=== PATIENT | female | born 1940 | race Caucasian/White ===

== ENCOUNTER 2016-11-02 21:14 | Inpatient (IN) | payer MEDICARE ==
--- NOTE | 2016-11-02 21:27 | Emergency Department Report ---
HPI - General Time Seen by Provider: 11/02/16 21:20 - HPI HPI: Room 23 Patient is a 76-year-old female presenting with chief complaint of altered mental status. The patient's last known well time was at approximately 16:00 where she was walking and talking like her normal self. The daughter states at approximately 16:00 the patient was found to be altered. The patient would not speak or follow commands. The daughter states when the patient attempted to walk she appeared to be dragging her right side. The patient does not respond to questions when spoken in [place]. Location: Mental status Duration: [see above] Quality: Altered Severity: Moderate Modifying factors: [see above] Context: [see above] Mode of transportation: EMS ED Past Medical Hx - Past Medical History Hx Hypertension: Yes Additional medical history: Thyroid, Osteoporosis - Surgical History Hx Cholecystectomy: Yes - Family History Family history: no significant - Social History Smoking Status: Unknown if ever smoked - Medications Home Medications: Home Medications Medication Instructions Recorded Confirmed Last Taken Type Alendronate Sodium [Fosamax] 70 mg PO QWEEK 01/16/16 01/16/16 Unknown History Aspirin EC [Aspirin Enteric Coated 81 mg PO QDAY 01/16/16 01/16/16 Unknown History TAB] Ferrous Gluconate [Fergon 325 MG 325 mg PO QDAY 01/16/16 01/16/16 Unknown History tab] Levothyroxine [Synthroid] 25 mcg PO QAM 01/16/16 01/16/16 Unknown History Meloxicam [Mobic] 7.5 mg PO QDAY 01/16/16 01/16/16 Unknown History Oxybutynin Chloride [Ditropan Xl] 10 mg PO QDAY 01/16/16 01/16/16 Unknown History Simvastatin [Zocor TAB] 10 mg PO QHS 01/16/16 01/16/16 Unknown History Famotidine [Pepcid] 20 mg PO BID #60 tablet 01/19/16 Unknown Rx ED Review of Systems ROS: Stated complaint: POSS STROKE Other details as noted in HPI Comment: Unobtainable due to pts medical conditions Physical Exam - Physical Exam Physical Exam: GENERAL: The patient is well-developed well-nourished elderly female lying on stretcher nonverbal and occasionally making eye contact and exhibits lipsmacking at times. [] HEENT: Normocephalic. Atraumatic. has moist mucous membranes. NECK: Supple. Trachea midline CHEST/LUNGS: Clear to auscultation. There is no respiratory distress noted. HEART/CARDIOVASCULAR: Regular. There is no tachycardia. There is no gallop rub or murmur. ABDOMEN: Abdomen is soft, nontender. Patient has normal bowel sounds. There is no abdominal distention. SKIN: There is no rash. There is no edema. There is no diaphoresis. NEURO: The patient is awake with eyes open but is nonverbal. The patient is only intermittently cooperative with commands (the patient does attempt to move her feet when commanded). Minimal movement seen at the right foot when prompted to move it. The patient is nonverbal MUSCULOSKELETAL: There is no evidence of acute injury. ED Course - Consultations Consultation #1: 11/02/16 21:[address] Butler- chuck discussed and he recommends consulting the on-call interventionalist Dr. Mittal Consultation #2: 11/02/16 22:[address] Mittal- chuck discussed and he recommends repeating EKG 11/02/16 22:17 Repeat EKG sent to Dr. Mittal and discussed. Does not believe it represents a STEMI. Recommends canceling the STEMI. Will follow-up with troponin results 11/02/16 22:[address] Mittal-recommends administering aspirin, heparin and atorvastatin 40 mg. Having patient admitted by the hospitalist ED Medical Decision Making - Lab Data Result diagrams: 11/02/16 21:20 11/02/16 21:20 Laboratory Tests 11/02/16 11/02/16 11/02/16 21:20 21:20 21:20 WBC 27.3 H RBC 3.87 Hgb 11.9 Hct 34.8 MCV 90 MCH 31 MCHC 34 RDW 13.3 Plt Count 539 H Add Manual Diff Complete Total Counted 100 Seg Neutrophils % Flat Lock Machine Operator Seg Neuts % (Manual) 89.0 H Band Neutrophils % 0 Lymphocytes % (Manual) 7.0 L Reactive Lymphs % (Man) 0 Monocytes % (Manual) 4.0 Eosinophils % (Manual) 0 Basophils % (Manual) 0 Metamyelocytes % 0 Myelocytes % 0 Promyelocytes % 0 Blast Cells % 0 Nucleated RBC % Not Reportable Seg Neutrophils # Man 24.3 H Band Neutrophils # 0.0 Lymphocytes # (Manual) 1.9 Abs React Lymphs (Man) 0.0 Monocytes # (Manual) 1.1 H Eosinophils # (Manual) 0.0 Basophils # (Manual) 0.0 Metamyelocytes # 0.0 Myelocytes # 0.0 Promyelocytes # 0.0 Blast Cells # 0.0 WBC Morphology Not Reportable Hypersegmented Neuts Not Reportable Hyposegmented Neuts Not Reportable Hypogranular Neuts Not Reportable Smudge Cells Not Reportable Toxic Granulation Not Reportable Toxic Vacuolation Not Reportable Dohle Bodies Not Reportable Pelger-Huet Anomaly Not Reportable Shweta Rods Not Reportable Platelet Estimate Appears increased Clumped Platelets Not Reportable Plt Clumps, EDTA Not Reportable Large Platelets Not Reportable Giant Platelets Not Reportable Platelet Satelliting Not Reportable Plt Morphology Comment Not Reportable RBC Morphology Not Reportable Dimorphic RBCs Not Reportable Polychromasia Not Reportable Hypochromasia Not Reportable Poikilocytosis 1+ Anisocytosis 1+ Microcytosis Not Reportable Macrocytosis Not Reportable Spherocytes Not Reportable Pappenheimer Bodies Not Reportable Sickle Cells Not Reportable Target Cells Not Reportable Tear Drop Cells Not Reportable Ovalocytes Not Reportable Helmet Cells Not Reportable [place] Bodies Not Reportable [place] Rings Not Reportable [place] Cells Not Reportable Bite Cells Not Reportable Crenated Cell Not Reportable Elliptocytes Not Reportable Acanthocytes (Spur) Not Reportable Rouleaux Not Reportable Hemoglobin C Crystals Not Reportable Schistocytes Not Reportable Malaria parasites Not Reportable Renny Bodies Not Reportable Hem Pathologist Commnt No PT 13.5 INR 1.04 APTT 25.3 Thrombin Time 15.3 Sodium 115 L* Potassium 4.8 Chloride 78.0 L Carbon Dioxide 21 L Anion Gap 22 BUN 8 Creatinine 0.6 L Estimated GFR > 60 BUN/Creatinine Ratio 13.33 Glucose 217 H Calcium 8.9 Total Creatine Kinase 234 H CK-MB (CK-2) 17.8 H CK-MB (CK-2) Rel Index 7.6 H Troponin T 0.385 H* TSH Free T4 11/02/16 21:20 WBC RBC Hgb Hct MCV MCH MCHC RDW Plt Count Add Manual Diff Total Counted Seg Neutrophils % Seg Neuts % (Manual) Band Neutrophils % Lymphocytes % (Manual) Reactive Lymphs % (Man) Monocytes % (Manual) Eosinophils % (Manual) Basophils % (Manual) Metamyelocytes % Myelocytes % Promyelocytes % Blast Cells % Nucleated RBC % Seg Neutrophils # Man Band Neutrophils # Lymphocytes # (Manual) Abs React Lymphs (Man) Monocytes # (Manual) Eosinophils # (Manual) Basophils # (Manual) Metamyelocytes # Myelocytes # Promyelocytes # Blast Cells # WBC Morphology Hypersegmented Neuts Hyposegmented Neuts Hypogranular Neuts Smudge Cells Toxic Granulation Toxic Vacuolation Dohle Bodies Pelger-Huet Anomaly Shweta Rods Platelet Estimate Clumped Platelets Plt Clumps, EDTA Large Platelets Giant Platelets Platelet Satelliting Plt Morphology Comment RBC Morphology Dimorphic RBCs Polychromasia Hypochromasia Poikilocytosis Anisocytosis Microcytosis Macrocytosis Spherocytes Pappenheimer Bodies Sickle Cells Target Cells Tear Drop Cells Ovalocytes Helmet Cells [place] Bodies [place] Rings Chhaya Cells Bite Cells Crenated Cell Elliptocytes Acanthocytes (Spur) Rouleaux Hemoglobin C Crystals Schistocytes Malaria parasites Renny Bodies Hem Pathologist Commnt PT INR APTT Thrombin Time Sodium Potassium Chloride Carbon Dioxide Anion Gap BUN Creatinine Estimated GFR BUN/Creatinine Ratio Glucose Calcium Total Creatine Kinase CK-MB (CK-2) CK-MB (CK-2) Rel Index Troponin T TSH 0.397 Free T4 2.02 H - EKG Data -: EKG Interpreted by Me EKG shows normal: sinus rhythm Rate: normal - EKG Data When compared to previous EKG there are: changes noted Interpretation: nonspecific ST-T wave [place] (ST elevation in leads V1, V2), other (EKG #[address] elevation V1, V2 without reciprocal changes) - Radiology Data Radiology results: report reviewed, image reviewed (CT head) - Differential Diagnosis altered mental status, CVA, hypothyroidism, ICH Critical care attestation.: If time is entered above; I have spent that time in minutes in the direct care of this critically ill patient, excluding procedure time. ED Disposition Clinical Impression: Altered mental status, Hyponatremia, Fever, Leukocytosis Disposition: OP ADMITTED IP TO THIS HOSP Is pt being admited?: Yes Does the pt Need Aspirin: Yes Condition: Serious Referrals: PRIMARY CARE, [Primary Care Provider] - 3-5 Days Time of Disposition: 22:46 (hospitalist notified)
[2016-11-02 21:32] LABS: Hematocrit 34.8 % (30.3-42.9); Hemoglobin 11.9 gm/dl (10.1-14.3); Mean Corpuscular HGB Conc 34 % (30-34); Mean Corpuscular Hemoglobin 31 pg (28-32); Mean Corpuscular Volume 90 fl (79-97); Platelet Count 539 K/mm3 (140-440); Red Blood Count 3.87 M/mm3 (3.65-5.03); Red Cell Distribution Width 13.3 % (13.2-15.2)
[2016-11-02 21:33] LABS: White Blood Count 27.3 K/mm3 (4.5-11.0)
--- NOTE | 2016-11-02 21:40 | Cat Scan Report ---
FINAL REPORT EXAM: CT HEAD/BRAIN WO CON HISTORY: altered mental status, right-sided weakness TECHNIQUE: CT imaging is acquired through the brain without contrast. Transaxial reformations are provided. PRIORS: None. FINDINGS: Ventricles and CSF spaces are proportionately enlarged, consistent with parenchymal atrophy. Scattered deep and subcortical white matter hypodense foci are confluent in some areas and are compatible with microvascular angiopathy. Basal ganglia mineralization. No acute intracranial hemorrhage or mass effect. Calvarium and superficial scalp are intact. Partially visualized paranasal sinuses are clear. Mastoids are clear. IMPRESSION: No acute intracranial abnormality. Consider MRI follow-up. 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 Dr. Centeno notified of findings at 2036 CLAIMS AUDITOR following the examination.
[2016-11-02 22:00] LABS: Creatine Kinase MB 17.8 ng/mL (0.0-4.0)
[2016-11-02] MEDS ORDERED: HEPARIN ONE (22:00)
[2016-11-02] MEDS ORDERED: NACL 0.9% 1000 ML 0 ML ONE (22:00)
[2016-11-02 22:01] LABS: Anion Gap 22 mmol/L; BUN/Creatinine Ratio 13.33; Blood Urea Nitrogen 8 mg/dL (7-17); Calcium 8.9 mg/dL (8.4-10.2); Carbon Dioxide 21 mmol/L (22-30); Creatine Kinase 234 units/L (30-135); Glucose 217 mg/dL (65-100); INR 1.04 (0.87-1.13); Potassium 4.8 mmol/L (3.6-5.0)
[2016-11-02] MEDS ORDERED: ASPIRIN ONE (22:01)
[2016-11-02 22:02] LABS: Partial Thromboplastin Time 25.3 Sec. (24.2-36.6)
[2016-11-02 22:26] LABS: Basophils % (Manual) 0 % (0.0-1.8); Blastocytes % (Manual) 0 %; Eosinophils % (Manual) 0 % (0.0-4.3)
[2016-11-02] MEDS ORDERED: HEPARIN 10,000 UNITS/10 ML IV ONE (22:26)
[2016-11-02 22:27] LABS: Anisocytosis 1+; Diff Status Complete; Platelet Estimate Appears Increased; Poikilocytosis 1+
[2016-11-02] MEDS ORDERED: ASPIRIN PR ONE (22:27)
[2016-11-02] MEDS ORDERED: NACL 0.9% 1000 ML 1,000 ML ONE (22:29)
[2016-11-02 22:30] LABS: Sodium 115 mmol/L (137-145)
[2016-11-02] MEDS ORDERED: NACL 0.9% 1000 ML 1,000 ML IV ONE (22:33)
[2016-11-02 22:45] LABS: Cholesterol 142 mg/dL (50-199); HDL Cholesterol 52 mg/dL (40-59); LDL Cholesterol,Direct 67 mg/dL (50-130); Triglycerides 115 mg/dL (2-149)
[2016-11-02 22:51] LABS: Urine Drugs of Abuse Note Disclamer
[2016-11-02] MEDS ORDERED: ZOSYN/NS 4.5GM/100ML 4.5 GM/100 ML VIAL IV ONE (22:51)
[2016-11-02] MEDS ORDERED: HEPARIN/ 0.45% NACL-25,000 UNIT/500 ML 25,000 UNIT/500 ML BAG IV SCH (23:00)
[2016-11-02 23:37] LABS: Bilirubin,Urine NEG (Negative); Blood,Urine SM (Negative); Ketones,Urine NEG (Negative); Leukocyte Esterase,Urine NEG (Negative); Nitrite,Urine NEG (Negative); Urobilinogen,Urine < 2.0 mg/dL (<2.0); WBC,Urine < 1.0 /HPF (0.0-6.0)
--- NOTE | 2016-11-02 23:56 | History and Physical Report ---
History of Present Illness Date of examination: 11/02/16 Date of admission: 11/02/2016 Chief complaint: Altered altered sensorium since 4 PM. History of present illness: Altered sensorium since 4 PM. 76-year-old female presents to the ER with absent mental status. Patient's last well-known time was 1600 hrs. where she was walking and talking like her normal self. Around 4 PM patient was noted to have altered mental status. Patient is confused and smacking her lips. Also not using her right side well. Not walking. No nausea no vomiting. No chest pain. No diaphoresis no palpitations. Past medical history significant for hypertension hypothyroidism and osteoporosis and urinary incontinence. No fever no chills. Past History Past Medical History: anemia, arthritis, hypertension, hypothyroidism, other ( osteoporosis urinary incontinence) Past Surgical History: cholecystectomy Social history: denies: smoking, alcohol abuse Family history: hypertension Medications and Allergies Allergies Allergy/AdvReac Type Severity Reaction Status Date / Time No Known Allergies Allergy Verified 01/16/16 22:10 Home Medications Medication Instructions Recorded Confirmed Last Taken Type Alendronate Sodium [Fosamax] 70 mg PO QWEEK 01/16/16 01/16/16 Unknown History Aspirin EC [Aspirin Enteric Coated 81 mg PO QDAY 01/16/16 01/16/16 Unknown History TAB] Ferrous Gluconate [Fergon 325 MG 325 mg PO QDAY 01/16/16 01/16/16 Unknown History tab] Levothyroxine [Synthroid] 25 mcg PO QAM 01/16/16 01/16/16 Unknown History Meloxicam [Mobic] 7.5 mg PO QDAY 01/16/16 01/16/16 Unknown History Oxybutynin Chloride [Ditropan Xl] 10 mg PO QDAY 01/16/16 01/16/16 Unknown History Simvastatin [Zocor TAB] 10 mg PO QHS 01/16/16 01/16/16 Unknown History Famotidine [Pepcid] 20 mg PO BID #60 tablet 01/19/16 Unknown Rx Active Meds: Active Medications Atorvastatin Calcium (Lipitor) 40 mg PO QHS THAO Heparin Sodium/Sodium Chloride (Heparin/ 0.45% Nacl-25,000 Unit/500 Ml) 25,000 unit in 500 mls @ 12 mls/hr IV TITRATE THAO; 600 UNITS/HR PRN Reason: Protocol Last Admin: 11/02/16 22:45 Dose: 600 units/hr, 12 mls/hr Review of Systems All systems: negative Constitutional: no weight loss, no weight gain Ears, nose, mouth and throat: no nasal congestion, no nasal discharge, no hoarseness, no sore throat Breasts: deferred Cardiovascular: no chest pain, no orthopnea, no palpitations, no rapid/ irregular heart beat, no edema, no syncope Respiratory: no cough, no cough with sputum, no excessive sputum, no hemoptysis , no shortness of breath, no dyspnea on exertion Gastrointestinal: no nausea, no vomiting, no diarrhea, no constipation, no change in bowel habits Genitourinary Female: no dysuria, no urinary frequency, no urgency, no stress incontinence, no post void dribbling, no incomplete emptying, no urge incontinence Menstruation: ammenorrhea Rectal: no incontinence, no bleeding Musculoskeletal: no neck stiffness, no neck pain Integumentary: no rash, no pruritis, no redness, no sores Neurological: no seizures, no syncope Psychiatric: no anxiety, no depression Endocrine: no cold intolerance, no heat intolerance, no polyphagia, no excessive thirst Hematologic/Lymphatic: no easy bruising, no easy bleeding Allergic/Immunologic: no urticaria, no allergic rhinitis, no wheezing Exam - Physical Exam Narrative exam: Well-developed well-nourished female lying in bed confused - Constitutional Vitals: Temp Pulse Resp BP Pulse Ox 100.6 F H 112 H 16 133/85 100 11/02/16 21:51 11/02/16 23:00 11/02/16 23:00 11/02/16 23:00 11/02/16 23:00 General appearance: Present: no acute distress, well-nourished - EENT Eyes: Present: PERRL ENT: hearing intact, clear oral mucosa - Neck Neck: Present: supple, normal ROM - Respiratory Respiratory effort: normal Respiratory: bilateral: CTA - Cardiovascular Rhythm: regular Heart Sounds: Present: S1 & S2. Absent: rub, click - Extremities Extremities: pulses symmetrical, No edema Peripheral Pulses: within normal limits - Abdominal General gastrointestinal: Present: soft, non-tender, non-distended, normal bowel sounds Female genitourinary: Present: normal - Rectal Rectal Exam: deferred - Integumentary Integumentary: Present: clear, warm, dry - Musculoskeletal Musculoskeletal: gait normal, strength equal bilaterally - Psychiatric Psychiatric: other (confused and depressed. Altered SENSORIUM.) - Neurologic Neurologic: CNII-XII intact, moves all extremities - Allied Health Allied health notes reviewed: nursing, case management Results - Labs CBC & Chem 7: 11/02/16 21:20 11/02/16 21:20 Labs: Laboratory Last Values WBC 27.3 K/mm3 (4.5-11.0) H 11/02/16 21:20 RBC 3.87 M/mm3 (3.65-5.03) 11/02/16 21:20 Hgb 11.9 gm/dl (10.1-14.3) 11/02/16 21:20 Hct 34.8 % (30.3-42.9) 11/02/16 21:20 MCV 90 fl (79-97) 11/02/16 21:20 MCH 31 pg (28-32) 11/02/16 21:20 MCHC 34 % (30-34) 11/02/16 21:20 RDW 13.3 % (13.2-15.2) 11/02/16 21:20 Plt Count 539 K/mm3 (140-440) H 11/02/16 21:20 Add Manual Diff Complete 11/02/16 21:20 Total Counted 100 11/02/16 21:20 Seg Neutrophils % Mannequin Wig Maker 11/02/16 21:20 Seg Neuts % (Manual) 89.0 % (40.0-70.0) H 11/02/16 21:20 Band Neutrophils % 0 % 11/02/16 21:20 Lymphocytes % (Manual) 7.0 % (13.4-35.0) L 11/02/16 21:20 Reactive Lymphs % (Man) 0 % 11/02/16 21:20 Monocytes % (Manual) 4.0 % (0.0-7.3) 11/02/16 21:20 Eosinophils % (Manual) 0 % (0.0-4.3) 11/02/16 21:20 Basophils % (Manual) 0 % (0.0-1.8) 11/02/16 21:20 Metamyelocytes % 0 % 11/02/16 21:20 Myelocytes % 0 % 11/02/16 21:20 Promyelocytes % 0 % 11/02/16 21:20 Blast Cells % 0 % 11/02/16 21:20 Nucleated RBC % Not Reportable 11/02/16 21:20 Seg Neutrophils # Man 24.3 K/mm3 (1.8-7.7) H 11/02/16 21:20 Band Neutrophils # 0.0 K/mm3 11/02/16 21:20 Lymphocytes # (Manual) 1.9 K/mm3 (1.2-5.4) 11/02/16 21:20 Abs React Lymphs (Man) 0.0 K/mm3 11/02/16 21:20 Monocytes # (Manual) 1.1 K/mm3 (0.0-0.8) H 11/02/16 21:20 Eosinophils # (Manual) 0.0 K/mm3 (0.0-0.4) 11/02/16 21:20 Basophils # (Manual) 0.0 K/mm3 (0.0-0.1) 11/02/16 21:20 Metamyelocytes # 0.0 K/mm3 11/02/16 21:20 Myelocytes # 0.0 K/mm3 11/02/16 21:20 Promyelocytes # 0.0 K/mm3 11/02/16 21:20 Blast Cells # 0.0 K/mm3 11/02/16 21:20 WBC Morphology Not Reportable 11/02/16 21:20 Hypersegmented Neuts Not Reportable 11/02/16 21:20 Hyposegmented Neuts Not Reportable 11/02/16 21:20 Hypogranular Neuts Not Reportable 11/02/16 21:20 Smudge Cells Not Reportable 11/02/16 21:20 Toxic Granulation Not Reportable 11/02/16 21:20 Toxic Vacuolation Not Reportable 11/02/16 21:20 Dohle Bodies Not Reportable 11/02/16 21:20 Pelger-Huet Anomaly Not Reportable 11/02/16 21:20 Shweta Rods Not Reportable 11/02/16 21:20 Platelet Estimate Appears increased 11/02/16 21:20 Clumped Platelets Not Reportable 11/02/16 21:20 Plt Clumps, EDTA Not Reportable 11/02/16 21:20 Large Platelets Not Reportable 11/02/16 21:20 Giant Platelets Not Reportable 11/02/16 21:20 Platelet Satelliting Not Reportable 11/02/16 21:20 Plt Morphology Comment Not Reportable 11/02/16 21:20 RBC Morphology Not Reportable 11/02/16 21:20 Dimorphic RBCs Not Reportable 11/02/16 21:20 Polychromasia Not Reportable 11/02/16 21:20 Hypochromasia Not Reportable 11/02/16 21:20 Poikilocytosis 1+ 11/02/16 21:20 Anisocytosis 1+ 11/02/16 21:20 Microcytosis Not Reportable 11/02/16 21:20 Macrocytosis Not Reportable 11/02/16 21:20 Spherocytes Not Reportable 11/02/16 21:20 Pappenheimer Bodies Not Reportable 11/02/16 21:20 Sickle Cells Not Reportable 11/02/16 21:20 Target Cells Not Reportable 11/02/16 21:20 Tear Drop Cells Not Reportable 11/02/16 21:20 Ovalocytes Not Reportable 11/02/16 21:20 Helmet Cells Not Reportable 11/02/16 21:20 [place] Bodies Not Reportable 11/02/16 21:20 [place] Rings Not Reportable 11/02/16 21:20 Chhaya Cells Not Reportable 11/02/16 21:20 Bite Cells Not Reportable 11/02/16 21:20 Crenated Cell Not Reportable 11/02/16 21:20 Elliptocytes Not Reportable 11/02/16 21:20 Acanthocytes (Spur) Not Reportable 11/02/16 21:20 Rouleaux Not Reportable 11/02/16 21:20 Hemoglobin C Crystals Not Reportable 11/02/16 21:20 Schistocytes Not Reportable 11/02/16 21:20 Malaria parasites Not Reportable 11/02/16 21:20 Renny Bodies Not Reportable 11/02/16 21:20 Hem Pathologist Commnt No 11/02/16 21:20 PT 13.5 Sec. (12.2-14.9) 11/02/16 21:20 INR 1.04 (0.87-1.13) 11/02/16 21:20 APTT 25.3 Sec. (24.2-36.6) 11/02/16 21:20 Thrombin Time 15.3 Sec. (15.1-19.6) 11/02/16 21:20 Sodium 115 mmol/L (137-145) L* 11/02/16 21:20 Potassium 4.8 mmol/L (3.6-5.0) 11/02/16 21:20 Chloride 78.0 mmol/L (98-107) L 11/02/16 21:20 Carbon Dioxide 21 mmol/L (22-30) L 11/02/16 21:20 Anion Gap 22 mmol/L 11/02/16 21:20 BUN 8 mg/dL (7-17) 11/02/16 21:20 Creatinine 0.6 mg/dL (0.7-1.2) L 11/02/16 21:20 Estimated GFR > 60 ml/min 11/02/16 21:20 BUN/Creatinine Ratio 13.33 % 11/02/16 21:20 Glucose 217 mg/dL (65-100) H 11/02/16 21:20 Calcium 8.9 mg/dL (8.4-10.2) 11/02/16 21:20 Total Creatine Kinase 234 units/L (30-135) H 11/02/16 21:20 CK-MB (CK-2) 17.8 ng/mL (0.0-4.0) H 11/02/16 21:20 CK-MB (CK-2) Rel Index 7.6 (0-4) H 11/02/16 21:20 Troponin T 0.385 ng/mL (0.00-0.029) H* 11/02/16 21:20 Triglycerides 115 mg/dL (2-149) 11/02/16 21:20 Cholesterol 142 mg/dL (50-199) 11/02/16 21:20 LDL Cholesterol Direct 67 mg/dL (50-130) 11/02/16 21:20 HDL Cholesterol 52 mg/dL (40-59) 11/02/16 21:20 Cholesterol/HDL Ratio 2.73 % 11/02/16 21:20 TSH 0.397 mlU/mL (0.270-4.200) 11/02/16 21:20 Free T4 2.02 ng/dL (0.76-1.46) H 11/02/16 21:20 Urine Color Yellow (Yellow) 11/02/16 22:00 Urine Turbidity Clear (Clear) 11/02/16 22:00 Urine pH 8.0 (5.0-7.0) H 11/02/16 22:00 Ur Specific [place] 1.008 (1.003-1.030) 11/02/16 22:00 Urine Protein 30 mg/dl mg/dL (Negative) 11/02/16 22:00 Urine Glucose (UA) >=500 mg/dL (Negative) 11/02/16 22:00 Urine Ketones Neg mg/dL (Negative) 11/02/16 22:00 Urine Blood Sm (Negative) 11/02/16 22:00 Urine Nitrite Neg (Negative) 11/02/16 22:00 Urine Bilirubin Neg (Negative) 11/02/16 22:00 Urine Urobilinogen < 2.0 mg/dL (<2.0) 11/02/16 22:00 Ur Leukocyte Esterase Neg (Negative) 11/02/16 22:00 Urine WBC (Auto) < 1.0 /HPF (0.0-6.0) 11/02/16 22:00 Urine RBC (Auto) 2.0 /HPF (0.0-6.0) 11/02/16 22:00 Urine Opiates Screen Presumptive negative 11/02/16 22:00 Urine Methadone Screen Presumptive negative 11/02/16 22:00 Ur Barbiturates Screen Presumptive negative 11/02/16 22:00 Ur Phencyclidine Scrn Presumptive negative 11/02/16 22:00 Ur Amphetamines Screen Presumptive negative 11/02/16 22:00 U Benzodiazepines Scrn Presumptive negative 11/02/16 22:00 Urine Cocaine Screen Presumptive negative 11/02/16 22:00 U Marijuana (THC) Screen Presumptive negative 11/02/16 22:00 Drugs of Abuse Note Disclamer 11/02/16 22:00 Short CBC 11/02/16 Range/Units 21:20 WBC 27.3 H (4.5-11.0) K/mm3 Hgb 11.9 (10.1-14.3) gm/dl Hct 34.8 (30.3-42.9) % Plt Count 539 H (140-440) K/mm3 BMP 11/02/16 21:20 Sodium 115 L* Potassium 4.8 Chloride 78.0 L Carbon Dioxide 21 L BUN 8 Creatinine 0.6 L Glucose 217 H Calcium 8.9 Cardiac Enzymes 11/02/16 Range/Units 21:20 Total Creatine Kinase 234 H (30-135) units/L CK-MB (CK-2) 17.8 H (0.0-4.0) ng/mL Troponin T 0.385 H* (0.00-0.029) ng/mL Urine 11/02/16 Range/Units 22:00 Urine Color Yellow (Yellow) Urine pH 8.0 H (5.0-7.0) Ur Specific [place] 1.008 (1.003-1.030) Urine Protein 30 mg/dl (Negative) mg/dL Urine Glucose (UA) >=500 (Negative) mg/dL - Imaging and Cardiology EKG: report reviewed (EKG shows sinus tachycardia nonspecific ST-T wave abnormalities no significant change from 03/07/2012.) Assessment and Plan Advance Directives: Yes (full code) VTE prophylaxis?: Chemical (Lovenox 40 mg subcutaneous daily.) - Patient Problems (1) Sepsis Current Visit: Yes Status: Acute Qualifiers: Sepsis type: S Plan to address problem: Sepsis workup. Broad spectrum antibiotics in the form of Zosyn. Source of infection unclear. Patient moving all 4 extremities. Stroke very unlikely. We will repeat the lactate within 3 hours. We'll admit to the floor. Medical (2) Hyponatremia Current Visit: Yes Status: Acute Plan to address problem: etiology of hyponatremia unclear. Patient not on any diuretics. We will get urine lites. Infuse 3% normal saline at 40 mL per hour. (3) Altered mental status Current Visit: Yes Status: Acute Qualifiers: Altered mental status type: disorientation Coma depth: C Coma timing: C Qualified Code(s): R41.0 - Disorientation, unspecified Plan to address problem: Altered mental status secondary to sepsis and hyponatremia. 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 We will get urine lytes. (4) Osteoporosis Current Visit: Yes Status: Chronic Plan to address problem: Will hold her alendronate for the time being. (5) Hypothyroidism Current Visit: Yes Status: Chronic Qualifiers: Hypothyroidism type: acquired Qualified Code(s): E03.9 - Hypothyroidism, unspecified Plan to address problem: Continue Synthroid 25 g by mouth daily. (6) Urinary incontinence Current Visit: Yes Status: Chronic Qualifiers: Urinary Incontinence type: mixed stress and urge incontinence Qualified Code(s): N39.46 - Mixed incontinence Plan to address problem: Continue oxybutynin 10 mg once a day. (7) Osteoarthritis Current Visit: Yes Status: Chronic Qualifiers: Osteoarthritis location: hip Osteoarthritis type: O Spinal region: S Spinal osteoarthritis complication: S Laterality: L Plan to address problem: Continue meloxicam 7.5 once a day. (8) DVT prophylaxis Current Visit: Yes Status: Acute Plan to address problem: Lovenox 40 mg subcutaneous daily.
--- NOTE | 2016-11-03 01:46 | Admit Criteria Form ---
Admission Criteria Documentation: HYPONATREMIA; HYPERNATREMIA; HYPOKALEMIA; HYPERKALEMIA; HYPOCALCEMIA; HYPERCALCEMIA Clinical Indications for Inpatient Care (Place 'X' for any and all applicable criteria): Ongoing inpatient care may be indicated for ANY ONE of the following [G](1)(2)(3 )(5): [ X]I. Hyponatremia with ANY ONE of the following: [ X]a) Sodium less than 130 mEq/L (mmol/L) (new) (6)(22) [ ]b) Sodium less than 135 mEq/L (mmol/L) with ANY ONE of the following: [ ]i) Severe medical etiology requiring inpatient management (eg, heart failure, hypovolemia) [ ]ii) Altered mental status [ ]iii) Seizures [ ]II. Hypernatremia with ANY ONE of the following: [ ]a) Sodium greater than 155 mEq/L (mmol/L) [ ]b) Sodium greater than 150 mEq/L (mmol/L) with ANY ONE of the following: [ ] i) Altered mental status [ ]ii) Seizures [ ]iii) Severe medical etiology (eg, hypovolemia, diabetes insipidus) [ ]iv) Severe weakness [ ]v) Severe medical etiology (eg, hemolysis, infection, drug overdose) [ ]III. Hypokalemia with ANY ONE of the following: [ ]a) Potassium less than 2.5 mEq/L (mmol/L) despite outpatient and emergency treatment [ ]b) Potassium less than 3.0 mEq/L (mmol/L) with ANY ONE of the following: [ ]i) Weakness [ ]ii) Cardiac abnormality (eg, arrhythmia, conduction disturbance) [ ]iii) Cardiac ischemia [ ]iv) Ileus [ ]v) Ongoing medical cause requiring inpatient management. ( e.g., acute renal wasting, SIADH) [ ]vi) Other severe symptoms [ ] IV. Hyperkalemia with ANY ONE of the following: [ ]a) Potassium greater than 6.5 mEq/L (mmol/L) [ ]b) Potassium greater than 5 mEq/L (mmol/L) with ANY ONE of the following: [ ]i) Severe ECG findings [H] [ ]ii) Acute worsening of renal failure (creatinine greater than 2.5 mg/dL (221 micromoles/L) or significant elevation for age and size) [ ] V. Hypocalcemia with ANY ONE of the following: [ ]a) Calcium less than 7 mg/dL (1.75 mmol/L) despite outpatient and emergency treatment(19) [ ]b) Calcium less than 8 mg/dL (2 mmol/L) with significant symptoms or findings; examples include: [ ]i) Cardiac abnormality (eg, arrhythmia or conduction disturbance) [ ]ii) Altered mental status [ ]iii) Seizures [ ]iv) Breathing difficulty [ ]v) Muscle spasms [ ]. Hypercalcemia with ANY ONE of the following: [ ]a) Calcium greater than 14 mg/dL (3.5 mmol/L) [ ]b) Calcium greater than 12 mg/dL (3 mmol/L) with ANY ONE of the following: [ ]i) Significant dehydration or hypovolemia as indicated by ANY ONE of the following(2): [ ]1. Clinically significant dehydration as indicated by ANY ONE of the following: [ ]A. Acute loss of weight from baseline (5% of body weight in adults, 9% in pediatric patients) [ ]B. Hemodynamic instability [ ]C. Acute renal failure [ ]D. Serum sodium greater than 150 mEq/L (mmol/L) [ ]2) Dehydration that is persistent indicated by ALL of the following: [ ]A. Oral rehydration therapy not tolerated or insufficient to adequately correct dehydration [ ]B. Appropriate intravenous treatment (eg, fluids ) does not readily correct dehydration ie, after 12 to 24 hours of treatment) [ ]ii) Significant symptoms or findings; examples include: [ ]1) Altered mental status [ ]2) Cardiac abnormality (eg, arrhythmia, conduction disturbance) [ ]3) Cardiac abnormality (eg, arrhythmia, conduction disturbance) The original [email or web address] [email or web address] content created by [employer] has been revised. The portions of the content which have been revised are identified through the use of italic text or in bold, and [facility] has neither reviewed nor approved the modified material. All other unmodified content is copyright [facility] [employer] Please see references footnoted in the original [facility] [employer] edition 2016 Admission Criteria Met: Yes
[2016-11-03] MEDS ORDERED: MILK OF MAGNESIA PO PRN (03:28)
[2016-11-03] MEDS ORDERED: ZOFRAN IV PRN (03:28)
[2016-11-03] MEDS ORDERED: DULCOLAX PR PRN (03:28)
[2016-11-03] MEDS ORDERED: NACL 3% 500 ML IV ONE (03:36)
[2016-11-03] MEDS ORDERED: D5NS 1,000 ML IV SCH (04:00)
[2016-11-03] MEDS ORDERED: SYNTHROID PO SCH (06:00)
[2016-11-03 06:30] LABS: Anion Gap 22 mmol/L; Blood Urea Nitrogen 12 mg/dL (7-17); Calcium 8.5 mg/dL (8.4-10.2); Carbon Dioxide 22 mmol/L (22-30); Chloride 85.4 mmol/L (98-107); Glucose 185 mg/dL (65-100); Potassium 4.2 mmol/L (3.6-5.0); Sodium 125 mmol/L (137-145)
[2016-11-03] MEDS: ZOSYN/NS 4.5GM/100ML 4.5 GM/100 ML VIAL IV SCH ×3 (06:57→22:02)
--- NOTE | 2016-11-03 07:11 | Consultation ---
History of Present Illness - Reason for Consult Consult date: 11/03/16 hyponatremia - History of Present Illness Patient is a 76-year-old female with pmh significant for Hypothyroid, GERD , Hypothyroid, Urinary incontinence and previuos h/o Hyponatremia was brought into the ER by her daughter for evaluation of altered mental status. Unable to obtain any history from patient and family members speak very little Scottish. Around 4 PM on the day of presentation patient was noted to have altered mental status. Patient was confused, smacking her lips and not using her right side well. There was no h/o nausea, vomiting, diarrhea, fever, chills, chest pain, seizure or syncope. Her Sodium level was 115 on presentation has improved to 125 with 3% saline. Renal function is normal. Past History Past Medical History: anemia, arthritis, hypertension, hypothyroidism, other ( osteoporosis urinary incontinence) Past Surgical History: cholecystectomy Social history: denies: smoking, alcohol abuse Family history: hypertension Medications and Allergies Allergies Allergy/AdvReac Type Severity Reaction Status Date / Time No Known Allergies Allergy Verified 01/16/16 22:10 Home Medications Medication Instructions Recorded Confirmed Last Taken Type Alendronate Sodium [Fosamax] 70 mg PO QWEEK 01/16/16 01/16/16 Unknown History Aspirin EC [Aspirin Enteric Coated 81 mg PO QDAY 01/16/16 01/16/16 Unknown History TAB] Ferrous Gluconate [Fergon 325 MG 325 mg PO QDAY 01/16/16 01/16/16 Unknown History tab] Levothyroxine [Synthroid] 25 mcg PO QAM 01/16/16 01/16/16 Unknown History Meloxicam [Mobic] 7.5 mg PO QDAY 01/16/16 01/16/16 Unknown History Oxybutynin Chloride [Ditropan Xl] 10 mg PO QDAY 01/16/16 01/16/16 Unknown History Simvastatin [Zocor TAB] 10 mg PO QHS 01/16/16 01/16/16 Unknown History Famotidine [Pepcid] 20 mg PO BID #60 tablet 01/19/16 Unknown Rx Active Meds: Active Medications Acetaminophen (Tylenol) 650 mg PO Q4H PRN PRN Reason: Pain MILD(1-3)/Fever >100.5/LEE Atorvastatin Calcium (Lipitor) 40 mg PO QHS [facility] Bisacodyl (Dulcolax) 10 mg [place] QDAY PRN PRN Reason: Constipation unrelieved by MOM Enoxaparin Sodium (Lovenox) 40 mg SUB-Q QDAY [facility] Hydromorphone HCl (Dilaudid) 0.5 mg IV Q3H PRN PRN Reason: Pain , Severe (7-10) Heparin Sodium/Sodium Chloride (Heparin/ 0.45% Nacl-25,000 Unit/500 Ml) 25,000 unit in 500 mls @ 12 mls/hr IV TITRATE THAO; 600 UNITS/HR PRN Reason: Protocol Last Titration: 11/03/16 06:01 Dose: 600 units/hr, 12 mls/hr Dextrose/Sodium Chloride (D5ns) 1,000 mls @ 100 mls/hr IV DIRECT [facility]AO Piperacillin Sod/Tazobactam Sod (Zosyn/Ns 4.5gm/100ml) 4.5 gm in 100 mls @ 200 mls/hr IV Q8HR THAO PRN Reason: Protocol Last Admin: 11/03/16 06:57 Dose: 200 mls/hr Sodium Chloride (Nacl 3%) 500 mls @ 40 mls/hr IV ONCE.ED ONE Stop: 11/03/16 16:05 Last Admin: 11/03/16 05:21 Dose: 40 mls/hr Influenza Virus Vaccine Quadrival (Fluarix Quad [id number](36 Mos+)) 60 mcg IM .ONCE ONE Stop: 11/03/16 12:01 Levothyroxine Sodium (Synthroid) 25 mcg PO QAM@0600 [facility] Last Admin: 11/03/16 06:00 Dose: Not Given Magnesium Hydroxide (Milk Of Magnesia) 30 ml PO Q4H PRN PRN Reason: Constipation Ondansetron HCl (Zofran) 4 mg IV Q8H PRN PRN Reason: N/V unrelieved by Reglan Oxybutynin Chloride (Ditropan Xl) 10 mg PO QDAY [facility] Pneumococcal Polyvalent Vaccine (Pneumovax 23) 0.5 ml IM .ONCE ONE Stop: 11/03/16 12:01 Review of Systems ROS unobtainable: due to mental status Exam - Vital Signs Vital signs: Vital Signs Temp Pulse Resp BP Pulse Ox 100.6 F H 112 H 20 129/73 99 11/02/16 21:51 11/02/16 21:51 11/02/16 21:51 11/02/16 21:51 11/02/16 21:51 - General Appearance General appearance: well-developed, appears stated age, frail, other (no distress, exam is limited as she is not following any command or answering any questions even with her relatives talking to her) EENT: PERRL, mucous membranes moist Neck: Present: neck supple, trachea midline Respiratory: Clear to Ascultation Heart: regular, S1S2, no murmurs Gastrointestinal: Present: normoactive bowel sounds Integumentary: no rash Neurologic: other (able to move all 4 extremities) Musculoskeletal: Present: other (no edema) Results - Lab Results 11/02/16 21:20 11/04/16 06:06 Most recent lab results Calcium 8.5 mg/dL (8.4-10.2) 11/03/16 05:38 Assessment and Plan - Patient Problems (1) Hyponatremia Current Visit: Yes Status: Acute Plan to address problem: 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 Unknown precipitating factor. Will stop 3% saline and start on normal saline. Monitor Sodium level. Prognosis guarded. (2) Hypotension Current Visit: Yes Status: Acute Qualifiers: Hypotension type: H Trimester: T Plan to address problem: Sepsis. Started on normal saline. (3) Sepsis Current Visit: Yes Status: Acute Qualifiers: Sepsis type: S (4) Elevated troponin Current Visit: Yes Status: Acute (5) Encephalopathy acute Current Visit: Yes Status: Acute
[2016-11-03] MEDS ORDERED: NACL 0.9% 1000 ML 1,000 ML IV SCH (08:00)
--- NOTE | 2016-11-03 09:46 | XRay Report ---
Single view chest: Compared to 01/16/16. History: Fever, altered mental status. Findings: Normal cardiomediastinal silhouette. Trachea is midline. No consolidation, pneumothorax or pleural effusion. Impression: No acute cardiopulmonary findings.
[2016-11-03] MEDS: LOVENOX SUB-Q SCH ×2 (09:52→11:38)
[2016-11-03] MEDS: DITROPAN XL PO SCH (09:52)
[2016-11-03] MEDS ORDERED: NON-FORMULARY (Oxybutynin Chloride [Ditropan Xl] 10 MG) PO SCH (10:00)
--- NOTE | 2016-11-03 11:03 | Consultation ---
History of Present Illness Consult date: 11/03/16 Consult reason: abnormal cardiac enzymes History of present illness: Impression 1) Elevated troponin in setting of lactic acidosis 2) Suspect sepsis, she has h/o urinary incontinence, no acute cardiac disease 3) Altered MS related to hyponatremia, sepsis 4) HTN 5) Anemia Plan Conservative management, cont IV heparin x 48hrs for now Cycle troponin to evaluate trend. Supportive care for metabolic derangement. Past History Past Medical History: anemia, arthritis, hypertension, hypothyroidism, other ( osteoporosis urinary incontinence) Past Surgical History: cholecystectomy Social history: denies: smoking, alcohol abuse Family history: hypertension Medications and Allergies Allergies Allergy/AdvReac Type Severity Reaction Status Date / Time No Known Allergies Allergy Verified 01/16/16 22:10 Home Medications Medication Instructions Recorded Confirmed Last Taken Type Alendronate Sodium [Fosamax] 70 mg PO QWEEK 01/16/16 01/16/16 Unknown History Aspirin EC [Aspirin Enteric Coated 81 mg PO QDAY 01/16/16 01/16/16 Unknown History TAB] Ferrous Gluconate [Fergon 325 MG 325 mg PO QDAY 01/16/16 01/16/16 Unknown History tab] Levothyroxine [Synthroid] 25 mcg PO QAM 01/16/16 01/16/16 Unknown History Meloxicam [Mobic] 7.5 mg PO QDAY 01/16/16 01/16/16 Unknown History Oxybutynin Chloride [Ditropan Xl] 10 mg PO QDAY 01/16/16 01/16/16 Unknown History Simvastatin [Zocor TAB] 10 mg PO QHS 01/16/16 01/16/16 Unknown History Famotidine [Pepcid] 20 mg PO BID #60 tablet 01/19/16 Unknown Rx Active Meds: Active Medications Acetaminophen (Tylenol) 650 mg PO Q4H PRN PRN Reason: Pain MILD(1-3)/Fever >100.5/LEE Atorvastatin Calcium (Lipitor) 40 mg PO QHS [facility] Bisacodyl (Dulcolax) 10 mg [place] QDAY PRN PRN Reason: Constipation unrelieved by MOM Enoxaparin Sodium (Lovenox) 40 mg SUB-Q QDAY [facility] Last Admin: 11/03/16 09:52 Dose: 40 mg Hydromorphone HCl (Dilaudid) 0.5 mg IV Q3H PRN PRN Reason: Pain , Severe (7-10) Heparin Sodium/Sodium Chloride (Heparin/ 0.45% Nacl-25,000 Unit/500 Ml) 25,000 unit in 500 mls @ 12 mls/hr IV TITRATE THAO; 600 UNITS/HR PRN Reason: Protocol Last Titration: 11/03/16 06:01 Dose: 600 units/hr, 12 mls/hr Piperacillin Sod/Tazobactam Sod (Zosyn/Ns 4.5gm/100ml) 4.5 gm in 100 mls @ 200 mls/hr IV Q8HR THAO PRN Reason: Protocol Last Admin: 11/03/16 06:57 Dose: 200 mls/hr Sodium Chloride (Nacl 0.9% 1000 Ml) 1,000 mls @ 75 mls/hr IV DIRECT [facility] Influenza Virus Vaccine Quadrival (Fluarix Quad [id number](36 Mos+)) 60 mcg IM .ONCE ONE Stop: 11/03/16 12:01 Levothyroxine Sodium (Synthroid) 25 mcg PO QAM@0600 [facility] Last Admin: 11/03/16 06:00 Dose: Not Given Magnesium Hydroxide (Milk Of Magnesia) 30 ml PO Q4H PRN PRN Reason: Constipation Ondansetron HCl (Zofran) 4 mg IV Q8H PRN PRN Reason: N/V unrelieved by Reglan Oxybutynin Chloride (Ditropan Xl) 10 mg PO QDAY [facility] Last Admin: 11/03/16 09:52 Dose: 10 mg Pneumococcal Polyvalent Vaccine (Pneumovax 23) 0.5 ml IM .ONCE ONE Stop: 11/03/16 12:01 Review of Systems ROS unobtainable: due to mental status (language barrier, poor historian.) Physical Examination Vital Signs Temp Pulse Resp BP Pulse Ox 100.6 F H 112 H 20 129/73 99 11/02/16 21:51 11/02/16 21:51 11/02/16 21:51 11/02/16 21:51 11/02/16 21:51 Results 11/02/16 21:20 11/03/16 05:38 Comprehensive Metabolic Panel 11/03/16 Range/Units 05:38 Sodium 125 L D (137-145) mmol/L Potassium 4.2 (3.6-5.0) mmol/L Chloride 85.4 L (98-107) mmol/L Carbon Dioxide 22 (22-30) mmol/L BUN 12 (7-17) mg/dL Creatinine 0.5 L (0.7-1.2) mg/dL Glucose 185 H (65-100) mg/dL Calcium 8.5 (8.4-10.2) mg/dL
[2016-11-03] MEDS ORDERED: FLUARIX QUAD 2016-2017(36 MOS+) IM ONE (12:00)
[2016-11-03] MEDS ORDERED: PNEUMOVAX 23 IM ONE (12:00)
[2016-11-03 12:26] LABS: Bilirubin,Urine NEG (Negative); Blood,Urine LG (Negative); Ketones,Urine NEG (Negative); Leukocyte Esterase,Urine SM (Negative); Nitrite,Urine NEG (Negative); Urobilinogen,Urine < 2.0 mg/dL (<2.0)
[2016-11-03 12:27] LABS: RBC,Urine > 182.0 /HPF (0.0-6.0); WBC,Urine > 182.0 /HPF (0.0-6.0)
[2016-11-03] MEDS ORDERED: VANCOMYCIN/NS 1 GM/250 ML 1 GM/250 ML BAG IV ONE (13:00)
[2016-11-03] MEDS ORDERED: VANCOMYCIN PHARMACY TO DOSE IV SCH (13:00)
[2016-11-03] MEDS ORDERED: NACL 0.9% 500 ML 500 ML ONE (17:50)
[2016-11-03] MEDS ORDERED: NACL 0.9% 500 ML 500 ML IV ONE (18:04)
--- NOTE | 2016-11-03 21:34 | Progress Note ---
Assessment and Plan Assessment and plan: 1. Sepsis Tachycardic with significantly elevated WBC, and UA suggestive of UTI Blood and urine cultures obtained Check lactic acid Continue IV broad-spectrum antibiotics and IV fluids 2. Acute encephalopathy Secondary to sepsis/hypernatremia Treating underlying conditions 3. Severe Hyponatremia Na+ 115 on admission, today 131 Continue to closely monitor Nephrology following also 4. NSTEMI On IV heparin Awaiting cards evaluation 5. Hypothyroidism TSH within normal limits, but FT4 elevated, consistent with iatrogenic hyperthyroidism, so will hold levothyroxine 6. Hyperglycemia Stress reaction, hemoglobin A1c<6 7. Malnutrition Consult dietitian for supplementation 8. DVT prophylaxis Currently on heparin drip History Interval history: daughter translating, patient confused, but following commands Hospitalist Physical - Constitutional Vitals: Temp Pulse Resp BP Pulse Ox 98.2 F 98 H 16 83/54 95 11/03/16 12:00 11/03/16 18:52 11/03/16 18:52 11/03/16 18:52 11/03/16 17:39 General appearance: Present: no acute distress, cachectic - EENT Eyes: Present: PERRL, EOM intact. Absent: scleral icterus, conjunctival injection ENT: clear oral mucosa, poor dentition, no oropharyngeal erythema, no thrush - Neck Neck: Present: supple. Absent: enlarged thyroid, masses or JVD - Respiratory Respiratory effort: normal Respiratory: bilateral: CTA, negative: rales, rhonchi, wheezing - Cardiovascular Rhythm: other (tachycardic) Heart Sounds: Present: S1 & S2. Absent: systolic murmur - Extremities Extremities: no ischemia - Abdominal General gastrointestinal: soft, non-tender, non-distended, normal bowel sounds - Psychiatric Psychiatric: other (confused) - Neurologic Neurologic: moves all extremities Results - Labs CBC & Chem 7: 11/02/16 21:20 11/04/16 06:06 Labs: Laboratory Last Values WBC 27.3 K/mm3 (4.5-11.0) H 11/02/16 21:20 RBC 3.87 M/mm3 (3.65-5.03) 11/02/16 21:20 Hgb 11.9 gm/dl (10.1-14.3) 11/02/16 21:20 Hct 34.8 % (30.3-42.9) 11/02/16 21:20 MCV 90 fl (79-97) 11/02/16 21:20 MCH 31 pg (28-32) 11/02/16 21:20 MCHC 34 % (30-34) 11/02/16 21:20 RDW 13.3 % (13.2-15.2) 11/02/16 21:20 Plt Count 539 K/mm3 (140-440) H 11/02/16 21:20 Add Manual Diff Complete 11/02/16 21:20 Total Counted 100 11/02/16 21:20 Seg Neutrophils % Requirements Engineer 11/02/16 21:20 Seg Neuts % (Manual) 89.0 % (40.0-70.0) H 11/02/16 21:20 Band Neutrophils % 0 % 11/02/16 21:20 Lymphocytes % (Manual) 7.0 % (13.4-35.0) L 11/02/16 21:20 Reactive Lymphs % (Man) 0 % 11/02/16 21:20 Monocytes % (Manual) 4.0 % (0.0-7.3) 11/02/16 21:20 Eosinophils % (Manual) 0 % (0.0-4.3) 11/02/16 21:20 Basophils % (Manual) 0 % (0.0-1.8) 11/02/16 21:20 Metamyelocytes % 0 % 11/02/16 21:20 Myelocytes % 0 % 11/02/16 21:20 Promyelocytes % 0 % 11/02/16 21:20 Blast Cells % 0 % 11/02/16 21:20 Nucleated RBC % Not Reportable 11/02/16 21:20 Seg Neutrophils # Man 24.3 K/mm3 (1.8-7.7) H 11/02/16 21:20 Band Neutrophils # 0.0 K/mm3 11/02/16 21:20 Lymphocytes # (Manual) 1.9 K/mm3 (1.2-5.4) 11/02/16 21:20 Abs React Lymphs (Man) 0.0 K/mm3 11/02/16 21:20 Monocytes # (Manual) 1.1 K/mm3 (0.0-0.8) H 11/02/16 21:20 Eosinophils # (Manual) 0.0 K/mm3 (0.0-0.4) 11/02/16 21:20 Basophils # (Manual) 0.0 K/mm3 (0.0-0.1) 11/02/16 21:20 Metamyelocytes # 0.0 K/mm3 11/02/16 21:20 Myelocytes # 0.0 K/mm3 11/02/16 21:20 Promyelocytes # 0.0 K/mm3 11/02/16 21:20 Blast Cells # 0.0 K/mm3 11/02/16 21:20 WBC Morphology Not Reportable 11/02/16 21:20 Hypersegmented Neuts Not Reportable 11/02/16 21:20 Hyposegmented Neuts Not Reportable 11/02/16 21:20 Hypogranular Neuts Not Reportable 11/02/16 21:20 Smudge Cells Not Reportable 11/02/16 21:20 Toxic Granulation Not Reportable 11/02/16 21:20 Toxic Vacuolation Not Reportable 11/02/16 21:20 Dohle Bodies Not Reportable 11/02/16 21:20 Pelger-Huet Anomaly Not Reportable 11/02/16 21:20 Shweta Rods Not Reportable 11/02/16 21:20 Platelet Estimate Appears increased 11/02/16 21:20 Clumped Platelets Not Reportable 11/02/16 21:20 Plt Clumps, EDTA Not Reportable 11/02/16 21:20 Large Platelets Not Reportable 11/02/16 21:20 Giant Platelets Not Reportable 11/02/16 21:20 Platelet Satelliting Not Reportable 11/02/16 21:20 Plt Morphology Comment Not Reportable 11/02/16 21:20 RBC Morphology Not Reportable 11/02/16 21:20 Dimorphic RBCs Not Reportable 11/02/16 21:20 Polychromasia Not Reportable 11/02/16 21:20 Hypochromasia Not Reportable 11/02/16 21:20 Poikilocytosis 1+ 11/02/16 21:20 Anisocytosis 1+ 11/02/16 21:20 Microcytosis Not Reportable 11/02/16 21:20 Macrocytosis Not Reportable 11/02/16 21:20 Spherocytes Not Reportable 11/02/16 21:20 Pappenheimer Bodies Not Reportable 11/02/16 21:20 Sickle Cells Not Reportable 11/02/16 21:20 Target Cells Not Reportable 11/02/16 21:20 Tear Drop Cells Not Reportable 11/02/16 21:20 Ovalocytes Not Reportable 11/02/16 21:20 Helmet Cells Not Reportable 11/02/16 21:20 Cook-Vanderwagen Bodies Not Reportable 11/02/16 21:20 [place] Rings Not Reportable 11/02/16 21:20 [place] Cells Not Reportable 11/02/16 21:20 Bite Cells Not Reportable 11/02/16 21:20 Crenated Cell Not Reportable 11/02/16 21:20 Elliptocytes Not Reportable 11/02/16 21:20 Acanthocytes (Spur) Not Reportable 11/02/16 21:20 Rouleaux Not Reportable 11/02/16 21:20 Hemoglobin C Crystals Not Reportable 11/02/16 21:20 Schistocytes Not Reportable 11/02/16 21:20 Malaria parasites Not Reportable 11/02/16 21:20 Renny Bodies Not Reportable 11/02/16 21:20 Hem Pathologist Commnt No 11/02/16 21:20 PT 13.5 Sec. (12.2-14.9) 11/02/16 21:20 INR 1.04 (0.87-1.13) 11/02/16 21:20 APTT 25.3 Sec. (24.2-36.6) 11/02/16 21:20 Thrombin Time 15.3 Sec. (15.1-19.6) 11/02/16 21:20 Heparin Anti-Xa Level 0.47 U.I./ml (0.3-0.7) 11/03/16 04:40 Sodium 131 mmol/L (137-145) L 11/03/16 11:24 Potassium 4.2 mmol/L (3.6-5.0) 11/03/16 05:38 Chloride 85.4 mmol/L (98-107) L 11/03/16 05:38 Carbon Dioxide 22 mmol/L (22-30) 11/03/16 05:38 Anion Gap 22 mmol/L 11/03/16 05:38 BUN 12 mg/dL (7-17) 11/03/16 05:38 Creatinine 0.5 mg/dL (0.7-1.2) L 11/03/16 05:38 Estimated GFR > 60 ml/min 11/03/16 05:38 BUN/Creatinine Ratio 24.00 % 11/03/16 05:38 Glucose 185 mg/dL (65-100) H 11/03/16 05:38 POC Glucose 177 (70-105) H 11/03/16 17:45 Hemoglobin A1c 5.4 % (4-6) 11/03/16 04:40 Lactic Acid 2.3 mmol/L (0.7-2.0) H* 11/03/16 05:38 Calcium 8.5 mg/dL (8.4-10.2) 11/03/16 05:38 Total Creatine Kinase 234 units/L (30-135) H 11/02/16 21:20 CK-MB (CK-2) 17.8 ng/mL (0.0-4.0) H 11/02/16 21:20 CK-MB (CK-2) Rel Index 7.6 (0-4) H 11/02/16 21:20 Troponin T 0.385 ng/mL (0.00-0.029) H* 11/02/16 21:20 Triglycerides 115 mg/dL (2-149) 11/02/16 21:20 Cholesterol 142 mg/dL (50-199) 11/02/16 21:20 LDL Cholesterol Direct 67 mg/dL (50-130) 11/02/16 21:20 HDL Cholesterol 52 mg/dL (40-59) 11/02/16 21:20 Cholesterol/HDL Ratio 2.73 % 11/02/16 21:20 TSH 0.397 mlU/mL (0.270-4.200) 11/02/16 21:20 Free T4 2.02 ng/dL (0.76-1.46) H 11/02/16 21:20 Urine Color Red (Yellow) 11/03/16 11:45 Urine Turbidity Slightly-cloudy (Clear) 11/03/16 11:45 Urine pH 5.0 (5.0-7.0) 11/03/16 11:45 Ur Specific [place] 1.024 (1.003-1.030) 11/03/16 11:45 Urine Protein 100 mg/dl mg/dL (Negative) 11/03/16 11:45 Urine Glucose (UA) 50 mg/dL (Negative) 11/03/16 11:45 Urine Ketones Neg mg/dL (Negative) 11/03/16 11:45 Urine Blood Lg (Negative) 11/03/16 11:45 Urine Nitrite Neg (Negative) 11/03/16 11:45 Urine Bilirubin Neg (Negative) 11/03/16 11:45 Urine Urobilinogen < 2.0 mg/dL (<2.0) 11/03/16 11:45 Ur Leukocyte Esterase Sm (Negative) 11/03/16 11:45 Urine WBC (Auto) > 182.0 /HPF (0.0-6.0) H 11/03/16 11:45 Urine RBC (Auto) > 182.0 /HPF (0.0-6.0) 11/03/16 11:45 Urine Opiates Screen Presumptive negative 11/02/16 22:00 Urine Methadone Screen Presumptive negative 11/02/16 22:00 Ur Barbiturates Screen Presumptive negative 11/02/16 22:00 Ur Phencyclidine Scrn Presumptive negative 11/02/16 22:00 Ur Amphetamines Screen Presumptive negative 11/02/16 22:00 U Benzodiazepines Scrn Presumptive negative 11/02/16 22:00 Urine Cocaine Screen Presumptive negative 11/02/16 22:00 U Marijuana (THC) Screen Presumptive negative 11/02/16 22:00 Drugs of Abuse Note Disclamer 11/02/16 22:00 Blood Type B POSITIVE 11/02/16 22:05 Antibody Screen Negative 11/02/16 22:05
[2016-11-04] MEDS: NACL 0.45% 1000 ML 1,000 ML IV SCH ×2 (02:47→18:37)
[2016-11-04] MEDS: DILAUDID IV PRN ×2 (02:47→06:15)
[2016-11-04] MEDS: ZOSYN/NS 4.5GM/100ML 4.5 GM/100 ML VIAL IV SCH (06:15)
[2016-11-04 06:49] LABS: Alanine Aminotransferase 19 units/L (7-56); Albumin 2.5 g/dL (3.9-5); Albumin/Globulin Ratio 1.1 %; Alkaline Phosphatase 57 units/L (35-129); Anion Gap 16 mmol/L; BUN/Creatinine Ratio 34.28; Bilirubin,Total 0.4 mg/dL (0.1-1.2); Blood Urea Nitrogen 24 mg/dL (7-17); Carbon Dioxide 18 mmol/L (22-30); Chloride 99.8 mmol/L (98-107); Glucose 139 mg/dL (65-100); Phosphorous 2.4 mg/dL (2.5-4.5); Sodium 131 mmol/L (137-145); Total Protein 4.8 g/dL (6.3-8.2); Uric Acid 2.5 mg/dL (3.5-7.6)
[2016-11-04] MEDS ORDERED: KPHOS 30 MMOL in NACL 0.9% 500 ML 500 ML IV ONE ×2 (07:55→10:00)
[2016-11-04] MEDS ORDERED: K-DUR PO ONE (07:56)
--- NOTE | 2016-11-04 07:57 | Progress Note ---
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 Unknown precipitating factor. Sodium level has improved. (2) Hypokalemia Current Visit: No Status: Acute Plan to address problem: Replete K and Phos. (3) Encephalopathy acute Current Visit: Yes Status: Acute (4) Sepsis Current Visit: Yes Status: Acute Qualifiers: Sepsis type: S (5) Elevated troponin Current Visit: Yes Status: Acute Subjective Date of service: 11/04/16 Interval history: Patient is confused. Objective - Vital Signs Vital signs: Vital Signs - 12hr 11/03/16 11/03/16 11/04/16 20:00 22:00 00:00 Temperature 97.9 F 97.0 F L Pulse Rate [ 98 H 98 H 101 H Right] Respiratory 18 16 22 Rate Blood Pressure 90/54 102/58 [Right Arm] O2 Sat by Pulse 100 96 Oximetry 11/04/16 04:00 Temperature 97.4 F L Pulse Rate [ 96 H Right] Respiratory 22 Rate Blood Pressure 92/52 [Right Arm] O2 Sat by Pulse 97 Oximetry - General Appearance General appearance: well-developed, appears stated age, frail, other (no distress) EENT: PERRL, mucous membranes moist Neck: supple Respiratory: Present: Clear to Ascultation Cardiology: regular, S1S2, no murmurs Gastrointestinal: normoactive bowel sounds, no tenderness, no distended Integumentary: no rash Neurologic: confused, other (able to move all 4 extremities) Musculoskeletal: other (no edema) - Lab 11/05/16 09:00 11/05/16 07:44 Most recent lab results Calcium 7.0 mg/dL (8.4-10.2) L D 11/04/16 06:06 Phosphorus 2.4 mg/dL (2.5-4.5) L 11/04/16 06:06 Magnesium 2.0 mg/dL (1.7-2.3) 11/04/16 06:06
[2016-11-04] MEDS: DITROPAN XL PO SCH (09:10)
[2016-11-04] MEDS ORDERED: HALDOL IM ONE (10:23)
--- NOTE | 2016-11-04 11:29 | Progress Note ---
Subjective Date of service: 11/04/16 Interval history: Impression 1) Elevated troponin in setting of lactic acidosis 2) Suspect sepsis, she has h/o urinary incontinence, no acute cardiac disease 3) Altered MS related to hyponatremia, sepsis 4) HTN 5) Anemia Plan Conservative management Troponin decreasing as acidosis improves, will change to SQ heparin recommend echocardiogram in AM Objective Vital Signs Temp Pulse Resp BP Pulse Ox 11/04/16 08:35 98.2 F 118 H 16 94/52 97 11/04/16 04:00 97.4 F L 96 H 22 92/52 97 11/04/16 00:00 97.0 F L 101 H 22 102/58 96 11/03/16 22:00 98 H 16 11/03/16 20:00 97.9 F 98 H 18 90/54 100 11/03/16 18:52 98 H 16 83/54 11/03/16 17:39 95 11/03/16 17:34 108 H 80/52 11/03/16 12:05 99 11/03/16 12:00 98.2 F 110 H 18 104/82 100 - Physical Examination General: No Apparent Distress Cardiac: Positive: Reg Rate and Rhythm, S1/S2 Lungs: Positive: Normal Exam - Labs and Meds Cardiac Enzymes 11/04/16 Range/Units 06:06 AST 47 H (5-40) units/L Comprehensive Metabolic Panel 11/03/16 11/04/16 Range/Units 11:24 06:06 Sodium 131 L 131 L (137-145) mmol/L Potassium 3.0 L D (3.6-5.0) mmol/L Chloride 99.8 (98-107) mmol/L Carbon Dioxide 18 L (22-30) mmol/L BUN 24 H (7-17) mg/dL Creatinine 0.7 (0.7-1.2) mg/dL Glucose 139 H (65-100) mg/dL Calcium 7.0 L D (8.4-10.2) mg/dL AST 47 H (5-40) units/L ALT 19 (7-56) units/L Alkaline Phosphatase 57 (35-129) units/L Total Protein 4.8 L (6.3-8.2) g/dL Albumin 2.5 L (3.9-5) g/dL - Imaging and Cardiology EKG: report reviewed (EKG shows sinus tachycardia nonspecific ST-T wave abnormalities no significant change from 03/07/2012.)
[2016-11-04] MEDS: ZOSYN/NS 2.25 GM/50ML 2.25 GM/50 ML BAG IV SCH ×2 (14:00→18:37)
--- NOTE | 2016-11-04 19:50 | Progress Note ---
Assessment and Plan Assessment and plan: 1. Sepsis Tachycardic with significantly elevated WBC, and UA suggestive of UTI Blood and urine cultures obtained Continue IV broad-spectrum antibiotics until results available; IV fluids 2. Acute encephalopathy Secondary to sepsis/hyponatremia/delirium Treating underlying conditions Supportive care 3. Severe Hyponatremia Na+ 115 on admission, now in 130s Continue to closely monitor Nephrology following also 4. Hypophosphatemia Replacing and recheck 5. Elevated troponin Not consistent with non-STEMI per cardiology (nonspecific, in the setting of sepsis) IV heparin discontinued 6. Hypothyroidism TSH within normal limits, but FT4 elevated, consistent with iatrogenic hyperthyroidism, so will hold levothyroxine 7. Hyperglycemia Stress reaction, hemoglobin A1c<6 8. Malnutrition Consult dietitian for supplementation 9. DVT prophylaxis Lovenox History Interval history: mental status worsened, very confused, not following commands, restless daughter present, updated Hospitalist Physical - Constitutional Vitals: Temp Pulse Resp BP Pulse Ox 98.2 F 118 H 18 111/66 96 11/04/16 16:28 11/04/16 16:28 11/04/16 16:28 11/04/16 16:28 11/04/16 10:00 General appearance: Present: mild distress, cachectic - EENT Eyes: Present: PERRL, EOM intact. Absent: scleral icterus, conjunctival injection - Neck Neck: Present: supple. Absent: enlarged thyroid, masses or JVD - Respiratory Respiratory effort: normal Respiratory: bilateral: CTA, negative: rales, rhonchi, wheezing - Cardiovascular Rhythm: other (tachycardic) Heart Sounds: Present: S1 & S2. Absent: systolic murmur - Extremities Extremities: no ischemia - Abdominal General gastrointestinal: soft, non-tender, non-distended, normal bowel sounds - Psychiatric Psychiatric: other (confused, agitated) - Neurologic Neurologic: moves all extremities Results - Labs CBC & Chem 7: 11/02/16 21:20 11/04/16 06:06 Labs: Laboratory Last Values WBC 27.3 K/mm3 (4.5-11.0) H 11/02/16 21:20 RBC 3.87 M/mm3 (3.65-5.03) 11/02/16 21:20 Hgb 11.9 gm/dl (10.1-14.3) 11/02/16 21:20 Hct 34.8 % (30.3-42.9) 11/02/16 21:20 MCV 90 fl (79-97) 11/02/16 21:20 MCH 31 pg (28-32) 11/02/16 21:20 MCHC 34 % (30-34) 11/02/16 21:20 RDW 13.3 % (13.2-15.2) 11/02/16 21:20 Plt Count 539 K/mm3 (140-440) H 11/02/16 21:20 Add Manual Diff Complete 11/02/16 21:20 Total Counted 100 11/02/16 21:20 Seg Neutrophils % Slug Press Operator 11/02/16 21:20 Seg Neuts % (Manual) 89.0 % (40.0-70.0) H 11/02/16 21:20 Band Neutrophils % 0 % 11/02/16 21:20 Lymphocytes % (Manual) 7.0 % (13.4-35.0) L 11/02/16 21:20 Reactive Lymphs % (Man) 0 % 11/02/16 21:20 Monocytes % (Manual) 4.0 % (0.0-7.3) 11/02/16 21:20 Eosinophils % (Manual) 0 % (0.0-4.3) 11/02/16 21:20 Basophils % (Manual) 0 % (0.0-1.8) 11/02/16 21:20 Metamyelocytes % 0 % 11/02/16 21:20 Myelocytes % 0 % 11/02/16 21:20 Promyelocytes % 0 % 11/02/16 21:20 Blast Cells % 0 % 11/02/16 21:20 Nucleated RBC % Not Reportable 11/02/16 21:20 Seg Neutrophils # Man 24.3 K/mm3 (1.8-7.7) H 11/02/16 21:20 Band Neutrophils # 0.0 K/mm3 11/02/16 21:20 Lymphocytes # (Manual) 1.9 K/mm3 (1.2-5.4) 11/02/16 21:20 Abs React Lymphs (Man) 0.0 K/mm3 11/02/16 21:20 Monocytes # (Manual) 1.1 K/mm3 (0.0-0.8) H 11/02/16 21:20 Eosinophils # (Manual) 0.0 K/mm3 (0.0-0.4) 11/02/16 21:20 Basophils # (Manual) 0.0 K/mm3 (0.0-0.1) 11/02/16 21:20 Metamyelocytes # 0.0 K/mm3 11/02/16 21:20 Myelocytes # 0.0 K/mm3 11/02/16 21:20 Promyelocytes # 0.0 K/mm3 11/02/16 21:20 Blast Cells # 0.0 K/mm3 11/02/16 21:20 WBC Morphology Not Reportable 11/02/16 21:20 Hypersegmented Neuts Not Reportable 11/02/16 21:20 Hyposegmented Neuts Not Reportable 11/02/16 21:20 Hypogranular Neuts Not Reportable 11/02/16 21:20 Smudge Cells Not Reportable 11/02/16 21:20 Toxic Granulation Not Reportable 11/02/16 21:20 Toxic Vacuolation Not Reportable 11/02/16 21:20 Dohle Bodies Not Reportable 11/02/16 21:20 Pelger-Huet Anomaly Not Reportable 11/02/16 21:20 Shweta Rods Not Reportable 11/02/16 21:20 Platelet Estimate Appears increased 11/02/16 21:20 Clumped Platelets Not Reportable 11/02/16 21:20 Plt Clumps, EDTA Not Reportable 11/02/16 21:20 Large Platelets Not Reportable 11/02/16 21:20 Giant Platelets Not Reportable 11/02/16 21:20 Platelet Satelliting Not Reportable 11/02/16 21:20 Plt Morphology Comment Not Reportable 11/02/16 21:20 RBC Morphology Not Reportable 11/02/16 21:20 Dimorphic RBCs Not Reportable 11/02/16 21:20 Polychromasia Not Reportable 11/02/16 21:20 Hypochromasia Not Reportable 11/02/16 21:20 Poikilocytosis 1+ 11/02/16 21:20 Anisocytosis 1+ 11/02/16 21:20 Microcytosis Not Reportable 11/02/16 21:20 Macrocytosis Not Reportable 11/02/16 21:20 Spherocytes Not Reportable 11/02/16 21:20 Pappenheimer Bodies Not Reportable 11/02/16 21:20 Sickle Cells Not Reportable 11/02/16 21:20 Target Cells Not Reportable 11/02/16 21:20 Tear Drop Cells Not Reportable 11/02/16 21:20 Ovalocytes Not Reportable 11/02/16 21:20 Helmet Cells Not Reportable 11/02/16 21:20 Cook-[place] Bodies Not Reportable 11/02/16 21:20 [place] Rings Not Reportable 11/02/16 21:20 Chhaya Cells Not Reportable 11/02/16 21:20 Bite Cells Not Reportable 11/02/16 21:20 Crenated Cell Not Reportable 11/02/16 21:20 Elliptocytes Not Reportable 11/02/16 21:20 Acanthocytes (Spur) Not Reportable 11/02/16 21:20 Rouleaux Not Reportable 11/02/16 21:20 Hemoglobin C Crystals Not Reportable 11/02/16 21:20 Schistocytes Not Reportable 11/02/16 21:20 Malaria parasites Not Reportable 11/02/16 21:20 Renny Bodies Not Reportable 11/02/16 21:20 Hem Pathologist Commnt No 11/02/16 21:20 PT 13.5 Sec. (12.2-14.9) 11/02/16 21:20 INR 1.04 (0.87-1.13) 11/02/16 21:20 APTT 25.3 Sec. (24.2-36.6) 11/02/16 21:20 Thrombin Time 15.3 Sec. (15.1-19.6) 11/02/16 21:20 Heparin Anti-Xa Level 0.29 U.I./ml (0.3-0.7) L 11/04/16 14:14 Sodium 131 mmol/L (137-145) L 11/04/16 06:06 Potassium 3.0 mmol/L (3.6-5.0) L D 11/04/16 06:06 Chloride 99.8 mmol/L (98-107) 11/04/16 06:06 Carbon Dioxide 18 mmol/L (22-30) L 11/04/16 06:06 Anion Gap 16 mmol/L 11/04/16 06:06 BUN 24 mg/dL (7-17) H 11/04/16 06:06 Creatinine 0.7 mg/dL (0.7-1.2) 11/04/16 06:06 Estimated GFR > 60 ml/min 11/04/16 06:06 BUN/Creatinine Ratio 34.28 % 11/04/16 06:06 Glucose 139 mg/dL (65-100) H 11/04/16 06:06 POC Glucose 169 (70-105) H 11/04/16 17:06 Hemoglobin A1c 5.4 % (4-6) 11/03/16 04:40 Lactic Acid 2.3 mmol/L (0.7-2.0) H* 11/03/16 05:38 Uric Acid 2.5 mg/dL (3.5-7.6) L 11/04/16 06:06 Calcium 7.0 mg/dL (8.4-10.2) L D 11/04/16 06:06 Phosphorus 2.4 mg/dL (2.5-4.5) L 11/04/16 06:06 Magnesium 2.0 mg/dL (1.7-2.3) 11/04/16 06:06 Total Bilirubin 0.4 mg/dL (0.1-1.2) 11/04/16 06:06 AST 47 units/L (5-40) H 11/04/16 06:06 ALT 19 units/L (7-56) 11/04/16 06:06 Alkaline Phosphatase 57 units/L (35-129) 11/04/16 06:06 Total Creatine Kinase 234 units/L (30-135) H 11/02/16 21:20 CK-MB (CK-2) 17.8 ng/mL (0.0-4.0) H 11/02/16 21:20 CK-MB (CK-2) Rel Index 7.6 (0-4) H 11/02/16 21:20 Troponin T 0.252 ng/mL (0.00-0.029) H* D 11/04/16 00:23 Total Protein 4.8 g/dL (6.3-8.2) L 11/04/16 06:06 Albumin 2.5 g/dL (3.9-5) L 11/04/16 06:06 Albumin/Globulin Ratio 1.1 % 11/04/16 06:06 Triglycerides 115 mg/dL (2-149) 11/02/16 21:20 Cholesterol 142 mg/dL (50-199) 11/02/16 21:20 LDL Cholesterol Direct 67 mg/dL (50-130) 11/02/16 21:20 HDL Cholesterol 52 mg/dL (40-59) 11/02/16 21:20 Cholesterol/HDL Ratio 2.73 % 11/02/16 21:20 TSH 0.397 mlU/mL (0.270-4.200) 11/02/16 21:20 Free T4 2.02 ng/dL (0.76-1.46) H 11/02/16 21:20 Urine Color Red (Yellow) 11/03/16 11:45 Urine Turbidity Slightly-cloudy (Clear) 11/03/16 11:45 Urine pH 5.0 (5.0-7.0) 11/03/16 11:45 Ur Specific [place] 1.024 (1.003-1.030) 11/03/16 11:45 Urine Protein 100 mg/dl mg/dL (Negative) 11/03/16 11:45 Urine Glucose (UA) 50 mg/dL (Negative) 11/03/16 11:45 Urine Ketones Neg mg/dL (Negative) 11/03/16 11:45 Urine Blood Lg (Negative) 11/03/16 11:45 Urine Nitrite Neg (Negative) 11/03/16 11:45 Urine Bilirubin Neg (Negative) 11/03/16 11:45 Urine Urobilinogen < 2.0 mg/dL (<2.0) 11/03/16 11:45 Ur Leukocyte Esterase Sm (Negative) 11/03/16 11:45 Urine WBC (Auto) > 182.0 /HPF (0.0-6.0) H 11/03/16 11:45 Urine RBC (Auto) > 182.0 /HPF (0.0-6.0) 11/03/16 11:45 Urine Opiates Screen Presumptive negative 11/02/16 22:00 Urine Methadone Screen Presumptive negative 11/02/16 22:00 Ur Barbiturates Screen Presumptive negative 11/02/16 22:00 Ur Phencyclidine Scrn Presumptive negative 11/02/16 22:00 Ur Amphetamines Screen Presumptive negative 11/02/16 22:00 U Benzodiazepines Scrn Presumptive negative 11/02/16 22:00 Urine Cocaine Screen Presumptive negative 11/02/16 22:00 U Marijuana (THC) Screen Presumptive negative 11/02/16 22:00 Drugs of Abuse Note Disclamer 11/02/16 22:00 Blood Type B POSITIVE 11/02/16 22:05 Antibody Screen Negative 11/02/16 22:05
[2016-11-04] MEDS: LOVENOX SUB-Q SCH (21:50)
[2016-11-04] MEDS ORDERED: LOVENOX SUB-Q SCH (22:00)
[2016-11-05] MEDS: ZOSYN/NS 2.25 GM/50ML 2.25 GM/50 ML BAG IV SCH ×4 (00:30→19:07)
[2016-11-05] MEDS ORDERED: VANCOMYCIN VIAL 750 MG in NACL 0.9% 250ML 250 ML IV SCH (01:00)
[2016-11-05 08:43] LABS: Red Blood Count TNR M/mm3 (3.65-5.03); White Blood Count TNR K/mm3 (4.5-11.0)
[2016-11-05 08:44] LABS: Hematocrit TNR % (30.3-42.9); Hemoglobin TNR gm/dl (10.1-14.3); Mean Corpuscular HGB Conc TNR % (30-34); Mean Corpuscular Hemoglobin TNR pg (28-32); Mean Corpuscular Volume TNR fl (79-97); Mean Platelet Volume TNR fl (6-12); Platelet Count TNR K/mm3 (140-440); Red Cell Distribution Width TNR % (13.2-15.2)
[2016-11-05 08:45] LABS: Basophils % (Auto) TNR % (0.0-1.8); Eosinophils % (Auto) TNR % (0.0-4.3)
[2016-11-05 08:46] LABS: Diff Status TNR
[2016-11-05 08:52] LABS: Anion Gap 14 mmol/L; Blood Urea Nitrogen 7 mg/dL (7-17); Calcium 7.1 mg/dL (8.4-10.2); Carbon Dioxide 22 mmol/L (22-30); Chloride 104.5 mmol/L (98-107); Glucose 80 mg/dL (65-100); Magnesium 2.1 mg/dL (1.7-2.3); Phosphorous 2.3 mg/dL (2.5-4.5); Potassium 3.2 mmol/L (3.6-5.0); Sodium 137 mmol/L (137-145)
--- NOTE | 2016-11-05 08:59 | Progress Note ---
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 Sodium level has improved. Advised not to limit salt in the diet. (2) Hypotension Current Visit: Yes Status: Acute Qualifiers: Hypotension type: H Trimester: T Plan to address problem: Likely secondary to Sepsis and volume depletion. BP is improving with IV fluids. (3) Sepsis Current Visit: Yes Status: Acute Qualifiers: Sepsis type: S (4) Elevated troponin Current Visit: Yes Status: Acute (5) Encephalopathy acute Current Visit: Yes Status: Acute Subjective Date of service: 11/05/16 Interval history: Patient is feeling better. Her daughter is at the bedside. Objective - Vital Signs Vital signs: Vital Signs - 12hr 11/04/16 11/04/16 11/05/16 21:33 22:00 00:00 Temperature 97.3 F L Pulse Rate [ 107 H 108 H Right] Respiratory 18 20 Rate Blood Pressure 139/82 [Right Arm] O2 Sat by Pulse 97 96 Oximetry 11/05/16 08:46 Temperature 98.5 F Pulse Rate [ 100 H Right] Respiratory 18 Rate Blood Pressure 120/56 [Right Arm] O2 Sat by Pulse 97 Oximetry - General Appearance General appearance: well-developed, appears stated age, frail, other (no distress) EENT: ATNC, PERRL, mucous membranes moist, hearing intact Neck: supple Respiratory: Present: Clear to Ascultation Cardiology: regular, S1S2, no murmurs Gastrointestinal: normoactive bowel sounds, no tenderness, no distended Integumentary: no rash Neurologic: no focal deficit, no asterixis, CN 3-12 intact Musculoskeletal: other (no edema) Psychiatric: mood/affect appropriate, cooperative - Lab 11/05/16 09:00 11/05/16 07:44 Most recent lab results Calcium 7.1 mg/dL (8.4-10.2) L 11/05/16 07:44 Phosphorus 2.3 mg/dL (2.5-4.5) L 11/05/16 07:44 Magnesium 2.1 mg/dL (1.7-2.3) 11/05/16 07:44
[2016-11-05 09:18] LABS: Basophils % (Auto) 0.2 % (0.0-1.8); Eosinophils % (Auto) 0.5 % (0.0-4.3); Hemoglobin 8.2 gm/dl (10.1-14.3); Mean Corpuscular HGB Conc 35 % (30-34); Mean Corpuscular Hemoglobin 31 pg (28-32); Mean Corpuscular Volume 91 fl (79-97); Platelet Count 357 K/mm3 (140-440); Red Blood Count 2.61 M/mm3 (3.65-5.03); Red Cell Distribution Width 14.1 % (13.2-15.2); White Blood Count 6.3 K/mm3 (4.5-11.0)
[2016-11-05 09:42] LABS: Hematocrit 23.7 % (30.3-42.9)
[2016-11-05] MEDS: DITROPAN XL PO SCH (10:07)
[2016-11-05] MEDS ORDERED: KPHOS 30 MMOL in NACL 0.9% 500 ML 500 ML IV ONE (11:00)
--- NOTE | 2016-11-05 12:44 | Progress Note ---
Assessment and Plan Assessment and plan: Patient is a 76-year-old Samoan Speaking woman (daughter Jason andujar- declined language line) with a history of hypertension, hypothyroidism arthritis and anemia who presents with altered mental status due to a sodium level 115, WBC was 27.3 -Sepsis, most likely UTI, POA Tachycardic with significantly elevated WBC, and UA suggestive of UTI Blood and urine cultures obtained Continue IV broad-spectrum antibiotics until results available; IV fluids -Acute encephalopathy Secondary to sepsis/hyponatremia/delirium Treating underlying conditions Supportive care -Severe Hyponatremia Na+ 115 on admission, now stable Continue to closely monitor Nephrology following also -Hypophosphatemia monitor - Elevated troponin Not consistent with non-STEMI per cardiology (nonspecific, in the setting of sepsis) IV heparin discontinued - Hypothyroidism TSH within normal limits, but FT4 elevated, consistent with iatrogenic hyperthyroidism, so will hold levothyroxine - Hyperglycemia Stress reaction, hemoglobin A1c<6 - Suspected severe protein calorie malnutrition, POA, Consult dietitian for supplementation - DVT prophylaxis Lovenox Disposition: Echocardiogram today, cultures to be finalized later today possibly discharge tomorrow if both negative, ordered am labs History Interval history: Patient seen and examined. Follow up on altered mental status which still present. Overnight uneventful. No cp, sob, n/v or severe headaches. Imaging, old records, testing, labs, nursing notes reviewed. Plan discussed with patient. Hospitalist Physical - Physical exam Narrative exam: GEN: Cachectic BMI 16.7 NAD, AWAKE, ALERT, ORIENTATED 2 HEENT: NCAT, PERRL, EOMI, OP CLEAR NECK: SUPPLE, NO THYROMEGALY, NO JVD, NO LAD CVS: Regular tachycardia, NORMAL S1S2 LUNGS/CHEST: CTA B, NORMAL CHEST EXPANSION B, GOOD AIR ENTRY B ABD: SOFT NTND, GBS, NO REBOUND OR GUARDING NEURO: CN 2-12 GROSSLY INTACT, NO new FOCAL DEFICITS PSY: CALM - Constitutional Vitals: Temp Pulse Resp BP Pulse Ox 98.5 F 100 H 18 120/56 97 11/05/16 08:46 11/05/16 08:46 11/05/16 08:46 11/05/16 08:46 11/05/16 08:46 General appearance: Present: cachectic Results - Labs CBC & Chem 7: 11/05/16 09:00 11/05/16 07:44 Labs: Laboratory Last Values WBC 6.3 K/mm3 (4.5-11.0) 11/05/16 09:00 RBC 2.61 M/mm3 (3.65-5.03) L 11/05/16 09:00 Hgb 8.2 gm/dl (10.1-14.3) L D 11/05/16 09:00 Hct 23.7 % (30.3-42.9) L D 11/05/16 09:00 MCV 91 fl (79-97) 11/05/16 09:00 MCH 31 pg (28-32) 11/05/16 09:00 MCHC 35 % (30-34) H 11/05/16 09:00 RDW 14.1 % (13.2-15.2) 11/05/16 09:00 Plt Count 357 K/mm3 (140-440) 11/05/16 09:00 Lymph % (Auto) 23.6 % (13.4-35.0) 11/05/16 09:00 [place] % (Auto) 10.5 % (0.0-7.3) H 11/05/16 09:00 Eos % (Auto) 0.5 % (0.0-4.3) 11/05/16 09:00 Baso % (Auto) 0.2 % (0.0-1.8) 11/05/16 09:00 Lymph # 1.5 K/mm3 (1.2-5.4) 11/05/16 09:00 [place] # 0.7 K/mm3 (0.0-0.8) 11/05/16 09:00 Eos # 0.0 K/mm3 (0.0-0.4) 11/05/16 09:00 Baso # 0.0 K/mm3 (0.0-0.1) 11/05/16 09:00 Add Manual Diff TNR 11/05/16 07:44 Total Counted 100 11/02/16 21:20 Seg Neutrophils % 65.2 % (40.0-70.0) 11/05/16 09:00 Seg Neuts % (Manual) 89.0 % (40.0-70.0) H 11/02/16 21:20 Band Neutrophils % 0 % 11/02/16 21:20 Lymphocytes % (Manual) 7.0 % (13.4-35.0) L 11/02/16 21:20 Reactive Lymphs % (Man) 0 % 11/02/16 21:20 Monocytes % (Manual) 4.0 % (0.0-7.3) 11/02/16 21:20 Eosinophils % (Manual) 0 % (0.0-4.3) 11/02/16 21:20 Basophils % (Manual) 0 % (0.0-1.8) 11/02/16 21:20 Metamyelocytes % 0 % 11/02/16 21:20 Myelocytes % 0 % 11/02/16 21:20 Promyelocytes % 0 % 11/02/16 21:20 Blast Cells % 0 % 11/02/16 21:20 Nucleated RBC % Not Reportable 11/02/16 21:20 Seg Neutrophils # 4.1 K/mm3 (1.8-7.7) 11/05/16 09:00 Seg Neutrophils # Man 24.3 K/mm3 (1.8-7.7) H 11/02/16 21:20 Band Neutrophils # 0.0 K/mm3 11/02/16 21:20 Lymphocytes # (Manual) 1.9 K/mm3 (1.2-5.4) 11/02/16 21:20 Abs React Lymphs (Man) 0.0 K/mm3 11/02/16 21:20 Monocytes # (Manual) 1.1 K/mm3 (0.0-0.8) H 11/02/16 21:20 Eosinophils # (Manual) 0.0 K/mm3 (0.0-0.4) 11/02/16 21:20 Basophils # (Manual) 0.0 K/mm3 (0.0-0.1) 11/02/16 21:20 Metamyelocytes # 0.0 K/mm3 11/02/16 21:20 Myelocytes # 0.0 K/mm3 11/02/16 21:20 Promyelocytes # 0.0 K/mm3 11/02/16 21:20 Blast Cells # 0.0 K/mm3 11/02/16 21:20 WBC Morphology Not Reportable 11/02/16 21:20 Hypersegmented Neuts Not Reportable 11/02/16 21:20 Hyposegmented Neuts Not Reportable 11/02/16 21:20 Hypogranular Neuts Not Reportable 11/02/16 21:20 Smudge Cells Not Reportable 11/02/16 21:20 Toxic Granulation Not Reportable 11/02/16 21:20 Toxic Vacuolation Not Reportable 11/02/16 21:20 Dohle Bodies Not Reportable 11/02/16 21:20 Pelger-Huet Anomaly Not Reportable 11/02/16 21:20 Shweta Rods Not Reportable 11/02/16 21:20 Platelet Estimate Appears increased 11/02/16 21:20 Clumped Platelets Not Reportable 11/02/16 21:20 Plt Clumps, EDTA Not Reportable 11/02/16 21:20 Large Platelets Not Reportable 11/02/16 21:20 Giant Platelets Not Reportable 11/02/16 21:20 Platelet Satelliting Not Reportable 11/02/16 21:20 Plt Morphology Comment Not Reportable 11/02/16 21:20 RBC Morphology Not Reportable 11/02/16 21:20 Dimorphic RBCs Not Reportable 11/02/16 21:20 Polychromasia Not Reportable 11/02/16 21:20 Hypochromasia Not Reportable 11/02/16 21:20 Poikilocytosis 1+ 11/02/16 21:20 Anisocytosis 1+ 11/02/16 21:20 Microcytosis Not Reportable 11/02/16 21:20 Macrocytosis Not Reportable 11/02/16 21:20 Spherocytes Not Reportable 11/02/16 21:20 Pappenheimer Bodies Not Reportable 11/02/16 21:20 Sickle Cells Not Reportable 11/02/16 21:20 Target Cells Not Reportable 11/02/16 21:20 Tear Drop Cells Not Reportable 11/02/16 21:20 Ovalocytes Not Reportable 11/02/16 21:20 Helmet Cells Not Reportable 11/02/16 21:20 Cook-[place] Bodies Not Reportable 11/02/16 21:20 [place] Rings Not Reportable 11/02/16 21:20 Chhaya Cells Not Reportable 11/02/16 21:20 Bite Cells Not Reportable 11/02/16 21:20 Crenated Cell Not Reportable 11/02/16 21:20 Elliptocytes Not Reportable 11/02/16 21:20 Acanthocytes (Spur) Not Reportable 11/02/16 21:20 Rouleaux Not Reportable 11/02/16 21:20 Hemoglobin C Crystals Not Reportable 11/02/16 21:20 Schistocytes Not Reportable 11/02/16 21:20 Malaria parasites Not Reportable 11/02/16 21:20 Renny Bodies Not Reportable 11/02/16 21:20 Hem Pathologist Commnt No 11/02/16 21:20 PT 13.5 Sec. (12.2-14.9) 11/02/16 21:20 INR 1.04 (0.87-1.13) 11/02/16 21:20 APTT 25.3 Sec. (24.2-36.6) 11/02/16 21:20 Thrombin Time 15.3 Sec. (15.1-19.6) 11/02/16 21:20 Heparin Anti-Xa Level 0.29 U.I./ml (0.3-0.7) L 11/04/16 14:14 Sodium 137 mmol/L (137-145) 11/05/16 07:44 Potassium 3.2 mmol/L (3.6-5.0) L 11/05/16 07:44 Chloride 104.5 mmol/L (98-107) 11/05/16 07:44 Carbon Dioxide 22 mmol/L (22-30) 11/05/16 07:44 Anion Gap 14 mmol/L 11/05/16 07:44 BUN 7 mg/dL (7-17) 11/05/16 07:44 Creatinine 0.4 mg/dL (0.7-1.2) L 11/05/16 07:44 Estimated GFR > 60 ml/min 11/05/16 07:44 BUN/Creatinine Ratio 17.50 % 11/05/16 07:44 Glucose 80 mg/dL (65-100) 11/05/16 07:44 POC Glucose 116 (70-105) H 11/05/16 11:35 Hemoglobin A1c 5.4 % (4-6) 11/03/16 04:40 Lactic Acid 2.3 mmol/L (0.7-2.0) H* 11/03/16 05:38 Uric Acid 2.5 mg/dL (3.5-7.6) L 11/04/16 06:06 Calcium 7.1 mg/dL (8.4-10.2) L 11/05/16 07:44 Phosphorus 2.3 mg/dL (2.5-4.5) L 11/05/16 07:44 Magnesium 2.1 mg/dL (1.7-2.3) 11/05/16 07:44 Total Bilirubin 0.4 mg/dL (0.1-1.2) 11/04/16 06:06 AST 47 units/L (5-40) H 11/04/16 06:06 ALT 19 units/L (7-56) 11/04/16 06:06 Alkaline Phosphatase 57 units/L (35-129) 11/04/16 06:06 Total Creatine Kinase 234 units/L (30-135) H 11/02/16 21:20 CK-MB (CK-2) 17.8 ng/mL (0.0-4.0) H 11/02/16 21:20 CK-MB (CK-2) Rel Index 7.6 (0-4) H 11/02/16 21:20 Troponin T 0.252 ng/mL (0.00-0.029) H* D 11/04/16 00:23 Total Protein 4.8 g/dL (6.3-8.2) L 11/04/16 06:06 Albumin 2.5 g/dL (3.9-5) L 11/04/16 06:06 Albumin/Globulin Ratio 1.1 % 11/04/16 06:06 Triglycerides 115 mg/dL (2-149) 11/02/16 21:20 Cholesterol 142 mg/dL (50-199) 11/02/16 21:20 LDL Cholesterol Direct 67 mg/dL (50-130) 11/02/16 21:20 HDL Cholesterol 52 mg/dL (40-59) 11/02/16 21:20 Cholesterol/HDL Ratio 2.73 % 11/02/16 21:20 TSH 0.397 mlU/mL (0.270-4.200) 11/02/16 21:20 Free T4 2.02 ng/dL (0.76-1.46) H 11/02/16 21:20 Urine Color Red (Yellow) 11/03/16 11:45 Urine Turbidity Slightly-cloudy (Clear) 11/03/16 11:45 Urine pH 5.0 (5.0-7.0) 11/03/16 11:45 Ur Specific [place] 1.024 (1.003-1.030) 11/03/16 11:45 Urine Protein 100 mg/dl mg/dL (Negative) 11/03/16 11:45 Urine Glucose (UA) 50 mg/dL (Negative) 11/03/16 11:45 Urine Ketones Neg mg/dL (Negative) 11/03/16 11:45 Urine Blood Lg (Negative) 11/03/16 11:45 Urine Nitrite Neg (Negative) 11/03/16 11:45 Urine Bilirubin Neg (Negative) 11/03/16 11:45 Urine Urobilinogen < 2.0 mg/dL (<2.0) 11/03/16 11:45 Ur Leukocyte Esterase Sm (Negative) 11/03/16 11:45 Urine WBC (Auto) > 182.0 /HPF (0.0-6.0) H 11/03/16 11:45 Urine RBC (Auto) > 182.0 /HPF (0.0-6.0) 11/03/16 11:45 Urine Opiates Screen Presumptive negative 11/02/16 22:00 Urine Methadone Screen Presumptive negative 11/02/16 22:00 Ur Barbiturates Screen Presumptive negative 11/02/16 22:00 Ur Phencyclidine Scrn Presumptive negative 11/02/16 22:00 Ur Amphetamines Screen Presumptive negative 11/02/16 22:00 U Benzodiazepines Scrn Presumptive negative 11/02/16 22:00 Urine Cocaine Screen Presumptive negative 11/02/16 22:00 U Marijuana (THC) Screen Presumptive negative 11/02/16 22:00 Drugs of Abuse Note Disclamer 11/02/16 22:00 Blood Type B POSITIVE 11/02/16 22:05 Antibody Screen Negative 11/02/16 22:05
--- NOTE | 2016-11-05 19:59 | Progress Note ---
Assessment and Plan - Patient Problems (1) Cardiac enzymes elevated Current Visit: Yes Status: Acute Plan to address problem: 76-year-old woman who presented with sepsis and severe metabolic abnormalities notably a sodium of 115. In the setting of severe metabolic derangement, cardiac enzymes were also abnormal with nonspecific elevation of the CK-MB and troponin levels. We'll review echocardiogram for left ventricular function assessment. Otherwise , pursue a conservative cardiac approach. Subjective Date of service: 11/05/16 Interval history: 76-year-old woman who presented with sepsis and severe metabolic abnormalities notably a sodium of 115. In the setting of severe metabolic derangement, cardiac enzymes were also abnormal with nonspecific elevation of the CK-MB and troponin levels. Objective Vital Signs Temp Pulse Resp BP Pulse Ox 11/05/16 08:46 98.5 F 100 H 18 120/56 97 11/05/16 00:00 97.3 F L 108 H 20 139/82 96 11/04/16 22:00 107 H 18 11/04/16 21:33 97 - Physical Examination General: No Apparent Distress Neck: Positive: neck supple, trachea midline Cardiac: Positive: Reg Rate and Rhythm Lungs: Positive: Decreased Breath Sounds Neuro: Positive: Weakness Abdomen: Positive: Soft Skin: Positive: Clear Extremities: Absent: edema - Labs and Meds CBC 11/05/16 11/05/16 Range/Units 07:44 09:00 WBC TNR 6.3 RBC TNR 2.61 L Hgb TNR 8.2 L D Hct TNR 23.7 L D Plt Count TNR 357 Lymph # TNR 1.5 [place] # TNR 0.7 Eos # TNR 0.0 Baso # TNR 0.0 Comprehensive Metabolic Panel 11/05/16 Range/Units 07:44 Sodium 137 (137-145) mmol/L Potassium 3.2 L (3.6-5.0) mmol/L Chloride 104.5 (98-107) mmol/L Carbon Dioxide 22 (22-30) mmol/L BUN 7 (7-17) mg/dL Creatinine 0.4 L (0.7-1.2) mg/dL Glucose 80 (65-100) mg/dL Calcium 7.1 L (8.4-10.2) mg/dL - Imaging and Cardiology EKG: report reviewed (EKG shows sinus tachycardia nonspecific ST-T wave abnormalities no significant change from 03/07/2012.)
[2016-11-05] MEDS: LOVENOX SUB-Q SCH (23:07)
[2016-11-06] MEDS: ZOSYN/NS 2.25 GM/50ML 2.25 GM/50 ML BAG IV SCH ×4 (01:25→17:53)
[2016-11-06] MEDS: NACL 0.45% 1000 ML 1,000 ML IV SCH (02:16)
[2016-11-06 07:13] LABS: Hematocrit 21.7 % (30.3-42.9); Hemoglobin 7.4 gm/dl (10.1-14.3); Mean Corpuscular HGB Conc 34 % (30-34); Mean Corpuscular Hemoglobin 32 pg (28-32); Mean Corpuscular Volume 93 fl (79-97); Platelet Count 386 K/mm3 (140-440); Red Blood Count 2.34 M/mm3 (3.65-5.03); Red Cell Distribution Width 14.7 % (13.2-15.2); White Blood Count 4.7 K/mm3 (4.5-11.0)
[2016-11-06 07:34] LABS: Anion Gap 13 mmol/L; Blood Urea Nitrogen 6 mg/dL (7-17); Carbon Dioxide 23 mmol/L (22-30); Chloride 100.4 mmol/L (98-107); Glucose 87 mg/dL (65-100); Phosphorous 2.2 mg/dL (2.5-4.5); Potassium 3.1 mmol/L (3.6-5.0); Sodium 133 mmol/L (137-145)
--- NOTE | 2016-11-06 09:01 | Progress Note ---
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 Sodium level has improved. Advised not to limit salt in the diet. (2) Hypotension Current Visit: Yes Status: Acute Qualifiers: Hypotension type: H Trimester: T Plan to address problem: Likely secondary to Sepsis and volume depletion. BP is better. Will stop IV fluids. (3) Hypokalemia Current Visit: No Status: Acute Plan to address problem: Replete K and Phos. (4) Sepsis Current Visit: Yes Status: Acute Qualifiers: Sepsis type: S (5) Elevated troponin Current Visit: Yes Status: Acute Plan to address problem: Followed by Bowling Floor Manager. (6) Encephalopathy acute Current Visit: Yes Status: Acute Subjective Date of service: 11/06/16 Interval history: Patient is doing ok. Her daughter is at the bedside. Objective - Vital Signs Vital signs: Vital Signs - 12hr 11/05/16 11/06/16 22:00 08:59 Temperature 97.1 F L Respiratory 20 Rate Blood Pressure 123/42 [Right Arm] O2 Sat by Pulse 98 Oximetry - General Appearance General appearance: well-developed, appears stated age, other (no distress) EENT: PERRL, mucous membranes moist, vision intact Neck: supple Respiratory: Present: Clear to Ascultation Cardiology: regular, S1S2, no murmurs Gastrointestinal: normoactive bowel sounds, no tenderness, no distended Integumentary: no rash Neurologic: no focal deficit, no asterixis Musculoskeletal: other (no edema) Psychiatric: cooperative - Lab 11/06/16 05:49 11/06/16 05:49 Most recent lab results Calcium 7.0 mg/dL (8.4-10.2) L 11/06/16 05:49 Phosphorus 2.2 mg/dL (2.5-4.5) L 11/06/16 05:49 Magnesium 2.1 mg/dL (1.7-2.3) 11/05/16 07:44
[2016-11-06] MEDS ORDERED: KPHOS 45 MMOL in NACL 0.9% 500 ML 500 ML IV ONE (10:00)
[2016-11-06] MEDS: DITROPAN XL PO SCH (10:35)
[2016-11-06] MEDS: VANCOMYCIN/NS 500 MG/100 ML 500 MG/100 ML BAG IV SCH (13:08)
[2016-11-06] MEDS: K-PHOS NEUTRAL PO SCH ×2 (14:15→22:18)
--- NOTE | 2016-11-06 16:27 | Progress Note ---
Assessment and Plan Sepsis Altered mental status Hyponatremia Anemia, acute drop in HCT Abnormal cardiac enzymes likely due to severe metabolic abnormalities Echocardiogram done shows a decreased left ventricular function, ejection fraction 25-30%. Subjective Date of service: 11/06/16 Interval history: Patient resting in bed comfortably. No cardiac events reported. Objective Vital Signs Temp Pulse Resp BP Pulse Ox 11/06/16 10:00 98.2 F 104 H 20 123/64 98 11/06/16 08:59 98 11/05/16 22:00 97.1 F L 20 123/42 - Physical Examination General: No Apparent Distress Neck: Positive: neck supple, trachea midline Neuro: Positive: Weakness Abdomen: Positive: Soft Skin: Positive: Clear Extremities: Absent: edema - Labs and Meds CBC 11/06/16 Range/Units 05:49 WBC 4.7 (4.5-11.0) K/mm3 RBC 2.34 L (3.65-5.03) M/mm3 Hgb 7.4 L (10.1-14.3) gm/dl Hct 21.7 L (30.3-42.9) % Plt Count 386 (140-440) K/mm3 Comprehensive Metabolic Panel 11/06/16 Range/Units 05:49 Sodium 133 L (137-145) mmol/L Potassium 3.1 L (3.6-5.0) mmol/L Chloride 100.4 (98-107) mmol/L Carbon Dioxide 23 (22-30) mmol/L BUN 6 L (7-17) mg/dL Creatinine 0.4 L (0.7-1.2) mg/dL Glucose 87 (65-100) mg/dL Calcium 7.0 L (8.4-10.2) mg/dL - Imaging and Cardiology EKG: report reviewed (EKG shows sinus tachycardia nonspecific ST-T wave abnormalities no significant change from 03/07/2012.)
[2016-11-06] MEDS: LOVENOX SUB-Q SCH (22:20)
[2016-11-06] MEDS: TYLENOL PO PRN (22:23)
--- NOTE | 2016-11-06 23:53 | Progress Note ---
Assessment and Plan Patient is a 76-year-old Syriac Speaking woman (daughter Jason andujar- declined language line) with a history of hypertension, hypothyroidism arthritis and anemia who presents with altered mental status due to a sodium level 115, WBC was 27.3 -Sepsis, most likely UTI, POA Tachycardic with significantly elevated WBC, and UA suggestive of UTI Blood and urine cultures obtained Continue IV broad-spectrum antibiotics until results available; IV fluids -Acute encephalopathy Secondary to sepsis/hyponatremia/delirium Treating underlying conditions Supportive care -Severe Hyponatremia Na+ 115 on admission, now stable Continue to closely monitor Nephrology following also -Hypophosphatemia monitor - Elevated troponin Not consistent with non-STEMI per cardiology (nonspecific, in the setting of sepsis) IV heparin discontinued - Hypothyroidism TSH within normal limits, but FT4 elevated, consistent with iatrogenic hyperthyroidism, so will hold levothyroxine - Hyperglycemia Stress reaction, hemoglobin A1c<6 - Suspected severe protein calorie malnutrition, POA, Consult dietitian for supplementation - DVT prophylaxis Lovenox Disposition: Follow-up with Echocardiogram report, cultures to be finalized later today possibly discharge tomorrow if both negative, ordered am labs Subjective Date of service: 11/06/16 Principal diagnosis: sepsis, encephalopathy, Interval history: Laying quietly in bed. Awake. No new complaints Objective - Constitutional Vitals: Vital Signs - 12hr 11/06/16 11/06/16 20:00 22:23 Temperature 98.4 F Pulse Rate [ 73 Right] Respiratory 20 Rate Blood Pressure 105/58 [Right Arm] General appearance: Present: no acute distress, well-nourished - EENT Eyes: PERRL, EOM intact Ears: bilateral: normal - Neck Neck: supple, normal ROM - Respiratory Respiratory effort: normal Respiratory: bilateral: CTA - Breasts Breasts: normal - Cardiovascular Rhythm: regular Heart Sounds: Present: S1 & S2. Absent: gallop, rub Extremities: pulses intact, No edema, normal color, Full ROM - Gastrointestinal General gastrointestinal: Present: soft, non-tender, non-distended, normal bowel sounds - Genitourinary Female genitourinary: normal - Integumentary Integumentary: clear, warm, dry - Musculoskeletal Musculoskeletal: 1, strength equal bilaterally - Neurologic Neurologic: moves all extremities - Psychiatric Psychiatric: memory intact, appropriate mood/affect, intact judgment & insight - Labs CBC & Chem 7: 11/06/16 05:49 11/06/16 05:49 Labs: Abnormal lab results 11/06/16 11/06/16 11/06/16 Range/Units 00:15 05:49 05:49 RBC 2.34 L (3.65-5.03) M/mm3 Hgb 7.4 L (10.1-14.3) gm/dl Hct 21.7 L (30.3-42.9) % Sodium 133 L (137-145) mmol/L Potassium 3.1 L (3.6-5.0) mmol/L BUN 6 L (7-17) mg/dL Creatinine 0.4 L (0.7-1.2) mg/dL POC Glucose 123 H (70-105) Calcium 7.0 L (8.4-10.2) mg/dL Phosphorus 2.2 L (2.5-4.5) mg/dL 11/06/16 11/06/16 11/06/16 Range/Units 11:46 18:12 21:13 RBC (3.65-5.03) M/mm3 Hgb (10.1-14.3) gm/dl Hct (30.3-42.9) % Sodium (137-145) mmol/L Potassium (3.6-5.0) mmol/L BUN (7-17) mg/dL Creatinine (0.7-1.2) mg/dL POC Glucose 124 H 160 H 117 H (70-105) Calcium (8.4-10.2) mg/dL Phosphorus (2.5-4.5) mg/dL
[2016-11-07] MEDS: ZOSYN/NS 2.25 GM/50ML 2.25 GM/50 ML BAG IV SCH ×4 (00:42→17:57)
[2016-11-07 05:25] LABS: Blood Urea Nitrogen 5 mg/dL (7-17); Calcium 7.1 mg/dL (8.4-10.2); Carbon Dioxide 25 mmol/L (22-30); Glucose 97 mg/dL (65-100); Phosphorous 3.3 mg/dL (2.5-4.5)
[2016-11-07 05:26] LABS: Anion Gap 13 mmol/L; Chloride 106.3 mmol/L (98-107); Potassium 3.7 mmol/L (3.6-5.0); Sodium 141 mmol/L (137-145)
--- NOTE | 2016-11-07 07:21 | Progress Note ---
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 Sodium level has improved. Advised not to limit salt in the diet. (2) Hypotension Current Visit: Yes Status: Acute Qualifiers: Hypotension type: H Trimester: T Plan to address problem: Likely secondary to Sepsis and volume depletion. BP is better. Will stop IV fluids. (3) Hypokalemia Current Visit: No Status: Acute Plan to address problem: Replete K and Phos. (4) Sepsis Current Visit: Yes Status: Acute Qualifiers: Sepsis type: S (5) Elevated troponin Current Visit: Yes Status: Acute Plan to address problem: Followed by University Administrator. (6) Encephalopathy acute Current Visit: Yes Status: Acute Plan to address problem: Improved. (7) CHF (congestive heart failure) Current Visit: Yes Status: Chronic Qualifiers: Congestive heart failure type: C Congestive heart failure chronicity: C Subjective Date of service: 11/07/16 Principal diagnosis: sepsis, encephalopathy, Interval history: Patient is doing much better today. Her daughter is at the bedside. Objective - Vital Signs Vital signs: Vital Signs - 12hr 11/06/16 11/06/16 11/07/16 20:00 22:23 01:01 Temperature 98.4 F 99.3 F Pulse Rate [ 73 73 Right] Respiratory 20 Rate Blood Pressure 105/58 108/56 [Right Arm] 11/07/16 04:00 Temperature Pulse Rate [ 80 Right] Respiratory Rate Blood Pressure 112/64 [Right Arm] - General Appearance General appearance: well-developed, appears stated age, frail, other (Sitting in the chair and eating breakfast.) EENT: ATNC, PERRL, mucous membranes moist, hearing intact, vision intact Neck: no carotid bruit, supple Respiratory: Present: Clear to Ascultation Cardiology: regular, S1S2, no murmurs Gastrointestinal: normoactive bowel sounds, no tenderness, no distended Integumentary: no rash, warm and dry Neurologic: no focal deficit Musculoskeletal: other (no edema) Psychiatric: cooperative - Lab 11/06/16 05:49 11/07/16 04:36 Most recent lab results Calcium 7.1 mg/dL (8.4-10.2) L 11/07/16 04:36 Phosphorus 3.3 mg/dL (2.5-4.5) D 11/07/16 04:36 Magnesium 2.1 mg/dL (1.7-2.3) 11/05/16 07:44
[2016-11-07] MEDS: K-PHOS NEUTRAL PO SCH ×2 (07:49→14:15)
[2016-11-07] MEDS: TYLENOL PO PRN (07:54)
[2016-11-07] MEDS: DITROPAN XL PO SCH (09:07)
[2016-11-07 10:06] VITALS: BP 104/59
--- NOTE | 2016-11-07 12:40 | Progress Note ---
Assessment and Plan Sepsis Altered mental status Hyponatremia Anemia, acute drop in HCT Abnormal cardiac enzymes likely due to severe metabolic abnormalities Cardiomyopathy, unknown duration Echocardiogram done shows a decreased left ventricular function, ejection fraction 25-30%. We will recommend medical therapy for her cardiomyopathy to include afterload reduction and beta kerri therapy as her BP allows. Once discharged, follow up with [facility] for outpatient cardiac evaluation. Subjective Date of service: 11/07/16 Principal diagnosis: sepsis, encephalopathy, Interval history: Patient resting in bed comfortably. No distress noted. Objective Vital Signs Temp Pulse Resp Resp BP Pulse Ox 11/07/16 10:00 18 11/07/16 08:00 98.9 F 95 H 18 104/59 96 11/07/16 04:00 80 112/64 11/07/16 01:01 99.3 F 73 108/56 11/06/16 22:23 20 11/06/16 20:00 98.4 F 73 105/58 - Physical Examination General: No Apparent Distress HEENT: Positive: PERRL Neck: Positive: trachea midline Cardiac: Positive: Reg Rate and Rhythm Neuro: Positive: Weakness Abdomen: Positive: Soft Skin: Positive: Clear Extremities: Absent: edema - Labs and Meds Comprehensive Metabolic Panel 11/07/16 Range/Units 04:36 Sodium 141 D (137-145) mmol/L Potassium 3.7 (3.6-5.0) mmol/L Chloride 106.3 (98-107) mmol/L Carbon Dioxide 25 (22-30) mmol/L BUN 5 L (7-17) mg/dL Creatinine 0.5 L (0.7-1.2) mg/dL Glucose 97 (65-100) mg/dL Calcium 7.1 L (8.4-10.2) mg/dL - Imaging and Cardiology EKG: report reviewed (EKG shows sinus tachycardia nonspecific ST-T wave abnormalities no significant change from 03/07/2012.)
--- NOTE | 2016-11-07 12:57 | Discharge Summary ---
Providers - Providers Date of Admission: 11/03/16 03:28 Date of discharge: 11/07/16 Attending physician: ANKIT ODOM 11/03/16 05:11 Consult to Physician [CONS] Routine Consulting Provider: JACQUELINE MURO Reason For Exam: Hyponatremia Place consult to:: DR. MURO Notified:: DR. MURO Time called:: 07:20 11/03/16 05:26 Consult to Physician [CONS] Routine Consulting Provider: GREGORIO HAYES Reason For Exam: NSTEMI Place consult to:: DR. GREGORIO HAYES Notified:: [facility] Phone number called:: [phone] Was contact made?: Yes If yes, spoke with:: EVANGELINA Time called:: 08:14 Comment:: SONU NOTIFIED 11/03/16 08:37 Speech Therapy Evaluation and Treat [CONS] Routine Reason For Exam: evaluate swallowing Primary care physician: SUPPORT MANAGER Hospitalization Condition: Serious Pertinent studies: CT of head showed no acute intracranial abnormality. Chest x-ray showed no acute cardiopulmonary findings. Echo showed left ventricular ejection fraction of 25-30% Procedures: None Disposition: DISCHARGED TO HOME OR SELFCARE Core Measure Documentation - Palliative Care Palliative Care/ Comfort Measures: Not Applicable - Core Measures Any of the following diagnoses?: none Exam - Constitutional Vitals: Temp Pulse Resp BP Pulse Ox 98.9 F 95 H 18 104/59 96 11/07/16 08:00 11/07/16 08:00 11/07/16 10:00 11/07/16 08:00 11/07/16 08:00 General appearance: Present: no acute distress, well-nourished - EENT Eyes: Present: PERRL ENT: hearing intact, clear oral mucosa - Neck Neck: Present: supple, normal ROM - Respiratory Respiratory effort: normal Respiratory: bilateral: CTA - Cardiovascular Heart Sounds: Present: S1 & S2. Absent: rub, click - Extremities Extremities: pulses symmetrical, No edema Peripheral Pulses: within normal limits - Abdominal General gastrointestinal: Present: soft, non-tender, non-distended, normal bowel sounds Female genitourinary: Present: normal - Integumentary Integumentary: Present: clear, warm, dry - Musculoskeletal Musculoskeletal: gait normal, strength equal bilaterally - Psychiatric Psychiatric: appropriate mood/affect, intact judgment & insight - Neurologic Neurologic: CNII-XII intact, moves all extremities Plan Activity: advance as tolerated Diet: low fat, low cholesterol, low salt Follow up with: PRIMARY CARE, [Primary Care Provider] - 3-5 Days Prescriptions: Aspirin EC [Aspirin Enteric Coated TAB] 81 mg PO QDAY #30 tablet AtorvaSTATin [Lipitor] 40 mg PO QHS #30 tablet Levothyroxine [Synthroid] 25 mcg PO QAM #30 tablet
[2016-11-07] MEDS: VANCOMYCIN/NS 500 MG/100 ML 500 MG/100 ML BAG IV SCH (13:01)
== END 2016-11-07 19:32 | disposition home or self-care (01) | DRG 871 ==
LOC: ED 21:14 → 3A 11-03 03:28 → CC2 11-05 15:02
PROVIDERS: ADMIT Internal Medicine; ATTEND Internal Medicine
DX: A41.9 Sepsis, unspecified organism (principal); G93.41 Metabolic encephalopathy; E87.1 Hypo-osmolality and hyponatremia; N39.0 Urinary tract infection, site not specified; E87.2 Acidosis; E46 Unspecified protein-calorie malnutrition; I42.9 Cardiomyopathy, unspecified; M81.0 Age-related osteoporosis without current pathological fracture; I10 Essential (primary) hypertension; E03.9 Hypothyroidism, unspecified; D64.9 Anemia, unspecified; M19.90 Unspecified osteoarthritis, unspecified site; K21.9 Gastro-esophageal reflux disease without esophagitis; R73.9 Hyperglycemia, unspecified; E05.80 Other thyrotoxicosis without thyrotoxic crisis or storm; E83.39 Other disorders of phosphorus metabolism; Z79.899 Other long term (current) drug therapy; Z90.49 Acquired absence of other specified parts of digestive tract; Z82.49 Family history of ischemic heart disease and other diseases of the circulatory system; Z68.25 Body mass index [BMI] 25.0-25.9, adult
CPT/HCPCS: 36415; 70450; 71010; 80048; 80053; 80061; 80307; 81001; 82140; 82550; 82553; 82962; 83036; 83735; 84100; 84295; 84439; 84443; 84484; 84550; 85007; 85025; 85027; 85520; 85610; 85670; 85730; 86850; 86900; 86901; 87040; 87086; 90686; 90732; 93005; 93010; 93306; 94760; 96361; 96365; 96366; 96375; A9270-GY; G8996-GN; G8997-GN; J1170; J1630; J1644; J1650; J2405; J2543; J3370; J7030; J7040; J7042; J7050

== ENCOUNTER 2018-08-01 21:53 | Inpatient (IN) | payer MEDICARE ==
[2018-08-01 23:12] LABS: Hematocrit 39.5 % (30.3-42.9); Hemoglobin 13.6 gm/dl (10.1-14.3); Mean Corpuscular HGB Conc 35 % (30-34); Mean Corpuscular Hemoglobin 31 pg (28-32); Mean Corpuscular Volume 89 fl (79-97); Platelet Count 369 K/mm3 (140-440); Red Blood Count 4.42 M/mm3 (3.65-5.03); Red Cell Distribution Width 12.5 % (13.2-15.2)
[2018-08-01] MEDS ORDERED: NACL 0.9% 500 ML 500 ML IV ONE (23:23)
--- NOTE | 2018-08-01 23:29 | Emergency Department Report ---
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 unspecified UTI (urinary tract infection) Qualifiers: Urinary tract infection type: acute cystitis Hematuria presence: with hematuria Qualified Code(s): N30.01 - Acute cystitis with hematuria Sepsis Qualifiers: Sepsis type: sepsis due to unspecified organism Qualified Code(s): A41.9 - Sepsis, unspecified organism Disposition: 09 OP ADMIT IP TO THIS HOSP Is pt being admited?: Yes Does the pt Need Aspirin: No Condition: Critical Time of Disposition: 02:32
[2018-08-01 23:32] LABS: BUN/Creatinine Ratio 22; Blood Urea Nitrogen 11 mg/dL (7-17); Calcium 9.4 mg/dL (8.4-10.2); Hemolysis Index 2
[2018-08-01] MEDS ORDERED: ATIVAN ONE (23:52)
[2018-08-01] MEDS ORDERED: ATIVAN IV ONE (23:56)
[2018-08-02 00:02] LABS: Albumin 5.2 g/dL (3.9-5); Bilirubin,Direct 0.2 mg/dL (0-0.2)
[2018-08-02] MEDS ORDERED: NACL 0.9% 1000 ML 1,000 ML IV ONE (00:06)
--- NOTE | 2018-08-02 00:49 | Cat Scan Report ---
FINAL REPORT PROCEDURE: CT HEAD/BRAIN WO CON TECHNIQUE: Computerized tomography of the head was performed without contrast material. HISTORY: Altered Mental Status COMPARISON: Prior CT scan of the brain 11/02/2016 FINDINGS: Brain: There is no evidence of intracranial hemorrhage. No parenchymal hemorrhage is seen. No mass lesions or mass effect is identified. No abnormal extra-axial fluid collections or masses are seen. Nonspecific mineralization of the basal ganglia are visualized bilaterally. There is some decreased density seen in the periventricular white matter without mass effect. This i s fairly symmetric and does not exhibit any mass effect consistent with gliosis probably on the basis of microvascular disease or white matter changes of aging. Ventricles: The ventricles, sulcal pattern and fissures are prominent consistent with atrophy. Bones: No evidence of acute fracture. Paranasal sinuses: Visualized portions are clear. Mastoid air cells: clear IMPRESSION: There is evidence of mild atrophy and gliosis. Nonspecific mineralization the basal ganglia and denta te nucleus of the cerebellar hemispheres visualized. These findings are stable. Visualized. No acute intracranial abnormalities are identified
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
[2018-08-02 01:44] LABS: Bilirubin,Urine NEG (Negative); Blood,Urine MOD (Negative); Color,Urine Straw (Yellow); Mucus,Urine FEW /HPF; Urobilinogen,Urine < 2.0 mg/dL (<2.0)
[2018-08-02] MEDS ORDERED: ROCEPHIN/NS 1 GM/50 ML 1 GM/50 ML BAG IV ONE (02:33)
[2018-08-02 03:27] LABS: Anisocytosis Few; Band Neutrophils # (Manual) 0.1 K/mm3; Basophils % (Manual) 0 % (0.0-1.8); Eosinophils % (Manual) 0 % (0.0-4.3); Hypochromasia Few; Total Cells Counted 100
--- NOTE | 2018-08-02 03:37 | XRay Report ---
FINAL REPORT PROCEDURE: XR CHEST 1V AP TECHNIQUE: Chest radiograph anteroposterior view. CPT 13757 HISTORY: ams COMPARISON: No prior studies are available for comparison. FINDINGS: Heart: Normal. Mediastinum/Vessels: Normal. Lungs/Pleural space: Normal. Bony thorax: No acute osseous abnormality. Life support devices: None. IMPRESSION: No acute cardiopulmonary abnormality.
[2018-08-02 04:03] LABS: Creatine Kinase MB 5.9 ng/mL (0.0-4.0)
[2018-08-02 04:37] LABS: BUN/Creatinine Ratio 20; Blood Urea Nitrogen 12 mg/dL (7-17); Calcium 9.6 mg/dL (8.4-10.2); Hemolysis Index 5
[2018-08-02] MEDS ORDERED: NACL 3% 500 ML IV SCH (05:00)
[2018-08-02] MEDS ORDERED: MYLICON PO PRN (05:52)
[2018-08-02] MEDS ORDERED: ZOSYN/NS 3.375GM/50ML 3.375 GM/50 ML BAG IV SCH (06:00)
[2018-08-02] MEDS ORDERED: KCL 10MEQ/100ML 10 MEQ/100 ML BAG IV SCH (06:00)
[2018-08-02] MEDS ORDERED: KCL 10MEQ/100ML 10 MEQ/100 ML BAG IV ONE (06:11)
--- NOTE | 2018-08-02 06:37 | History and Physical Report ---
CHIEF COMPLAINT: Nausea, vomiting and diarrhea. Other complaint include change in mental status. HISTORY OF PRESENT ILLNESS: The patient is a 77-year-old female brought by the family because of nausea, vomiting and diarrhea with loss of appetite. Also, the patient was noted by family to be confused and the patient had a seizure attack while in the Emergency Room. There is no history of fever, no history of chills. No history of chest pain or shortness of breath. The patient was presented for evaluation. PAST MEDICAL HISTORY: Pertinent for hypertension, congestive heart failure with ejection fraction of 25-30%, following cardiomyopathy. The patient has also past medical history of hypertension, arthritis, hyperlipidemia, osteoporosis and thyroid disorder. PAST SURGICAL HISTORY: Pertinent for cholecystectomy. FAMILY HISTORY: Noncontributory. SOCIAL HISTORY: The patient does not smoke, does not drink alcohol and does not use illicit drugs. MEDICATIONS: The patient is on Fosamax 70 mg by mouth every week, ferrous sulfate 325 mg by mouth daily, metoprolol succinate 25 mg by mouth daily, Benadryl 50 mg by mouth daily as needed for allergic reaction. ALLERGIES: There are no known drug allergies. REVIEW OF SYSTEMS: CONSTITUTIONAL: There is no fever, no chills, no diaphoresis. HEENT: There is no headache or sore throat. CARDIOVASCULAR SYSTEM: There is no chest pain or orthopnea. RESPIRATORY SYSTEM: There is no shortness of breath or cough. GASTROINTESTINAL SYSTEM: There is nausea, vomiting, diarrhea, and loss of appetite. There is no history of constipation or abdominal pain. NEUROLOGICAL SYSTEM: Change in mental status noted. MUSCULOSKELETAL SYSTEM: There is no joint pain or swelling. DERMATOLOGICAL SYSTEM: There is no skin rash or itching. GENITOURINARY SYSTEM: There is no dysuria, hematuria or flank pain. Rest of system review is normal. PHYSICAL EXAMINATION: GENERAL: At the time of exam, the patient was found to be alert, disoriented to person, place and time, not in acute distress. VITAL SIGNS: At the initial time of presentation showed temperature of 97.5, pulse of 63, respiration 14, blood pressure 187/95, O2 sat of 97% on room air. HEENT: Showed pupils to be equal, round, reactive to light and accommodation. Extraocular muscles are intact. NECK: Supple with no JVD or carotid bruit. CARDIOVASCULAR SYSTEM: Showed normal first and second heart sounds with no gallops or murmurs. RESPIRATORY SYSTEM: Show good air entry on both sides of the lungs with no abnormal breath sounds. GASTROINTESTINAL SYSTEM: Show abdomen to be full, soft, nontender with no organomegaly or rigidity. NEUROLOGICAL: Shows the patient to be confused with no focal deficit. MUSCULOSKELETAL SYSTEM: Show no joint swelling or tenderness. DERMATOLOGICAL SYSTEM: Show no skin rash. GENITOURINARY SYSTEM: Showing no costovertebral angle tenderness. PERTINENT LABORATORY AND IMAGING STUDIES: The patient had CT of the head and brain done without contrast that shows evidence of mild atrophy and gliosis and nonspecific mineralization in the basal ganglia and dentate nucleus of the cerebellar hemisphere. Findings according to the radiologist are stable. There is no acute intracranial abnormality identified. The patient also has CT of the abdomen and pelvis done without contrast and shows no acute abnormality seen. There is evidence of prior cholecystectomy and prior granulomatous disease, mild lumbar scoliosis was also found. The patient had chest x-ray done that shows no acute cardiopulmonary lesion. The patient's lab results shows CBC with elevated white count, normal hemoglobin and normal hematocrit with CBC differential showing elevated segmented neutrophil count of 77%. The patient's chemistry showed low sodium level of 110 with normal potassium, low chloride level of 66.7 and the patient's blood glucose level was 199. Lactic acid level was high with a value of 11.5. Rest of chemistry was unremarkable. The patient's troponin level came back unremarkable. Urinalysis shows straw colored, hazy urine with high pH of 8 with negative urine nitrites, negative urine leukocyte esterase, normal urine wbc's and no bacteria. DIAGNOSES: 1. Altered mental status. 2. Hyponatremia. 3. Seizure disorder secondary to most likely hyponatremia. PLAN OF ACTION: 1. The patient will be admitted to telemetry. 2. The patient will have Nephrology consult with Dr. Zapata for management of symptomatic hyponatremia. 3. The patient will be on hypertonic saline solution at 25 mL an hour until sodium level is 125. 4. The patient will have sodium level checked 2 hours after starting hypertonic saline, and then level will be checked every 4 hours. 5. The patient will be on p.r.n. medications like Tylenol 650 mg by mouth every 4 hours as needed for fever and headache and the patient will be on IV Zofran 4 mg every 8 hours as needed for nausea and vomiting. 6. The patient will have serial lactic acid check every 3 hours x 2 more levels. 7. The patient will be on her home medication as shown in the medication reconciliation section and will be on oxygen by nasal cannula at 2 liters per minute. 8. The patient will be on IV Zosyn 3.375 grams q. 8 hours as empiric treatment for possible sepsis. 9. The patient's diet will be 2 g sodium diet. JOB# [id number] OCN/NTS MTDD
[2018-08-02] MEDS ORDERED: CARAFATE ONE (06:40)
[2018-08-02] MEDS: CARAFATE PO SCH ×3 (06:52→21:53)
[2018-08-02] MEDS ORDERED: TYLENOL PO ONE (07:56)
[2018-08-02] MEDS ORDERED: TYLENOL ONE (08:04)
[2018-08-02] MEDS ORDERED: TYLENOL PR PRN (08:10)
[2018-08-02] MEDS ORDERED: CONIVAPTAN IV ONE ×2 (11:50)
--- NOTE | 2018-08-02 11:54 | Consultation ---
History of Present Illness - Reason for Consult Consult date: 08/02/18 hyponatremia, hypokalemia Requesting physician: BRITTANY LAND - History of Present Illness admitted secondary to ams, found to have Na level of 112, thus renal consultation MD Complaint: altered mental status, confusion -: Sudden Severity: severe Consistency of Symptoms: getting worse Associated Symptoms: loss of appetite, nausea/vomiting. denies: chest pain, cough, diaphoresis, fever/chills, headaches, malaise, rash, seizure, shortness of breath, syncope, weakness, foul smelling urine, difficulty walking, diarrhea, incontinence ROS: Stated complaint: VOMITTING AND SPEAKING NONSENSE Other details as noted in HPI Constitutional: denies: chills, fever Eyes: denies: eye pain, eye discharge, vision change ENT: denies: ear pain, throat pain Respiratory: denies: cough, shortness of breath, wheezing Cardiovascular: denies: chest pain, palpitations Endocrine: no symptoms reported Gastrointestinal: abdominal pain, nausea, vomiting. denies: diarrhea Genitourinary: denies: urgency, dysuria, discharge Musculoskeletal: denies: back pain, joint swelling, arthralgia Skin: denies: rash, lesions Neurological: denies: headache, weakness, paresthesias Psychiatric: denies: anxiety, depression Hematological/Lymphatic: denies: easy bleeding, easy bruising - Past Medical History Previous Medical History?: Yes Hx Hypertension: Yes (cardiomyopathy of 25-30%) Hx Congestive Heart Failure: Yes Hx Arthritis: Yes Additional medical history: Thyroid, Osteoporosis, Cardiomypathy, hyperlipidemia - Surgical History Past Surgical History?: Yes Hx Cholecystectomy: Yes - Family History Family history: no significant - Social History Smoking Status: Never Smoker Substance Use Type: None Medications and Allergies Allergies Allergy/AdvReac Type Severity Reaction Status Date / Time No Known Allergies Allergy Verified 01/16/16 22:10 Home Medications Medication Instructions Recorded Confirmed Last Taken Type RX: Alendronate Sodium [Fosamax] 70 mg PO QWEEK 01/16/16 11/23/16 Unknown History RX: Ferrous Gluconate [Fergon 325 325 mg PO QDAY 01/16/16 11/23/16 Unknown History MG tab] RX: Famotidine [Pepcid] 20 mg PO BID #60 tablet 01/19/16 11/23/16 Unknown Rx RX: AtorvaSTATin [Lipitor] 40 mg PO QHS #30 tablet 11/07/16 11/23/16 Unknown Rx RX: Metoprolol Xl [Metoprolol 25 mg PO DAILY 11/23/16 11/26/16 11/23/16 10:00 History SUCCINATE ER TAB] RX: diphenhydrAMINE [Benadryl CAP] 50 mg PO DAILY PRN 11/23/16 11/23/16 Unknown History RX: Pantoprazole [Protonix TAB] 40 mg PO QDAY #30 tablet 11/25/16 Unknown Rx RX: Simethicone [Gas-X] 80 mg PO Q6H PRN #20 tab.chew 11/25/16 Unknown Rx RX: Clopidogrel [Plavix] 75 mg PO QDAY #30 tablet 11/26/16 Unknown Rx Sucralfate [Carafate] 1 gm PO Q6HR 14 Days udc 11/26/16 Unknown Rx Active Meds: Active Medications Acetaminophen (Tylenol) 650 mg HI Q6H PRN PRN Reason: Pain, Mild (1-3) Last Admin: 08/02/18 10:28 Dose: 650 mg Documented by: Alendronate Sodium (Fosamax) 70 mg PO Florian THAO Atorvastatin Calcium (Lipitor) 40 mg PO QHS THAO Clopidogrel Bisulfate (Plavix) 75 mg PO QDAY THAO Famotidine (Pepcid) 20 mg PO BID THAO Ferrous Gluconate (Fergon) 324 mg PO QDAY THAO Heparin Sodium (Porcine) (Heparin) 5,000 unit SUB-Q Q12HR THAO Piperacillin Sod/Tazobactam Sod (Zosyn/Ns 3.375gm/50ml) 3.375 gm in 50 mls @ 10 0 mls/hr IV Q8HR THAO; Protocol Last Admin: 08/02/18 06:34 Dose: 100 mls/hr Documented by: Sodium Chloride (Nacl 3%) 500 mls @ 25 mls/hr IV DIRECT THAO Stop: 08/03/18 00:59 Last Admin: 08/02/18 05:21 Dose: 25 mls/hr Documented by: Conivaptan/Dextrose (Vaprisol) 20 mg in 100 mls @ 200 mls/hr IV ONCE ONE Stop: 08/02/18 12:19 Conivaptan/Dextrose (Vaprisol) 20 mg in 100 mls @ 4.15 mls/hr IV ONCE ONE Stop: 08/03/18 11:55 Metoprolol Succinate (Toprol Xl) 25 mg PO DAILY THAO Pantoprazole Sodium (Protonix) 40 mg PO QDAY THAO Simethicone (Mylicon) 80 mg PO Q6H PRN PRN Reason: bloating Sucralfate (Carafate) 1 gm PO Q6HR THAO Last Admin: 08/02/18 06:52 Dose: 1 gm Documented by: Exam - Vital Signs Vital signs: Vital Signs Temp Pulse Resp BP Pulse Ox 97.5 F L 63 14 187/95 97 08/01/18 22:05 08/01/18 22:05 08/01/18 22:05 08/01/18 22:05 08/01/18 22:05 - Physical Exam Narrative exam: - General Limitations: Language Barrier, Altered Mental Status, Other General appearance: alert, in no apparent distress - Head Head exam: Present: atraumatic, normocephalic - Eye Eye exam: Present: normal appearance, PERRL Pupils: Present: normal accommodation - ENT ENT exam: Present: mucous membranes dry - Neck Neck exam: Present: normal inspection - Respiratory Respiratory exam: Present: normal lung sounds bilaterally. Absent: respiratory distress - Cardiovascular Cardiovascular Exam: Present: regular rate, normal rhythm. Absent: systolic murmur, diastolic murmur, rubs, gallop - GI/Abdominal GI/Abdominal exam: Present: soft, normal bowel sounds - Extremities Exam Extremities exam: Present: normal inspection - Back Exam Back exam: Present: normal inspection - Neurological Exam Neurological exam: Present: alert, altered (A&0X2) - Psychiatric Psychiatric exam: Present: normal affect, normal mood - Skin Skin exam: Present: warm, dry, intact, normal color. Absent: rash Results - Lab Results 08/01/18 22:54 08/02/18 04:13 Most recent lab results Calcium 9.6 mg/dL (8.4-10.2) 08/02/18 04:13 Assessment and Plan Impression: * Hyponatremia * AMS * sepsis * hypothyroidism * lactic acidosis * volume depletion * SIADH Plan: * add vaprisol for low sodium if need * stop 3% saline * lactic acid levels noted * replete volume as needed, aggressive ivfs with NS * strict i/os * daily lytes * serial na levels * replete k and mag prn * follow up ua
[2018-08-02] MEDS ORDERED: MAGNESIUM SULFATE 2GM/50ML 2 GM/50 ML BAG IV ONE (11:57)
[2018-08-02] MEDS ORDERED: NACL 0.9% 1000 ML 1,000 ML with KCL 20 MEQ IV SCH (12:00)
[2018-08-02] MEDS: FERGON PO SCH (13:06)
[2018-08-02] MEDS: HEPARIN SUB-Q SCH ×2 (13:06→21:52)
[2018-08-02] MEDS: PEPCID PO SCH ×2 (13:06→21:52)
[2018-08-02] MEDS: PROTONIX PO SCH (13:07)
[2018-08-02] MEDS: PLAVIX PO SCH (13:07)
[2018-08-02] MEDS: TOPROL XL PO SCH (13:07)
[2018-08-02 14:30] LABS: BUN/Creatinine Ratio 22; Blood Urea Nitrogen 11 mg/dL (7-17); Calcium 8.4 mg/dL (8.4-10.2); Hemolysis Index 15
[2018-08-02] MEDS: NS/KCL 20MEQ 20 MEQ/1,000 ML BAG IV SCH (15:06)
--- NOTE | 2018-08-02 18:19 | Event Note ---
Date: 08/02/18 Patient reevaluuated Cont HD Check Na levels
[2018-08-02] MEDS: ZOSYN/NS 3.375GM/50ML 3.375 GM/50 ML BAG IV SCH (21:52)
[2018-08-03] MEDS: CARAFATE PO SCH ×4 (00:25→17:17)
[2018-08-03] MEDS: NS/KCL 20MEQ 20 MEQ/1,000 ML BAG IV SCH ×2 (03:48→13:25)
[2018-08-03] MEDS: ZOSYN/NS 3.375GM/50ML 3.375 GM/50 ML BAG IV SCH ×3 (06:05→22:21)
[2018-08-03] MEDS ORDERED: FOSAMAX PO SCH (07:00)
[2018-08-03 07:38] LABS: BUN/Creatinine Ratio 23; Blood Urea Nitrogen 14 mg/dL (7-17); Calcium 7.8 mg/dL (8.4-10.2); Hemolysis Index 11
[2018-08-03] MEDS: HEPARIN SUB-Q SCH ×2 (11:58→22:26)
[2018-08-03] MEDS: PEPCID PO SCH ×2 (11:59→22:21)
[2018-08-03] MEDS: PROTONIX PO SCH (11:59)
--- NOTE | 2018-08-03 11:59 | Progress Note ---
Assessment and Plan Impression: * Hyponatremia * AMS * sepsis * hypothyroidism * lactic acidosis * volume depletion * SIADH Plan: * NA is better with NS * stopped 3% saline * lactic acid levels noted * replete volume as needed, continue aggressive ivfs with NS * strict i/os * daily lytes * replete k and mag prn * follow up ua Subjective Date of service: 08/03/18 Principal diagnosis: hyponatremia Interval history: resting well in bed today, no acute events Objective - Exam Narrative Exam: - General Limitations: Language Barrier, Altered Mental Status, Other General appearance: alert, in no apparent distress - Head Head exam: Present: atraumatic, normocephalic - Eye Eye exam: Present: normal appearance, PERRL Pupils: Present: normal accommodation - ENT ENT exam: Present: mucous membranes dry - Neck Neck exam: Present: normal inspection - Respiratory Respiratory exam: Present: normal lung sounds bilaterally. Absent: respiratory distress - Cardiovascular Cardiovascular Exam: Present: regular rate, normal rhythm. Absent: systolic murmur, diastolic murmur, rubs, gallop - GI/Abdominal GI/Abdominal exam: Present: soft, normal bowel sounds - Extremities Exam Extremities exam: Present: normal inspection - Back Exam Back exam: Present: normal inspection - Neurological Exam Neurological exam: Present: alert, altered (A&0X2) - Psychiatric Psychiatric exam: Present: normal affect, normal mood - Skin Skin exam: Present: warm, dry, intact, normal color. Absent: rash - Vital Signs Vital signs: Vital Signs - 12hr 08/03/18 08/03/18 08/03/18 00:00 00:10 00:20 Temperature 97.7 F Pulse Rate 69 72 71 Pulse Rate [ 90 From Monitor] Respiratory 13 15 16 Rate Blood Pressure 105/57 110/62 105/57 O2 Sat by Pulse 100 100 100 Oximetry 08/03/18 08/03/18 08/03/18 00:30 00:40 00:50 Temperature Pulse Rate 71 67 70 Pulse Rate [ From Monitor] Respiratory 18 14 16 Rate Blood Pressure 105/57 105/57 110/62 O2 Sat by Pulse 100 100 100 Oximetry 08/03/18 08/03/18 08/03/18 01:00 01:10 01:20 Temperature Pulse Rate 69 75 82 Pulse Rate [ From Monitor] Respiratory 16 15 13 Rate Blood Pressure 110/62 109/61 109/61 O2 Sat by Pulse 100 100 100 Oximetry 08/03/18 08/03/18 08/03/18 01:30 01:40 01:50 Temperature Pulse Rate 77 74 74 Pulse Rate [ From Monitor] Respiratory 17 16 15 Rate Blood Pressure 109/61 109/61 109/61 O2 Sat by Pulse 100 100 100 Oximetry 08/03/18 08/03/18 08/03/18 02:00 02:10 02:20 Temperature Pulse Rate 75 77 78 Pulse Rate [ From Monitor] Respiratory 17 15 16 Rate Blood Pressure 104/53 104/53 104/53 O2 Sat by Pulse 100 100 100 Oximetry 08/03/18 08/03/18 08/03/18 02:30 02:40 02:50 Temperature Pulse Rate 78 74 76 Pulse Rate [ From Monitor] Respiratory 16 13 14 Rate Blood Pressure 104/53 104/53 104/53 O2 Sat by Pulse 100 100 100 Oximetry 08/03/18 08/03/18 08/03/18 03:00 03:10 03:20 Temperature Pulse Rate 75 75 74 Pulse Rate [ From Monitor] Respiratory 15 14 14 Rate Blood Pressure 111/58 111/58 111/58 O2 Sat by Pulse 100 100 Oximetry 08/03/18 08/03/18 08/03/18 03:30 03:40 03:50 Temperature Pulse Rate 78 74 74 Pulse Rate [ From Monitor] Respiratory 14 12 11 L Rate Blood Pressure 111/58 111/58 111/58 O2 Sat by Pulse 100 100 100 Oximetry 08/03/18 08/03/18 08/03/18 04:00 04:10 04:20 Temperature 98.3 F Pulse Rate 72 74 75 Pulse Rate [ 72 From Monitor] Respiratory 14 17 16 Rate Blood Pressure 102/56 102/56 102/56 O2 Sat by Pulse 100 100 100 Oximetry 08/03/18 08/03/18 08/03/18 04:30 04:40 04:50 Temperature Pulse Rate 73 72 72 Pulse Rate [ From Monitor] Respiratory 13 13 13 Rate Blood Pressure 102/56 102/56 102/56 O2 Sat by Pulse 100 100 100 Oximetry 08/03/18 08/03/18 08/03/18 05:00 05:10 05:20 Temperature Pulse Rate 71 71 73 Pulse Rate [ From Monitor] Respiratory 14 14 15 Rate Blood Pressure 104/56 104/56 104/56 O2 Sat by Pulse 100 100 Oximetry 08/03/18 08/03/18 08/03/18 05:30 05:40 05:50 Temperature Pulse Rate 69 72 72 Pulse Rate [ From Monitor] Respiratory 14 12 12 Rate Blood Pressure 104/56 104/56 104/56 O2 Sat by Pulse 100 100 100 Oximetry 08/03/18 08/03/18 08/03/18 06:00 06:10 06:20 Temperature Pulse Rate 71 71 70 Pulse Rate [ From Monitor] Respiratory 18 15 12 Rate Blood Pressure 111/61 111/61 O2 Sat by Pulse 100 100 Oximetry 08/03/18 06:30 Temperature Pulse Rate 73 Pulse Rate [ From Monitor] Respiratory 15 Rate Blood Pressure 111/61 O2 Sat by Pulse 100 Oximetry - Lab 08/01/18 22:54 08/03/18 05:38 Most recent lab results Calcium 7.8 mg/dL (8.4-10.2) L 08/03/18 05:38 Magnesium 2.10 mg/dL (1.7-2.3) 08/02/18 13:30 Medications & Allergies - Medications Allergies/Adverse Reactions: Allergies No Known Allergies Allergy (Verified 01/16/16 22:10) Home Medications: Home Medications Medication Instructions Recorded Confirmed Last Taken Type Alendronate Sodium [Fosamax] 70 mg PO QWEEK 01/16/16 11/23/16 Unknown History Ferrous Gluconate [Fergon 325 MG 325 mg PO QDAY 01/16/16 11/23/16 Unknown History tab] Famotidine [Pepcid] 20 mg PO BID #60 tablet 01/19/16 11/23/16 Unknown Rx AtorvaSTATin [Lipitor] 40 mg PO QHS #30 tablet 11/07/16 11/23/16 Unknown Rx Metoprolol Xl [Metoprolol 25 mg PO DAILY 11/23/16 11/26/16 11/23/16 10:00 History SUCCINATE ER TAB] diphenhydrAMINE [Benadryl CAP] 50 mg PO DAILY PRN 11/23/16 11/23/16 Unknown History Pantoprazole [Protonix TAB] 40 mg PO QDAY #30 tablet 11/25/16 Unknown Rx Simethicone [Gas-X] 80 mg PO Q6H PRN #20 tab.chew 11/25/16 Unknown Rx Clopidogrel [Plavix] 75 mg PO QDAY #30 tablet 11/26/16 Unknown Rx Sucralfate [Carafate] 1 gm PO Q6HR 14 Days udc 11/26/16 Unknown Rx Active Medications: Generic Name Dose Route Start Last Admin Trade Name Freq PRN Reason Stop Dose Admin Acetaminophen 650 mg 08/02/18 08:10 08/02/18 10:28 Tylenol [place] 650 mg Q6H PRN Administration Pain, Mild (1-3) Atorvastatin Calcium 40 mg 08/02/18 22:00 08/02/18 21:52 Lipitor PO 40 mg QHS THAO Administration Clopidogrel Bisulfate 75 mg 08/02/18 10:00 08/02/18 13:07 Plavix PO Not Given QDAY THOA Famotidine 20 mg 08/02/18 10:00 08/02/18 21:52 Pepcid PO 20 mg BID THAO Administration Ferrous Gluconate 324 mg 08/02/18 10:00 08/02/18 13:06 Fergon PO Not Given QDAY THAO Heparin Sodium (Porcine) 5,000 unit 08/02/18 10:00 08/02/18 21:52 Heparin SUB-Q 5,000 unit Q12HR THAO Administration Potassium Chloride/Sodium Chloride 20 meq in 1,000 mls @ 125 mls/hr 08/02/18 13:00 08/03/18 03:48 Ns/Kcl 20meq IV 125 mls/hr DIRECT THAO Administration Piperacillin Sod/Tazobactam Sod 3.375 gm in 50 mls @ 100 mls/hr 08/02/18 22:00 08/03/18 06:42 Zosyn/Ns 3.375gm/50ml IV Infused Q8HR [facility] Infusion Protocol Metoprolol Succinate 25 mg 08/02/18 10:00 08/02/18 13:07 Toprol Xl PO Not Given DAILY THAO Pantoprazole Sodium 40 mg 08/02/18 10:00 08/02/18 13:07 Protonix PO Not Given QDAY [facility] Simethicone 80 mg 08/02/18 05:52 Mylicon PO Q6H PRN bloating Sucralfate 1 gm 08/02/18 06:00 08/03/18 05:41 Carafate PO 1 gm Q6HR THAO Administration
[2018-08-03] MEDS: TOPROL XL PO SCH (12:00)
[2018-08-03] MEDS: PLAVIX PO SCH (12:00)
[2018-08-03] MEDS: FERGON PO SCH (12:01)
--- NOTE | 2018-08-03 19:22 | Progress Note ---
Assessment and Plan - Patient Problems (1) Hyponatremia Current Visit: Yes Status: Acute Plan to address problem: Improving NS for now Improved to 132 (2) ESRD (end stage renal disease) Current Visit: Yes Status: Chronic Plan to address problem: Cont HD (3) Hypothyroidism Current Visit: Yes Status: Chronic Qualifiers: Hypothyroidism type: acquired Qualified Code(s): E03.9 - Hypothyroidism, unspecified Plan to address problem: Cont Synthyroid (4) Sepsis Current Visit: Yes Status: Acute Plan to address problem: Cont Abx (5) DVT prophylaxis Current Visit: Yes Status: Acute Plan to address problem: On Heparin Subjective Date of service: 08/03/17 Principal diagnosis: hyponatremia Interval history: Sx Better Objective - Constitutional Vitals: Vital Signs - 12hr 08/03/18 08/03/18 08/03/18 08:00 09:00 09:10 Temperature Pulse Rate 80 Pulse Rate [ 72 From Monitor] Respiratory 20 Rate Blood Pressure 112/57 O2 Sat by Pulse 100 100 Oximetry 08/03/18 08/03/18 08/03/18 09:20 09:30 09:40 Temperature Pulse Rate 82 77 81 Pulse Rate [ From Monitor] Respiratory 25 H 15 13 Rate Blood Pressure O2 Sat by Pulse 100 100 100 Oximetry 08/03/18 08/03/18 08/03/18 09:50 10:00 10:10 Temperature Pulse Rate 86 79 79 Pulse Rate [ From Monitor] Respiratory 21 16 15 Rate Blood Pressure 107/60 O2 Sat by Pulse 100 100 100 Oximetry 08/03/18 08/03/18 08/03/18 10:20 10:30 10:40 Temperature Pulse Rate 76 83 75 Pulse Rate [ From Monitor] Respiratory 15 11 L 13 Rate Blood Pressure O2 Sat by Pulse 100 100 100 Oximetry 08/03/18 08/03/18 08/03/18 10:50 11:00 11:10 Temperature Pulse Rate 75 76 75 Pulse Rate [ From Monitor] Respiratory 15 16 13 Rate Blood Pressure 106/59 O2 Sat by Pulse 100 100 Oximetry 08/03/18 08/03/18 08/03/18 11:20 11:30 11:40 Temperature Pulse Rate 71 82 82 Pulse Rate [ From Monitor] Respiratory 15 13 21 Rate Blood Pressure O2 Sat by Pulse 100 100 100 Oximetry 08/03/18 08/03/18 08/03/18 11:50 12:00 12:10 Temperature 99 F Pulse Rate 79 77 77 Pulse Rate [ From Monitor] Respiratory 17 17 25 H Rate Blood Pressure 107/60 O2 Sat by Pulse 100 100 100 Oximetry 08/03/18 08/03/18 08/03/18 12:20 12:30 12:40 Temperature Pulse Rate 72 68 73 Pulse Rate [ From Monitor] Respiratory 14 16 14 Rate Blood Pressure O2 Sat by Pulse 100 100 100 Oximetry 08/03/18 08/03/18 08/03/18 12:50 13:00 13:10 Temperature Pulse Rate 73 72 76 Pulse Rate [ From Monitor] Respiratory 16 17 19 Rate Blood Pressure O2 Sat by Pulse 100 100 100 Oximetry 08/03/18 08/03/18 08/03/18 13:20 13:30 13:40 Temperature Pulse Rate 74 76 74 Pulse Rate [ From Monitor] Respiratory 19 14 14 Rate Blood Pressure 116/59 O2 Sat by Pulse 100 100 100 Oximetry 08/03/18 08/03/18 08/03/18 13:50 14:00 14:10 Temperature Pulse Rate 74 72 77 Pulse Rate [ From Monitor] Respiratory 20 20 23 Rate Blood Pressure O2 Sat by Pulse 100 100 100 Oximetry 08/03/18 08/03/18 08/03/18 14:20 14:30 14:40 Temperature Pulse Rate 76 72 71 Pulse Rate [ From Monitor] Respiratory 15 13 14 Rate Blood Pressure O2 Sat by Pulse 100 100 100 Oximetry 08/03/18 08/03/18 08/03/18 14:50 15:00 15:10 Temperature Pulse Rate 71 72 69 Pulse Rate [ From Monitor] Respiratory 13 18 16 Rate Blood Pressure 120/62 O2 Sat by Pulse 100 100 100 Oximetry 08/03/18 08/03/18 08/03/18 15:20 15:30 15:40 Temperature Pulse Rate 66 65 64 Pulse Rate [ From Monitor] Respiratory 16 18 15 Rate Blood Pressure 116/59 O2 Sat by Pulse 100 100 100 Oximetry 08/03/18 08/03/18 08/03/18 15:50 16:00 16:10 Temperature Pulse Rate 65 67 65 Pulse Rate [ From Monitor] Respiratory 13 11 L 15 Rate Blood Pressure 124/67 O2 Sat by Pulse 100 100 100 Oximetry 08/03/18 08/03/18 08/03/18 16:20 16:30 16:40 Temperature Pulse Rate 65 76 77 Pulse Rate [ From Monitor] Respiratory 17 19 21 Rate Blood Pressure O2 Sat by Pulse 100 100 100 Oximetry 08/03/18 08/03/18 08/03/18 16:50 17:00 17:10 Temperature Pulse Rate 80 76 77 Pulse Rate [ From Monitor] Respiratory 22 18 16 Rate Blood Pressure 143/71 O2 Sat by Pulse 100 100 Oximetry General appearance: Present: no acute distress, well-nourished - EENT Eyes: PERRL, EOM intact ENT: hearing intact, clear oral mucosa Ears: bilateral: normal - Neck Neck: supple, normal ROM - Respiratory Respiratory effort: normal Respiratory: bilateral: CTA - Breasts Breasts: normal - Cardiovascular Heart rate: 76 Rhythm: regular Heart Sounds: Present: S1 & S2. Absent: gallop, rub Extremities: pulses intact, No edema, normal color, Full ROM - Gastrointestinal General gastrointestinal: Present: soft, non-tender, non-distended, normal bowel sounds - Genitourinary Female genitourinary: normal - Integumentary Integumentary: clear, warm, dry - Musculoskeletal Musculoskeletal: 1, strength equal bilaterally - Neurologic Neurologic: moves all extremities - Psychiatric Psychiatric: memory intact, appropriate mood/affect, intact judgment & insight - Labs CBC & Chem 7: 08/01/18 22:54 08/03/18 05:38 Labs: Abnormal lab results 08/03/18 Range/Units 05:38 Sodium 132 L D (137-145) mmol/L Carbon Dioxide 21 L (22-30) mmol/L Creatinine 0.6 L (0.7-1.2) mg/dL Glucose 123 H (65-100) mg/dL Calcium 7.8 L (8.4-10.2) mg/dL
[2018-08-04] MEDS: NS/KCL 20MEQ 20 MEQ/1,000 ML BAG IV SCH ×2 (00:39→09:11)
[2018-08-04] MEDS: CARAFATE PO SCH ×2 (00:39→06:38)
[2018-08-04 05:14] LABS: BUN/Creatinine Ratio 23; Blood Urea Nitrogen 9 mg/dL (7-17); Calcium 7.9 mg/dL (8.4-10.2)
[2018-08-04 05:15] LABS: Hemolysis Index 32
[2018-08-04] MEDS: ZOSYN/NS 3.375GM/50ML 3.375 GM/50 ML BAG IV SCH (06:38)
[2018-08-04] MEDS: HEPARIN SUB-Q SCH (09:11)
[2018-08-04] MEDS: PLAVIX PO SCH (09:11)
[2018-08-04] MEDS: PEPCID PO SCH (09:12)
[2018-08-04] MEDS: PROTONIX PO SCH (09:12)
[2018-08-04] MEDS: TOPROL XL PO SCH (09:37)
[2018-08-04] MEDS: FERGON PO SCH (09:37)
--- NOTE | 2018-08-04 09:58 | Progress Note ---
Assessment and Plan Impression: * Hyponatremias secondary to multifactorial etiologies: SIADH, volume depletion * AMS * Sepsis * Lactic acidosis - resolved * Hypothyroidism Plan: * NA improved following 3% saline followed by NS * Continue IVF for hydration * Replete lytes prn * Abx per primary team - no culture data available at present Subjective Date of service: 08/04/18 Principal diagnosis: hyponatremia Interval history: No acute events overnight Objective - Vital Signs Vital signs: Vital Signs - 12hr 08/03/18 08/03/18 08/03/18 22:00 22:10 22:20 Temperature Pulse Rate 59 L 65 63 Pulse Rate [ From Monitor] Respiratory 13 15 17 Rate Blood Pressure 139/66 139/66 139/66 O2 Sat by Pulse 100 100 99 Oximetry 08/03/18 08/03/18 08/03/18 22:30 22:40 22:50 Temperature Pulse Rate 63 66 63 Pulse Rate [ From Monitor] Respiratory 20 19 18 Rate Blood Pressure 139/66 139/66 139/66 O2 Sat by Pulse 100 100 100 Oximetry 08/03/18 08/03/18 08/03/18 23:00 23:10 23:20 Temperature Pulse Rate 60 60 61 Pulse Rate [ From Monitor] Respiratory 17 19 16 Rate Blood Pressure 146/72 146/72 146/72 O2 Sat by Pulse 100 100 100 Oximetry 08/03/18 08/03/18 08/03/18 23:30 23:40 23:47 Temperature Pulse Rate 68 64 56 L Pulse Rate [ From Monitor] Respiratory 13 Rate Blood Pressure 146/72 146/72 146/72 O2 Sat by Pulse 81 L 100 Oximetry 08/03/18 08/04/18 08/04/18 23:50 00:00 00:02 Temperature 98.6 F Pulse Rate 58 L 59 L 61 Pulse Rate [ 68 From Monitor] Respiratory 18 18 11 L Rate Blood Pressure 146/72 149/74 149/74 O2 Sat by Pulse 100 99 100 Oximetry 08/04/18 08/04/18 08/04/18 00:10 00:20 00:30 Temperature Pulse Rate 60 58 L 56 L Pulse Rate [ From Monitor] Respiratory 17 17 16 Rate Blood Pressure 149/74 149/74 149/74 O2 Sat by Pulse 100 100 100 Oximetry 08/04/18 08/04/18 08/04/18 00:40 00:50 01:00 Temperature Pulse Rate 57 L 59 L 61 Pulse Rate [ From Monitor] Respiratory 22 16 14 Rate Blood Pressure 149/74 149/74 149/74 O2 Sat by Pulse 100 100 100 Oximetry 08/04/18 08/04/18 08/04/18 01:10 01:20 01:30 Temperature Pulse Rate 61 58 L 57 L Pulse Rate [ From Monitor] Respiratory 12 14 12 Rate Blood Pressure 165/75 165/75 165/75 O2 Sat by Pulse 100 100 100 Oximetry 08/04/18 08/04/18 08/04/18 01:40 01:50 02:00 Temperature Pulse Rate 55 L 64 58 L Pulse Rate [ From Monitor] Respiratory 12 20 16 Rate Blood Pressure 165/75 165/75 150/68 O2 Sat by Pulse 100 100 100 Oximetry 08/04/18 08/04/18 08/04/18 02:10 02:20 02:30 Temperature Pulse Rate 59 L 55 L 59 L Pulse Rate [ From Monitor] Respiratory 15 17 16 Rate Blood Pressure 150/68 150/68 150/68 O2 Sat by Pulse 100 100 100 Oximetry 08/04/18 08/04/18 08/04/18 02:40 02:50 03:00 Temperature Pulse Rate 57 L 58 L 61 Pulse Rate [ From Monitor] Respiratory 18 18 16 Rate Blood Pressure 150/68 150/68 163/73 O2 Sat by Pulse 100 100 100 Oximetry 08/04/18 08/04/18 08/04/18 03:10 03:20 03:30 Temperature Pulse Rate 66 57 L 57 L Pulse Rate [ From Monitor] Respiratory 15 14 13 Rate Blood Pressure 150/68 157/73 157/73 O2 Sat by Pulse 43 L 100 100 Oximetry 08/04/18 08/04/18 08/04/18 03:40 03:50 04:00 Temperature 98 F Pulse Rate 58 L 56 L 63 Pulse Rate [ 73 From Monitor] Respiratory 17 12 15 Rate Blood Pressure 163/73 163/73 163/73 O2 Sat by Pulse 100 100 89 Oximetry 08/04/18 08/04/18 08/04/18 04:10 04:20 04:30 Temperature Pulse Rate 64 57 L 60 Pulse Rate [ From Monitor] Respiratory 15 16 15 Rate Blood Pressure 160/83 160/83 160/83 O2 Sat by Pulse 100 Oximetry 08/04/18 08/04/18 08/04/18 04:40 04:50 05:00 Temperature Pulse Rate 60 56 L 60 Pulse Rate [ From Monitor] Respiratory 14 13 15 Rate Blood Pressure 160/83 160/83 159/75 O2 Sat by Pulse 100 100 100 Oximetry 08/04/18 08/04/18 08/04/18 05:10 05:20 05:30 Temperature Pulse Rate 59 L 59 L 60 Pulse Rate [ From Monitor] Respiratory 14 13 17 Rate Blood Pressure 159/75 159/75 159/75 O2 Sat by Pulse 100 100 100 Oximetry 08/04/18 08/04/18 08/04/18 05:40 05:50 06:00 Temperature Pulse Rate 69 62 69 Pulse Rate [ From Monitor] Respiratory 23 11 L 17 Rate Blood Pressure 159/75 159/75 159/75 O2 Sat by Pulse 100 100 Oximetry 08/04/18 08/04/18 08/04/18 06:10 06:20 06:30 Temperature Pulse Rate 71 58 L 65 Pulse Rate [ From Monitor] Respiratory 16 11 L 17 Rate Blood Pressure 159/75 159/75 162/80 O2 Sat by Pulse 100 100 Oximetry 08/04/18 08/04/18 08/04/18 06:40 06:50 07:00 Temperature Pulse Rate 60 60 56 L Pulse Rate [ From Monitor] Respiratory 13 20 14 Rate Blood Pressure 162/80 156/124 149/56 O2 Sat by Pulse 100 100 100 Oximetry 08/04/18 08/04/18 08/04/18 07:10 07:20 07:30 Temperature Pulse Rate 60 56 L 55 L Pulse Rate [ From Monitor] Respiratory 14 11 L 12 Rate Blood Pressure 149/56 149/56 149/56 O2 Sat by Pulse 100 100 100 Oximetry 08/04/18 08/04/18 08/04/18 07:40 07:50 08:00 Temperature Pulse Rate 56 L 62 69 Pulse Rate [ 73 From Monitor] Respiratory 13 13 15 Rate Blood Pressure 149/56 149/56 149/56 O2 Sat by Pulse 100 100 97 Oximetry 08/04/18 08/04/18 08/04/18 08:10 08:20 08:30 Temperature Pulse Rate 54 L 56 L 67 Pulse Rate [ From Monitor] Respiratory 16 19 10 L Rate Blood Pressure 151/51 151/51 151/51 O2 Sat by Pulse 100 100 100 Oximetry 08/04/18 08/04/18 08:40 09:37 Temperature Pulse Rate 74 78 Pulse Rate [ From Monitor] Respiratory 18 Rate Blood Pressure 151/51 146/72 O2 Sat by Pulse 100 Oximetry - General Appearance General appearance: well-developed, frail EENT: ATNC Respiratory: Present: Clear to Ascultation Cardiology: regular, S1S2 Gastrointestinal: normal, no tenderness, no distended Integumentary: warm and dry Musculoskeletal: other (no edema) Psychiatric: cooperative - Lab 08/01/18 22:54 08/04/18 03:52 Most recent lab results Calcium 7.9 mg/dL (8.4-10.2) L 08/04/18 03:52 Magnesium 2.10 mg/dL (1.7-2.3) 08/02/18 13:30 Medications & Allergies - Medications Allergies/Adverse Reactions: Allergies No Known Allergies Allergy (Verified 01/16/16 22:10) Home Medications: Home Medications Medication Instructions Recorded Confirmed Last Taken Type Alendronate Sodium [Fosamax] 70 mg PO QWEEK 01/16/16 11/23/16 Unknown History Ferrous Gluconate [Fergon 325 MG 325 mg PO QDAY 01/16/16 11/23/16 Unknown Histo ry tab] Famotidine [Pepcid] 20 mg PO BID #60 tablet 01/19/16 11/23/16 Unknown Rx AtorvaSTATin [Lipitor] 40 mg PO QHS #30 tablet 11/07/16 11/23/16 Unknown Rx Metoprolol Xl [Metoprolol 25 mg PO DAILY 11/23/16 11/26/16 11/23/16 10:00 History SUCCINATE ER TAB] diphenhydrAMINE [Benadryl CAP] 50 mg PO DAILY PRN 11/23/16 11/23/16 Unknown History Pantoprazole [Protonix TAB] 40 mg PO QDAY #30 tablet 11/25/16 Unknown Rx Simethicone [Gas-X] 80 mg PO Q6H PRN #20 tab.chew 11/25/16 Unknown Rx Clopidogrel [Plavix] 75 mg PO QDAY #30 tablet 11/26/16 Unknown Rx Sucralfate [Carafate] 1 gm PO Q6HR 14 Days udc 11/26/16 Unknown Rx Active Medications: Generic Name Dose Route Start Last Admin Trade Name Freq PRN Reason Stop Dose Admin Acetaminophen 650 mg 08/02/18 08:10 08/02/18 10:28 Tylenol NC 650 mg Q6H PRN Administration Pain, Mild (1-3) Atorvastatin Calcium 40 mg 08/02/18 22:00 08/03/18 22:26 Lipitor PO 40 mg QHS THAO Administration Clopidogrel Bisulfate 75 mg 08/02/18 10:00 08/04/18 09:11 Plavix PO 75 mg QDAY THAO Administration Famotidine 20 mg 08/02/18 10:00 08/04/18 09:12 Pepcid PO 20 mg BID THAO Administration Ferrous Gluconate 324 mg 08/02/18 10:00 08/04/18 09:37 Fergon PO 324 mg QDAY THAO Administration Heparin Sodium (Porcine) 5,000 unit 08/02/18 10:00 08/04/18 09:11 Heparin SUB-Q 5,000 unit Q12HR THAO Administration Potassium Chloride/Sodium Chloride 20 meq in 1,000 mls @ 125 mls/hr 08/02/18 13:00 08/04/18 09:11 Ns/Kcl 20meq IV 125 mls/hr DIRECT THAO Administration Piperacillin Sod/Tazobactam Sod 3.375 gm in 50 mls @ 100 mls/hr 08/02/18 22:00 08/04/18 06:38 Zosyn/Ns 3.375gm/50ml IV 100 mls/hr Q8HR THAO Administration Protocol Metoprolol Succinate 25 mg 08/02/18 10:00 08/04/18 09:37 Toprol Xl PO 25 mg DAILY THAO Administration Pantoprazole Sodium 40 mg 08/02/18 10:00 08/04/18 09:12 Protonix PO 40 mg QDAY THAO Administration Simethicone 80 mg 08/02/18 05:52 Mylicon PO Q6H PRN bloating Sucralfate 1 gm 08/02/18 06:00 08/04/18 06:38 Carafate PO 1 gm Q6HR THAO Administration
--- NOTE | 2018-08-04 12:47 | Discharge Summary ---
Providers - Providers Date of Admission: 08/02/18 03:34 Date of discharge: 08/04/18 Attending physician: BRITTANY LAND 08/02/18 03:43 Consult to Physician [CONS] Urgent Comment: Dr. Rosa spoke with Dr. Lopez @ ? 0400 Consulting Provider: GAIL LECHUGA Physician Instructions: Reason For Exam: HYPONATREMIA WITH SEIZURE Primary care physician: PARAPROFESSIONAL EDUCATION ASSISTANT Hospitalization Condition: Critical Hospital course: Assessment and Plan - Patient Problems (1) Hyponatremia Current Visit: Yes Status: Acute Plan to address problem: Improving NS for now Improved to 133 (2) ESRD (end stage renal disease) Current Visit: Yes Status: Chronic Plan to address problem: Cont HD (3) Hypothyroidism Current Visit: Yes Status: Chronic Qualifiers: Hypothyroidism type: acquired Qualified Code(s): E03.9 - Hypothyroidism, unspecified Plan to address problem: Cont Synthyroid (4) Sepsis Current Visit: Yes Status: Acute Plan to address problem: Cultures negative D/c on po Abx Disposition: [id number]/[place]-06 HOME UNDER HOME HLTH - Discharge Diagnoses (1) Hyponatremia Status: Acute (2) ESRD (end stage renal disease) Status: Chronic (3) Hypothyroidism Status: Chronic Qualifiers: Hypothyroidism type: acquired Qualified Code(s): E03.9 - Hypothyroidism, unspecified (4) Sepsis Status: Acute (5) DVT prophylaxis Status: Acute Core Measure Documentation - Palliative Care Palliative Care/ Comfort Measures: Not Applicable - Core Measures Any of the following diagnoses?: none Exam - Constitutional Vitals: Temp Pulse Resp BP Pulse Ox 98 F 78 18 146/72 100 08/04/18 04:00 08/04/18 09:37 08/04/18 08:40 08/04/18 09:37 08/04/18 08:40 General appearance: Present: no acute distress, well-nourished - EENT Eyes: Present: PERRL ENT: hearing intact, clear oral mucosa - Neck Neck: Present: supple, normal ROM - Respiratory Respiratory effort: normal Respiratory: bilateral: CTA - Cardiovascular Heart rate: 78 Rhythm: regular Heart Sounds: Present: S1 & S2. Absent: rub, click - Extremities Extremities: no ischemia, pulses intact, pulses symmetrical, No edema Peripheral Pulses: within normal limits - Abdominal General gastrointestinal: Present: soft, non-tender, non-distended, normal bowel sounds Female genitourinary: Present: normal - Rectal Rectal Exam: deferred - Integumentary Integumentary: Present: clear, warm, dry - Musculoskeletal Musculoskeletal: gait normal, strength equal bilaterally - Psychiatric Psychiatric: appropriate mood/affect, intact judgment & insight - Neurologic Neurologic: CNII-XII intact, moves all extremities - Allied Health Allied health notes reviewed: nursing, case management Plan Activity: no restrictions Diet: renal Follow up with: PRIMARY CAREMD [Primary Care Provider] - 7 Days CORINE CHRISTIANSON MD [Staff Physician] - 7 Days
[2018-08-04 13:27] VITALS: BP 179/63
== END 2018-08-04 15:00 | disposition home health service (06) | DRG 871 ==
LOC: ED 21:53 → 4A 08-02 03:34 → IMCU 08-02 09:40
PROVIDERS: ADMIT Internal Medicine; ATTEND Internal Medicine
DX: A41.9 Sepsis, unspecified organism (principal); N18.6 End stage renal disease; E87.1 Hypo-osmolality and hyponatremia; I13.2 Hypertensive heart and chronic kidney disease with heart failure and with stage 5 chronic kidney disease, or end stage renal disease; N39.0 Urinary tract infection, site not specified; I50.9 Heart failure, unspecified; E78.5 Hyperlipidemia, unspecified; M81.0 Age-related osteoporosis without current pathological fracture; M19.90 Unspecified osteoarthritis, unspecified site; K52.9 Noninfective gastroenteritis and colitis, unspecified; E86.9 Volume depletion, unspecified; G40.909 Epilepsy, unspecified, not intractable, without status epilepticus; E87.6 Hypokalemia; E03.9 Hypothyroidism, unspecified; Z90.49 Acquired absence of other specified parts of digestive tract
CPT/HCPCS: 36415; 70450; 71045; 74176; 80048; 80076; 81001; 82140; 82550; 82553; 82805; 82962; 83735; 84484; 85007; 85025; 93005; 93010; 94760; 96365; 96375; 99291; G0378; A9270-GY; J0696; J1644; J2060; J2543; J3475; J3480; J7030

== ENCOUNTER 2019-03-30 10:28 | Inpatient (IN) | payer MEDICARE ==
--- NOTE | 2019-03-30 10:48 | Emergency Department Report ---
ED General Adult HPI - General Chief complaint: Altered Mental Status Stated complaint: HIGH BP Time Seen by Provider: 03/30/19 10:36 Source: family, RN notes reviewed Mode of arrival: Wheelchair Limitations: Altered Mental Status - History of Present Illness Initial comments: Primary care Dr.: Dr. Dumont Past medical history: Cardiomyopathy, ejection fraction 25-30%, high cholesterol, previous admissions for hyponatremia, sepsis and anemia This is a 78-year-old female. She is brought to the hospital by her family. Patient is altered, history obtained from family. As per family, patient started "talking nonsense" at approximately 4:00 in the morning. They're not sure if the patient is having any pain. Apparently, the patient did complain of headache at one point. Patient was unable to describe the nature of the headache. The patient's headache reportedly decreased when "her hair was pet" Patient altered, moving 4 extremities, not able to provide additional history. As per family, there is no vomiting. There is no syncope. There is no other indication of pain. Patient not able to describe exacerbating or liver factors, or qualitative nature of her symptoms. Her family believe that the patient has been altered since 4:00 in the morning. The patient is also sticking out her tongue. This appears to be voluntary. -: hour(s), This morning Consistency: constant Improves with: none (per family) Worsens with: none (per family) - Related Data Home Medications Medication Instructions Recorded Confirmed Last Taken Clopidogrel [Plavix] 75 mg PO QDAY 03/30/19 03/30/19 03/29/19 Meclizine [Antivert] 25 mg PO QDAY 03/30/19 03/30/19 03/09/19 Omeprazole 20 mg PO QDAY 03/30/19 03/30/19 03/16/19 Sertraline [Zoloft] 50 mg PO QDAY 03/30/19 03/30/19 03/29/19 Simvastatin 10 mg PO QHS 03/30/19 03/30/19 03/29/19 metroNIDAZOLE [Flagyl] 500 mg PO Q12HR 03/30/19 03/30/19 03/29/19 Previous Rx's Medication Instructions Recorded Last Taken Type Clopidogrel [Plavix] 75 mg PO QDAY 30 Days #30 tablet 12/31/18 08/26/19 Rx Metoprolol Xl [Metoprolol 25 mg PO DAILY #30 tablet 08/04/18 03/30/19 Rx SUCCINATE ER TAB] Allergies Allergy/AdvReac Type Severity Reaction Status Date / Time No Known Allergies Allergy Verified 01/16/16 22:10 ED Review of Systems ROS: Stated complaint: HIGH BP Other details as noted in HPI Comment: Unobtainable due to pts medical conditions Neurological: confusion ED Past Medical Hx - Past Medical History Hx Hypertension: Yes (cardiomyopathy of 25-30%) Hx Congestive Heart Failure: Yes Hx Arthritis: Yes Additional medical history: Thyroid, Osteoporosis, Cardiomypathy, hyperlipidemia - Surgical History Hx Cholecystectomy: Yes - Social History Smoking Status: Never Smoker Substance Use Type: None - Medications Home Medications: Home Medications Medication Instructions Recorded Confirmed Last Taken Type Clopidogrel [Plavix] 75 mg PO QDAY 30 Days #30 tablet 08/04/18 03/30/19 03/30/19 Rx Metoprolol Xl [Metoprolol 25 mg PO DAILY #30 tablet 08/04/18 03/30/19 03/30/19 Rx SUCCINATE ER TAB] Clopidogrel [Plavix] 75 mg PO QDAY 03/30/19 03/30/19 03/29/19 History Meclizine [Antivert] 25 mg PO QDAY 03/30/19 03/30/19 03/09/19 History Omeprazole 20 mg PO QDAY 03/30/19 03/30/19 03/16/19 History Sertraline [Zoloft] 50 mg PO QDAY 03/30/19 03/30/19 03/29/19 History Simvastatin 10 mg PO QHS 03/30/19 03/30/19 03/29/19 History metroNIDAZOLE [Flagyl] 500 mg PO Q12HR 03/30/19 03/30/19 03/29/19 History ED Physical Exam - General Limitations: Altered Mental Status General appearance: anxious - Head Head exam: Present: atraumatic, normocephalic - Eye Eye exam: Present: normal appearance, EOMI - ENT ENT exam: Present: mucous membranes dry, normal external ear exam, other (tongue is midline. Patient protrudes and retracts tongue intermittently) - Neck Neck exam: Present: normal inspection, full ROM. Absent: tenderness, mening ismus - Respiratory Respiratory exam: Present: normal lung sounds bilaterally. Absent: respiratory distress, wheezes, rales, rhonchi, stridor - Cardiovascular Cardiovascular Exam: Present: regular rate, normal rhythm, normal heart sounds. Absent: bradycardia, tachycardia, irregular rhythm, systolic murmur, diastolic murmur, rubs, gallop - GI/Abdominal GI/Abdominal exam: Present: soft. Absent: distended, tenderness, guarding, rebound, rigid, pulsatile mass - Extremities Exam Extremities exam: Present: normal inspection, full ROM, other (2+ pulses noted in the bilateral upper, lower extremities. There is no long bony tenderness. The pelvis is stable. Muscular compartments are soft.). Absent: calf tenderness - Back Exam Back exam: Present: normal inspection. Absent: tenderness, CVA tenderness (R), CVA tenderness (L), paraspinal tenderness, vertebral tenderness - Neurological Exam Neurological exam: Present: altered, other (there is no facial droop. The tongue is midline. Moving 4 extremities spontaneously. Detailed neurologic examination not possible secondary to altered mental status) - Psychiatric Psychiatric exam: Present: agitated, anxious - Skin Skin exam: Present: warm, dry, intact, normal color. Absent: rash ED Course Vital Signs 03/30/19 03/30/19 03/30/19 11:00 11:15 11:30 Temperature 98.8 F Pulse Rate 74 95 H 89 Respiratory 18 15 18 Rate Blood Pressure 155/70 Blood Pressure 194/82 178/85 109/30 [Right] O2 Sat by Pulse 100 94 100 Oximetry 03/30/19 03/30/19 03/30/19 11:31 11:45 11:57 Temperature Pulse Rate 88 78 77 Respiratory 13 13 18 Rate Blood Pressure 155/70 102/53 Blood Pressure 151/95 [Right] O2 Sat by Pulse 100 100 100 Oximetry 03/30/19 03/30/19 03/30/19 12:15 12:30 12:45 Temperature Pulse Rate 77 74 81 Respiratory 9 L 12 17 Rate Blood Pressure 98/66 96/48 96/48 Blood Pressure [Right] O2 Sat by Pulse 99 100 100 Oximetry 03/30/19 03/30/19 03/30/19 13:04 14:01 14:17 Temperature Pulse Rate 65 87 87 Respiratory 18 18 18 Rate Blood Pressure Blood Pressure 150/89 99/54 98/60 [Right] O2 Sat by Pulse 100 100 100 Oximetry - Reevaluation(s) Reevaluation #1: 03/30/19 11:33 Differential diagnosis, including but not limited to: Dementia, pneumonia, urinary tract infection, subacute stroke Assessment and plan: 78-year-old female, altered mental status, nonfocal motor examination, with change in personality/mental status, at 4:00 in the morning, as per family. This is unlikely to be an ischemic stroke, more likely to be a toxic/metabolic/infectious etiology, and it also appears that she is on namenda, may be a component of presumed worsening dementia. Patient medicated with Versed for agitation. Seen in conjunction with stroke neurology, Dr. Keller, who agrees that the patient does not meet TPA criteria, and we both agree that her examination is not suggestive of large vessel occlusion, therefore, emergent CT angiogram is not indicated at this point in time. Patient found to have luis dence of dehydration, hypokalemia, and she will be treated for both of these, elevated troponin nonspecific, EKG is pending at this time, may be a type II troponin leak. Hospital physician is paged to arrange admission. Reevaluation #2: 03/30/19 12:20 Laboratory studies reviewed and appreciated. Without fever or leukocytosis, and resolved tachycardia, and since there is no neck pain or neck stiffness, patient moving her neck without difficulty, intracranial infection is unlikely. Elevated lactic acid is reviewed and appreciated, this may be secondary to dehydration do not suspect invasive bacterial illness at this time, and we will withhold antibiotics. Repeat lactic acid is pending, IV fluids have been ordered, case discussed with Hospital physician, Dr. Maru Acuña, who accepts the patient to his service, and agrees with the aforementioned plan. Reevaluation #3: 03/30/19 12:23 Elevated troponin appreciated. Has normal renal function. EKG unremarkable. We'll defer to inpatient team to further evaluate this. 03/30/19 12:23 ED Medical Decision Making - Lab Data Result diagrams: 03/30/19 11:17 03/30/19 10:40 Lab Results 03/30/19 03/30/19 03/30/19 Range/Units 10:40 10:40 10:40 PT 11.9 L (12.2-14.9) Sec. INR 0.90 (0.87-1.13) APTT 23.4 L (24.2-36.6) Sec. Thrombin Time 15.3 (15.1-19.6) Sec. Sodium 132 L (137-145) mmol/L Potassium 2.3 L* (3.6-5.0) mmol/L Chloride 86.4 L (98-107) mmol/L Carbon Dioxide 27 (22-30) mmol/L Anion Gap 21 mmol/L BUN 10 (7-17) mg/dL Creatinine 0.6 L (0.7-1.2) mg/dL Estimated GFR > 60 ml/min BUN/Creatinine Ratio 17 % Glucose 143 H (65-100) mg/dL POC Glucose (70-105) Lactic Acid (0.7-2.0) mmol/L Calcium 8.9 (8.4-10.2) mg/dL Magnesium 2.10 (1.7-2.3) mg/dL Total Bilirubin 0.90 (0.1-1.2) mg/dL AST 49 H (5-40) units/L ALT 18 (7-56) units/L Alkaline Phosphatase 48 (35-129) units/L Total Creatine Kinase 200 H (30-135) units/L CK-MB (CK-2) 11.7 H (0.0-4.0) ng/mL CK-MB (CK-2) Rel Index 5.8 H (0-4) Troponin T 0.072 H (0.00-0.029) ng/mL Total Protein 7.6 (6.3-8.2) g/dL Albumin 4.1 (3.9-5) g/dL Albumin/Globulin Ratio 1.2 % Triglycerides 180 H (2-149) mg/dL Cholesterol 188 (50-199) mg/dL LDL Cholesterol Direct 103 (50-130) mg/dL HDL Cholesterol 77 H (40-59) mg/dL Cholesterol/HDL Ratio 2.44 % TSH 2.880 (0.270-4.200) mlU/mL Salicylates (2.8-20.0) mg/dL Acetaminophen (10.0-30.0) ug/mL Plasma/Serum Alcohol (0-0.07) % 03/30/19 03/30/19 03/30/19 Range/Units 10:40 10:40 10:40 PT (12.2-14.9) Sec. INR (0.87-1.13) APTT (24.2-36.6) Sec. Thrombin Time (15.1-19.6) Sec. Sodium (137-145) mmol/L Potassium (3.6-5.0) mmol/L Chloride (98-107) mmol/L Carbon Dioxide (22-30) mmol/L Anion Gap mmol/L BUN (7-17) mg/dL Creatinine (0.7-1.2) mg/dL Estimated GFR ml/min BUN/Creatinine Ratio % Glucose (65-100) mg/dL POC Glucose (70-105) Lactic Acid (0.7-2.0) mmol/L Calcium (8.4-10.2) mg/dL Magnesium (1.7-2.3) mg/dL Total Bilirubin (0.1-1.2) mg/dL AST (5-40) units/L ALT (7-56) units/L Alkaline Phosphatase (35-129) units/L Total Creatine Kinase (30-135) units/L CK-MB (CK-2) (0.0-4.0) ng/mL CK-MB (CK-2) Rel Index (0-4) Troponin T (0.00-0.029) ng/mL Total Protein (6.3-8.2) g/dL Albumin (3.9-5) g/dL Albumin/Globulin Ratio % Triglycerides (2-149) mg/dL Cholesterol (50-199) mg/dL LDL Cholesterol Direct (50-130) mg/dL HDL Cholesterol (40-59) mg/dL Cholesterol/HDL Ratio % TSH (0.270-4.200) mlU/mL Salicylates < 0.3 L (2.8-20.0) mg/dL Acetaminophen 10.9 (10.0-30.0) ug/mL Plasma/Serum Alcohol < 0.01 (0-0.07) % 03/30/19 03/30/19 Range/Units 10:40 10:45 PT (12.2-14.9) Sec. INR (0.87-1.13) APTT (24.2-36.6) Sec. Thrombin Time (15.1-19.6) Sec. Sodium (137-145) mmol/L Potassium (3.6-5.0) mmol/L Chloride (98-107) mmol/L Carbon Dioxide (22-30) mmol/L Anion Gap mmol/L BUN (7-17) mg/dL Creatinine (0.7-1.2) mg/dL Estimated GFR ml/min BUN/Creatinine Ratio % Glucose (65-100) mg/dL POC Glucose 152 H (70-105) Lactic Acid 4.60 H* (0.7-2.0) mmol/L Calcium (8.4-10.2) mg/dL Magnesium (1.7-2.3) mg/dL Total Bilirubin (0.1-1.2) mg/dL AST (5-40) units/L ALT (7-56) units/L Alkaline Phosphatase (35-129) units/L Total Creatine Kinase (30-135) units/L CK-MB (CK-2) (0.0-4.0) ng/mL CK-MB (CK-2) Rel Index (0-4) Troponin T (0.00-0.029) ng/mL Total Protein (6.3-8.2) g/dL Albumin (3.9-5) g/dL Albumin/Globulin Ratio % Triglycerides (2-149) mg/dL Cholesterol (50-199) mg/dL LDL Cholesterol Direct (50-130) mg/dL HDL Cholesterol (40-59) mg/dL Cholesterol/HDL Ratio % TSH (0.270-4.200) mlU/mL Salicylates (2.8-20.0) mg/dL Acetaminophen (10.0-30.0) ug/mL Plasma/Serum Alcohol (0-0.07) % - EKG Data -: EKG Interpreted by Me EKG shows normal: sinus rhythm Rate: normal - EKG Data 03/30/19 12:22 This is a sinus rhythm, 76 bpm, left axis deviation, QTC prolonged, left ventricular hypertrophy, low voltage, the EKG is abnormal, the EKG is not consistent with ST elevation myocardial infarction. - Radiology Data Radiology results: report reviewed, image reviewed interpreted by me: xr chest negative for acute disease as per Dr Montez, ct head negative Print Report Referring Physician: MARTÍN WOODS Patient Name: MARGAUX MAC Date of : 1940 Sex: Female Report Date: 2019-03-30 Report Status: Finalized Findings [facility] [address] [place] [address] Cat Scan Report Signed Patient: MARGAUX MAC MR#: [id number] 44 : 1940 Acct:[id number] Age/Sex: 78 / F ADM Date: 03/30/19 Loc: ED Attending Dr: Ordering Physician: MARTÍN WOODS MD Date of Service: 03/30/19 Procedure(s): CT head/brain wo con Accession Number(s): [id number] cc: MARTÍN WOODS MD CT head without contrast INDICATION : Stroke symptoms. TECHNIQUE: Axial imaging performed from the skull apex through the skull base without the use of contrast. All CT scans at this location are performed using CT dose reduction for ALARA by means of automated exposure control. COMPARISON: 08/02/2018 FINDINGS: Parenchyma: No acute intracranial hemorrhage or significant parenchymal abnormality. Mild periventricular white matter hypodensities and no suspicious hypodensity. Bilateral benign basal ganglia calcifications. Ventricles: Ventricles are normal in size and appear symmetric. Soft tissues: Soft tissues including the orbits appear normal. Bones: No acute osseous abnormality. Sinuses: Sinuses and mastoid air cells are clear. IMPRESSION: No evidence of acute/subacute infarct or hemorrhage. Verbal report was given to Dr. Woods in the emergency department at 11:23 AM on 03/30/2019. CODE STROKE ALERT Signer Name: Maria L Montez MD Signed: 03/30/2019 11:25 AM Workstation Name: [id number] Transcribed By: REF Dictated By: MARIA L MONTEZ MD Electronically Authenticated By: MARIA L MONTEZ MD Signed Date/Time: 03/30/19 1125 Critical care attestation.: If time is entered above; I have spent that time in minutes in the direct care of this critically ill patient, excluding procedure time. ED Disposition Clinical Impression: Acute hypokalemia, Acute encephalopathy, Cardiac enzymes elevated Disposition: OP ADMIT IP TO THIS HOSP Is pt being admited?: Yes Does the pt Need Aspirin: Yes Condition: Fair
[2019-03-30] MEDS ORDERED: VERSED IV NR (11:00)
--- NOTE | 2019-03-30 11:12 | Emergency Department Report ---
ED Altered Mental Status HPI - General Chief Complaint: Altered Mental Status Stated Complaint: HIGH BP Time Seen by Provider: 03/30/19 10:36 Source: family Mode of arrival: Wheelchair Limitations: No Limitations - History of Present Illness Initial Comments: [facility] Date of service: 03/30/2019 Impression: 78 year old female who presents from home after being found altered. Unclear if symptoms are due to stroke vs infectious or metabolic or hypertensive encephalopathy Not a tpa candidate due to: LSN more than 4.5 hours prior arrival Does not meet LVO screening criteria (no aphasia, neglect, gaze deviation, dense hemiparesis, or visual field deficits on exam), therefore advanced imaging is not indicated. Comments: Door Time: 10:28 [employer] contacted: 10:44 [facility] at bedside:10:49 NIHSS assessment start time (time the consultation begins):03/29 Last known well time (LKW): 11:05 Recommendations: Start antiplatelet if no obvious contraindication Stroke protocol admission/ orderset suggested with placement on stroke floor tele monitoring Bedside swallow evaluation HOB less than 30 degrees IV Fluid hydration with NS Euglycemia avoid hyperthermia, PRN acetaminophen dvt ppx Consider inpatient neurology consultation Discussed with ED MD Please call with questions --- ------ CC: Stroke alert History of Present Illness Patient is a78 year old female with unknown history who presents to the hospital because of altered mental status. Patient was last at her baseline last night and then this morning she was nto speaking clearly and but was moving all extremities. Patient does not speak any wallisian and was just speaking jibberish. Diagnostic: CT brain w/o contrast: no acute hemorrhage or large territory infarct. 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 Cranial Nerves: Pupils: Equal round and reactive to light Extraocular movements: Intact in all cardinal gaze Ptosis: Absent Visual ríos: Intact to finger counting Facial sensation: Intact to pin and light touch Facial movements: Intact and symmetric Motor Exam: moves all extremities against gravity Sensory Exam: Light touch: Intact NIHSS score: 8 Medical Decision Making: - Extensive number of diagnosis or management options are considered above. - Extensive amount of complex data reviewed. - High risk of complication and/or morbidity or mortality are associated with differential diagnostic considerations above. - There may be Uncertain outcome and increased probability of prolonged functional impairment or high probability of severe prolonged functional impairment associated with some of these differential diagnosis. Medical Data Reviewed: 1.Data reviewed include clinical labs, radiology,Medical Tests; 2.Tests results discussed w/performing or interpreting physician; 3.Obtaining/reviewing old medical records; 4.Obtaining case history from another source; 5.Independent review of image, tracing or specimen. Patient was informed the Neurology Consult would happen via TeleHealth consult by way of interactive audio and video telecommunications and consented to receiving care in this manner. - Related Data Home Medications Medication Instructions Recorded Confirmed Last Taken Alendronate Sodium [Fosamax] 70 mg PO QWEEK 01/16/16 11/23/16 Unknown diphenhydrAMINE [Benadryl CAP] 50 mg PO DAILY PRN 11/23/16 11/23/16 Unknown Previous Rx's Medication Instructions Recorded Last Taken Type Simethicone [Gas-X] 80 mg PO Q6H PRN #20 tab.chew 11/25/16 Unknown Rx AtorvaSTATin [Lipitor] 40 mg PO QHS #30 tablet 08/04/18 Unknown Rx Clopidogrel [Plavix] 75 mg PO QDAY 30 Days #30 tablet 08/04/18 Unknown Rx Famotidine [Pepcid] 20 mg PO BID #60 tablet 08/04/18 Unknown Rx Ferrous Gluconate [Fergon 325 MG 324 mg PO QDAY tablet 08/04/18 Unknown Rx tab] Metoprolol Xl [Metoprolol 25 mg PO DAILY tablet 08/04/18 Unknown Rx SUCCINATE ER TAB] Metoprolol Xl [Metoprolol 25 mg PO DAILY #30 tablet 08/04/18 Unknown Rx SUCCINATE ER TAB] Pantoprazole [Protonix TAB] 40 mg PO QDAY #30 tablet 08/04/18 Unknown Rx Sucralfate [Carafate] 1 gm PO Q6HR oral.liqd 08/04/18 Unknown Rx Allergies Allergy/AdvReac Type Severity Reaction Status Date / Time No Known Allergies Allergy Verified 01/16/16 22:10 ED Review of Systems ROS: Stated complaint: HIGH BP Other details as noted in HPI ED Past Medical Hx - Past Medical History Hx Hypertension: Yes (cardiomyopathy of 25-30%) Hx Congestive Heart Failure: Yes Hx Arthritis: Yes Additional medical history: Thyroid, Osteoporosis, Cardiomypathy, hyperlipidemia - Surgical History Hx Cholecystectomy: Yes - Social History Smoking Status: Never Smoker Substance Use Type: None - Medications Home Medications: Home Medications Medication Instructions Recorded Confirmed Last Taken Type Alendronate Sodium [Fosamax] 70 mg PO QWEEK 01/16/16 11/23/16 Unknown History diphenhydrAMINE [Benadryl CAP] 50 mg PO DAILY PRN 11/23/16 11/23/16 Unknown History Simethicone [Gas-X] 80 mg PO Q6H PRN #20 tab.chew 11/25/16 Unknown Rx AtorvaSTATin [Lipitor] 40 mg PO QHS #30 tablet 08/04/18 Unknown Rx Clopidogrel [Plavix] 75 mg PO QDAY 30 Days #30 tablet 08/04/18 Unknown Rx Famotidine [Pepcid] 20 mg PO BID #60 tablet 08/04/18 Unknown Rx Ferrous Gluconate [Fergon 325 MG 324 mg PO QDAY tablet 08/04/18 Unknown Rx tab] Metoprolol Xl [Metoprolol 25 mg PO DAILY tablet 08/04/18 Unknown Rx SUCCINATE ER TAB] Metoprolol Xl [Metoprolol 25 mg PO DAILY #30 tablet 08/04/18 Unknown Rx SUCCINATE ER TAB] Pantoprazole [Protonix TAB] 40 mg PO QDAY #30 tablet 08/04/18 Unknown Rx Sucralfate [Carafate] 1 gm PO Q6HR oral.liqd 08/04/18 Unknown Rx ED Physical Exam - General Limitations: No Limitations - Level of Consciousness 1a. Level of Consciousness: alert/keenly responsive - LOC Questions 1b. LOC Questions: answers no questions correctly - LOC Command 1c. LOC Commands: performs no tasks correctly - Best Gaze 2. Best Gaze: normal - Visual 3. Visual: no visual loss - Facial Palsy 4. Facial Palsy: normal symmetrical movement - Motor Arm 5a. Motor Arm Left: no drift 5b. Motor Arm Right: no drift - Motor Leg 6a. Motor Leg Left: no drift 6b. Motor Leg Right: no drift - Limb Ataxia 7. Limb Ataxia: absent - Sensory 8. Sensory: normal - Best Language 9. Best Language: mute/global aphasia - Dysarthria 10. Dysarthria: mild/moderate dysarthria - Extinction and Inattention 11. Extinction/Inattention: no abnormality - Scoring Total Score: 8 Stroke Severity: Moderate Stroke - Lab Data Result diagrams: 03/30/19 10:40 Lab Results 03/30/19 03/30/19 03/30/19 Range/Units 10:40 10:40 10:40 PT 11.9 L (12.2-14.9) Sec. INR 0.90 (0.87-1.13) APTT 23.4 L (24.2-36.6) Sec. Thrombin Time 15.3 (15.1-19.6) Sec. Sodium 132 L (137-145) mmol/L Potassium 2.3 L* (3.6-5.0) mmol/L Chloride 86.4 L (98-107) mmol/L Carbon Dioxide 27 (22-30) mmol/L Anion Gap 21 mmol/L BUN 10 (7-17) mg/dL Creatinine 0.6 L (0.7-1.2) mg/dL Estimated GFR > 60 ml/min BUN/Creatinine Ratio 17 % Glucose 143 H (65-100) mg/dL POC Glucose (70-105) Lactic Acid (0.7-2.0) mmol/L Calcium 8.9 (8.4-10.2) mg/dL Magnesium 2.10 (1.7-2.3) mg/dL Total Bilirubin 0.90 (0.1-1.2) mg/dL AST 49 H (5-40) units/L ALT 18 (7-56) units/L Alkaline Phosphatase 48 (35-129) units/L Total Creatine Kinase 200 H (30-135) units/L CK-MB (CK-2) 11.7 H (0.0-4.0) ng/mL CK-MB (CK-2) Rel Index 5.8 H (0-4) Troponin T 0.072 H (0.00-0.029) ng/mL Total Protein 7.6 (6.3-8.2) g/dL Albumin 4.1 (3.9-5) g/dL Albumin/Globulin Ratio 1.2 % Triglycerides 180 H (2-149) mg/dL Cholesterol 188 (50-199) mg/dL LDL Cholesterol Direct 103 (50-130) mg/dL HDL Cholesterol 77 H (40-59) mg/dL Cholesterol/HDL Ratio 2.44 % TSH 2.880 (0.270-4.200) mlU/mL Salicylates (2.8-20.0) mg/dL Acetaminophen (10.0-30.0) ug/mL Plasma/Serum Alcohol (0-0.07) % 03/30/19 03/30/19 03/30/19 Range/Units 10:40 10:40 10:40 PT (12.2-14.9) Sec. INR (0.87-1.13) APTT (24.2-36.6) Sec. Thrombin Time (15.1-19.6) Sec. Sodium (137-145) mmol/L Potassium (3.6-5.0) mmol/L Chloride (98-107) mmol/L Carbon Dioxide (22-30) mmol/L Anion Gap mmol/L BUN (7-17) mg/dL Creatinine (0.7-1.2) mg/dL Estimated GFR ml/min BUN/Creatinine Ratio % Glucose (65-100) mg/dL POC Glucose (70-105) Lactic Acid (0.7-2.0) mmol/L Calcium (8.4-10.2) mg/dL Magnesium (1.7-2.3) mg/dL Total Bilirubin (0.1-1.2) mg/dL AST (5-40) units/L ALT (7-56) units/L Alkaline Phosphatase (35-129) units/L Total Creatine Kinase (30-135) units/L CK-MB (CK-2) (0.0-4.0) ng/mL CK-MB (CK-2) Rel Index (0-4) Troponin T (0.00-0.029) ng/mL Total Protein (6.3-8.2) g/dL Albumin (3.9-5) g/dL Albumin/Globulin Ratio % Triglycerides (2-149) mg/dL Cholesterol (50-199) mg/dL LDL Cholesterol Direct (50-130) mg/dL HDL Cholesterol (40-59) mg/dL Cholesterol/HDL Ratio % TSH (0.270-4.200) mlU/mL Salicylates < 0.3 L (2.8-20.0) mg/dL Acetaminophen 10.9 (10.0-30.0) ug/mL Plasma/Serum Alcohol < 0.01 (0-0.07) % 03/30/19 03/30/19 Range/Units 10:40 10:45 PT (12.2-14.9) Sec. INR (0.87-1.13) APTT (24.2-36.6) Sec. Thrombin Time (15.1-19.6) Sec. Sodium (137-145) mmol/L Potassium (3.6-5.0) mmol/L Chloride (98-107) mmol/L Carbon Dioxide (22-30) mmol/L Anion Gap mmol/L BUN (7-17) mg/dL Creatinine (0.7-1.2) mg/dL Estimated GFR ml/min BUN/Creatinine Ratio % Glucose (65-100) mg/dL POC Glucose 152 H (70-105) Lactic Acid 4.60 H* (0.7-2.0) mmol/L Calcium (8.4-10.2) mg/dL Magnesium (1.7-2.3) mg/dL Total Bilirubin (0.1-1.2) mg/dL AST (5-40) units/L ALT (7-56) units/L Alkaline Phosphatase (35-129) units/L Total Creatine Kinase (30-135) units/L CK-MB (CK-2) (0.0-4.0) ng/mL CK-MB (CK-2) Rel Index (0-4) Troponin T (0.00-0.029) ng/mL Total Protein (6.3-8.2) g/dL Albumin (3.9-5) g/dL Albumin/Globulin Ratio % Triglycerides (2-149) mg/dL Cholesterol (50-199) mg/dL LDL Cholesterol Direct (50-130) mg/dL HDL Cholesterol (40-59) mg/dL Cholesterol/HDL Ratio % TSH (0.270-4.200) mlU/mL Salicylates (2.8-20.0) mg/dL Acetaminophen (10.0-30.0) ug/mL Plasma/Serum Alcohol (0-0.07) % Critical care attestation.: If time is entered above; I have spent that time in minutes in the direct care of this critically ill patient, excluding procedure time. ED Disposition Clinical Impression: Acute hypokalemia, Acute encephalopathy, Cardiac enzymes elevated Disposition: OP ADMIT IP TO THIS HOSP Is pt being admited?: Yes Condition: Fair
[2019-03-30 11:15] LABS: Creatine Kinase MB 11.7 ng/mL (0.0-4.0)
[2019-03-30 11:17] LABS: INR 0.9 (0.87-1.13)
[2019-03-30 11:18] LABS: Alanine Aminotransferase 18 units/L (7-56); Albumin 4.1 g/dL (3.9-5); BUN/Creatinine Ratio 17; Blood Urea Nitrogen 10 mg/dL (7-17); Calcium 8.9 mg/dL (8.4-10.2); Hemolysis Index 37; Partial Thromboplastin Time 23.4 Sec. (24.2-36.6); Thrombin Time 15.3 Sec. (15.1-19.6)
[2019-03-30] MEDS ORDERED: K-DUR PO ONE (11:26)
[2019-03-30] MEDS ORDERED: NACL 0.9% 500 ML 500 ML IV ONE ×2 (11:26→12:24)
[2019-03-30 11:28] LABS: Chol/HDL Ratio 2.44 %; HDL Cholesterol 77 mg/dL (40-59); LDL Cholesterol,Direct 103 mg/dL (50-130)
--- NOTE | 2019-03-30 11:30 | Cat Scan Report ---
CT head without contrast INDICATION : Stroke symptoms. TECHNIQUE: Axial imaging performed from the skull apex through the skull base without the use of con trast. All CT scans at this location are performed using CT dose reduction for ALARA by means of aut omated exposure control. COMPARISON: 08/02/2018 FINDINGS: Parenchyma: No acute intracranial hemorrhage or significant parenchymal abnormality. Mild periventri cular white matter hypodensities and no suspicious hypodensity. Bilateral benign basal ganglia calcif ications. Ventricles: Ventricles are normal in size and appear symmetric. Soft tissues: Soft tissues including the orbits appear normal. Bones: No acute osseous abnormality. Sinuses: Sinuses and mastoid air cells are clear. IMPRESSION: No evidence of acute/subacute infarct or hemorrhage. Verbal report was given to Dr. Woods in the emergency department at 11:23 AM on 03/30/2019. CODE STROKE ALERT Signer Name: Clifton Beckford MD Signed: 03/30/2019 11:25 AM Workstation Name: [id number]
[2019-03-30 11:53] LABS: Basophils # (Auto) 0.1 K/mm3 (0.0-0.1); Basophils % (Auto) 0.7 % (0.0-1.8); Eosinophils % (Auto) 0.4 % (0.0-4.3); Hematocrit 32.3 % (30.3-42.9); Hemoglobin 11.4 gm/dl (10.1-14.3); Lymphocytes # (Auto) 3.2 K/mm3 (1.2-5.4); Lymphocytes % (Auto) 32.5 % (13.4-35.0); Mean Corpuscular HGB Conc 35 % (30-34); Mean Corpuscular Volume 89 fl (79-97); Monocytes # (Auto) 0.8 K/mm3 (0.0-0.8); Monocytes % (Auto) 8.4 % (0.0-7.3); Platelet Count 316 K/mm3 (140-440); Red Blood Count 3.64 M/mm3 (3.65-5.03); Red Cell Distribution Width 14.2 % (13.2-15.2)
[2019-03-30] MEDS: ASPIRIN PR ONE ×2 (12:10→12:13)
[2019-03-30] MEDS: KCL 10MEQ/100ML 10 MEQ/100 ML BAG IV SCH ×5 (12:10→20:19)
[2019-03-30 12:11] LABS: Amphetamine Screen,Urine PRESUMPTIVE NEGATIVE; Benzodiazepines Screen,Urine PRESUMPTIVE NEGATIVE; Cannabinoid Screen,Urine PRESUMPTIVE NEGATIVE; Cocaine Screen,Urine PRESUMPTIVE NEGATIVE; Methadone Screen,Urine PRESUMPTIVE NEGATIVE; Opiate Screen,Urine PRESUMPTIVE NEGATIVE
[2019-03-30 12:15] LABS: Bilirubin,Urine NEG (Negative); Blood,Urine MOD (Negative); Color,Urine Straw (Yellow); Protein,Urine <15 mg/dL mg/dL (Negative); Urobilinogen,Urine < 2.0 mg/dL (<2.0)
--- NOTE | 2019-03-30 12:22 | XRay Report ---
CHEST 1 VIEW INDICATION / CLINICAL INFORMATION: ams cva. COMPARISON: 07/24/2019 FINDINGS: SUPPORT DEVICES: None. HEART / MEDIASTINUM: No significant abnormality. LUNGS / PLEURA: No significant pulmonary or pleural abnormality. No pneumothorax. ADDITIONAL FINDINGS: No significant additional findings. IMPRESSION: No acute disease or interval change from 08/02/2018 Signer Name: Zaki Smith MD FACR Signed: 03/30/2019 12:17 PM Workstation Name: [id number]
[2019-03-30] MEDS ORDERED: KCL 10MEQ/100ML 10 MEQ/100 ML BAG IV ONE (13:39)
[2019-03-30] MEDS ORDERED: SODIUM CHLORIDE FLUSH SYRINGE 10 ML IV PRN (22:45)
[2019-03-30] MEDS ORDERED: BENADRYL PO PRN (22:49)
--- NOTE | 2019-03-31 06:13 | Event Note ---
Date: 03/30/19 See H/p in reports Acute encephalopathy Etio unclear Hypokalemia
[2019-03-31] MEDS: KCL 10MEQ/100ML 10 MEQ/100 ML BAG IV SCH ×4 (06:29→12:38)
--- NOTE | 2019-03-31 07:02 | History and Physical Report ---
CHIEF COMPLAINT: Altered mental status for the last 6 hours. HISTORY OF PRESENT ILLNESS: A 78-year-old Chinese female brought in by family for severely altered mental status. The patient is talking, but not making any sense. Not following commands. No fever or chills. No nausea or vomiting. No meningitis-like symptoms. The patient is moving all 4 extremities, but not able to give much history. There is no vomiting. There is no syncope. CURRENT MEDICATIONS: Simvastatin 10 mg once a day, Zoloft 50 mg p.o. daily, omeprazole 20 mg once a day, clopidogrel 75 mg once a day. Metoprolol 25 mg once a day, sertraline 50 mg once a day. PAST MEDICAL HISTORY: Significant for congestive heart failure, arthritis, thyroid disorder, cardiomyopathy, hyperlipidemia, and osteoporosis. PAST SURGICAL HISTORY: Cholecystectomy done. SOCIAL HISTORY: Never a smoker. FAMILY HISTORY: Hypertension. REVIEW OF SYSTEMS: Significant for altered sensorium and noncoherent vowel sounds. Otherwise, review of systems negative. PHYSICAL EXAMINATION: GENERAL: Elderly female, cooperative during examination. Blood pressure is 139/60. During my exam, initial blood pressure was 194/82. Temperature is 98.8, pulse is 94, respirations are 18, sats are 98%. HEENT: Unremarkable. Pupils equal and reactive. NECK: Supple, no lymphadenopathy, no thyromegaly. LUNGS: Clear to auscultation and percussion. Good air entry. CARDIOVASCULAR SYSTEM: S1, S2 heard. No gallop, no murmur, no rub. Apical impulse in left fifth intercostal space in midclavicular line. ABDOMEN: Soft and benign. No hepatosplenomegaly. No guarding, no rigidity. Hernial orifices are normal. EXTREMITIES: Good pedal pulses. No pedal edema. Power is 5/5 in all 4 extremities. CENTRAL NERVOUS SYSTEM: Alert, but not oriented. Confused, talking to herself. Decreased sensorium. During my examination, her sensorium was near normal. No antibiotics were given at this point. Coronary artery disease. Continue Plavix. GERD. Continue omeprazole. Hyperlipidemia. Continue simvastatin 10 mg p.o. at bedtime. LABORATORY DATA: Significant for white count of 9700, H and H are 11.4 and 32.3, platelet count is 316,000. Protime is 0.90. Potassium is 2.3, very low. BUN and creatinine are 10 and 0.6. Sodium is 132, slightly low. Lactic acid is 4.60. AST is 49. EKG shows normal sinus rhythm, heart rate of 76 per minute, no acute ST-T wave changes, LVH criteria present. Chest x-ray shows no acute findings. No interval change from July 2018. CT head shows no evidence of acute or subacute infarct or hemorrhage. ASSESSMENT AND PLAN: 1. Acute encephalopathy, etiology unclear. We will get MRI to make sure there is no infarct. Differential diagnosis includes stroke versus infectious or metabolic or hypertensive encephalopathy. 2. Hypokalemia, orally supplemented twice and IV potassium will be given. 3. High lactic acid, possible infection. We will cover empirically. In summary, the patient has acute encephalopathy, etiology unclear, metabolic versus infectious versus uremia. Hypokalemia, supplemented. GERD. Continue antireflux medication. JOB# [id number] DORETHA/NATANAEL RODRIGUEZ
[2019-03-31] MEDS: PLAVIX PO SCH (09:11)
[2019-03-31] MEDS: K-DUR PO SCH ×3 (09:12→17:49)
[2019-03-31] MEDS: ANTIVERT PO SCH (09:12)
[2019-03-31] MEDS: ZOLOFT PO SCH (09:12)
[2019-03-31] MEDS: TOPROL XL PO SCH (09:12)
[2019-03-31] MEDS: ASPIRIN PO SCH (09:12)
[2019-03-31] MEDS: PROTONIX PO SCH (09:12)
[2019-03-31] MEDS: ROCEPHIN/NS 2 GM/100 ML 2 GM/100 ML BAG IV SCH (09:13)
[2019-03-31] MEDS: HEPARIN SUB-Q SCH ×2 (09:13→21:41)
--- NOTE | 2019-03-31 10:07 | Progress Note ---
Assessment and Plan Assessment and plan: --Metabolic encephalopathy; present on admission Multifactorial --Nonspecific elevation of troponin; Rule out acute coronary syndrome, serial cardiac enzymes Cardiology consult if needed --Hypokalemia;corrected Closely monitor electrolytes --Hyponatremia; closely monitor sodium levels Replacement therapy if needed --Dilated cardiomyopathy: ejection fraction 25% Continue anti-failure medications, consider cardiology if needed --Lactic acidosis; resolved --Hypotension; fluid bolus and supportive care --Moderate malnutrition/hypoalbuminemia Albumin 3.3, medication supplements and supportive care --Nonspecific elevation of troponins; Patient denies chest pain or shortness of breath Had extensive cardiac evaluation in the past Repeat CK-MB and troponin levels within normal limits --Dilated cardiomyopathy; continue anti-failure medications Input output monitoring low-sodium diet, and adjust fluid intake --DVT prophylaxis; Lovenox Monito Closely and adjust management as needed. Disposition; possible discharge home tomorrow if stable History Interval history: Patient seen and examined medical records reviewed Patient complains of generalized weakness Hospitalist Physical - Constitutional Vitals: Temp Pulse Resp BP Pulse Ox 98.6 F 67 20 98/49 96 03/31/19 07:23 03/31/19 07:23 03/31/19 07:23 03/31/19 07:23 03/31/19 07:23 General appearance: Present: no acute distress, well-nourished - EENT Eyes: Present: PERRL, EOM intact - Neck Neck: Present: supple, normal ROM - Respiratory Respiratory effort: normal Respiratory: bilateral: diminished, negative: rales, rhonchi, wheezing - Cardiovascular Rhythm: regular Heart Sounds: Present: S1 & S2 - Extremities Extremities: no ischemia, No edema - Abdominal General gastrointestinal: soft, non-tender, non-distended, normal bowel sounds - Integumentary Integumentary: Present: clear, warm - Psychiatric Psychiatric: appropriate mood/affect, cooperative - Neurologic Neurologic: CNII-XII intact, moves all extremities Results - Labs CBC & Chem 7: 03/30/19 11:17 03/31/19 10:18 Labs: Laboratory Last Values WBC 9.7 K/mm3 (4.5-11.0) 03/30/19 11:17 RBC 3.64 M/mm3 (3.65-5.03) L 03/30/19 11:17 Hgb 11.4 gm/dl (10.1-14.3) 03/30/19 11:17 Hct 32.3 % (30.3-42.9) 03/30/19 11:17 MCV 89 fl (79-97) 03/30/19 11:17 MCH 31 pg (28-32) 03/30/19 11:17 MCHC 35 % (30-34) H 03/30/19 11:17 RDW 14.2 % (13.2-15.2) 03/30/19 11:17 Plt Count 316 K/mm3 (140-440) 03/30/19 11:17 Lymph % (Auto) 32.5 % (13.4-35.0) 03/30/19 11:17 [place] % (Auto) 8.4 % (0.0-7.3) H 03/30/19 11:17 Eos % (Auto) 0.4 % (0.0-4.3) 03/30/19 11:17 Baso % (Auto) 0.7 % (0.0-1.8) 03/30/19 11:17 Lymph # 3.2 K/mm3 (1.2-5.4) 03/30/19 11:17 [place] # 0.8 K/mm3 (0.0-0.8) 03/30/19 11:17 Eos # 0.0 K/mm3 (0.0-0.4) 03/30/19 11:17 Baso # 0.1 K/mm3 (0.0-0.1) 03/30/19 11:17 Seg Neutrophils % 58.0 % (40.0-70.0) 03/30/19 11:17 Seg Neutrophils # 5.7 K/mm3 (1.8-7.7) 03/30/19 11:17 PT 11.9 Sec. (12.2-14.9) L 03/30/19 10:40 INR 0.90 (0.87-1.13) 03/30/19 10:40 APTT 23.4 Sec. (24.2-36.6) L 03/30/19 10:40 15.3 Sec. (15.1-19.6) 03/30/19 10:40 Sodium 132 mmol/L (137-145) L 03/30/19 10:40 Potassium 2.3 mmol/L (3.6-5.0) L* 03/30/19 10:40 Chloride 86.4 mmol/L (98-107) L 03/30/19 10:40 Carbon Dioxide 27 mmol/L (22-30) 03/30/19 10:40 21 mmol/L 03/30/19 10:40 BUN 10 mg/dL (7-17) 03/30/19 10:40 0.6 mg/dL (0.7-1.2) L 03/30/19 10:40 Estimated GFR > 60 ml/min 03/30/19 10:40 17 % 03/30/19 10:40 Glucose 143 mg/dL (65-100) H 03/30/19 10:40 POC Glucose 152 (70-105) H 03/30/19 10:45 Lactic Acid 1.50 mmol/L (0.7-2.0) 03/30/19 18:46 Calcium 8.9 mg/dL (8.4-10.2) 03/30/19 10:40 Magnesium 2.10 mg/dL (1.7-2.3) 03/30/19 10:40 0.90 mg/dL (0.1-1.2) 03/30/19 10:40 AST 49 units/L (5-40) H 03/30/19 10:40 ALT 18 units/L (7-56) 03/30/19 10:40 48 units/L (35-129) 03/30/19 10:40 29.0 umol/L (25-60) 03/30/19 11:17 200 units/L (30-135) H 03/30/19 10:40 CK-MB (CK-2) 11.7 ng/mL (0.0-4.0) H 03/30/19 10:40 CK-MB (CK-2) Rel Index 5.8 (0-4) H 03/30/19 10:40 0.072 ng/mL (0.00-0.029) H 03/30/19 10:40 7.6 g/dL (6.3-8.2) 03/30/19 10:40 4.1 g/dL (3.9-5) 03/30/19 10:40 1.2 % 03/30/19 10:40 Triglycerides 180 mg/dL (2-149) H 03/30/19 10:40 Cholesterol 188 mg/dL (50-199) 03/30/19 10:40 103 mg/dL (50-130) 03/30/19 10:40 77 mg/dL (40-59) H 03/30/19 10:40 2.44 % 03/30/19 10:40 TSH 2.880 mlU/mL (0.270-4.200) 03/30/19 10:40 Straw (Yellow) 03/30/19 11:21 Clear (Clear) 03/30/19 11:21 7.0 (5.0-7.0) 03/30/19 11:21 Ur Specific [place] 1.005 (1.003-1.030) 03/30/19 11:21 <15 mg/dl mg/dL (Negative) 03/30/19 11:21 >=500 mg/dL (Negative) 03/30/19 11:21 Neg mg/dL (Negative) 03/30/19 11:21 Mod (Negative) 03/30/19 11:21 Neg (Negative) 03/30/19 11:21 Neg (Negative) 03/30/19 11:21 < 2.0 mg/dL (<2.0) 03/30/19 11:21 Ur Leukocyte Esterase Neg (Negative) 03/30/19 11:21 1.0 /HPF (0.0-6.0) 03/30/19 11:21 6.0 /HPF (0.0-6.0) 03/30/19 11:21 Salicylates < 0.3 mg/dL (2.8-20.0) L 03/30/19 10:40 Presumptive negative 03/30/19 11:21 Presumptive negative 03/30/19 11:21 Acetaminophen 10.9 ug/mL (10.0-30.0) 03/30/19 10:40 Acetaminophen 10.9 ug/mL (10.0-30.0) 03/30/19 10:40 Ur Barbiturates Screen Presumptive negative 03/30/19 11:21 Ur Phencyclidine Scrn Presumptive negative 03/30/19 11:21 Ur Amphetamines Screen Presumptive negative 03/30/19 11:21 U Benzodiazepines Scrn Presumptive negative 03/30/19 11:21 Presumptive negative 03/30/19 11:21 U Marijuana (THC) Screen Presumptive negative 03/30/19 11:21 Disclamer 03/30/19 11:21 Plasma/Serum Alcohol < 0.01 % (0-0.07) 03/30/19 10:40 Active Medications - Current Medications Current Medications: Generic Name Dose Route Start Last Admin Trade Name Freq PRN Reason Stop Dose Admin Amlodipine Besylate 10 mg 03/31/19 10:00 Norvasc PO QDAY THAO Aspirin 325 mg 03/31/19 10:00 03/31/19 09:12 Aspirin PO 325 mg QDAY THAO Administration Clopidogrel Bisulfate 75 mg 03/31/19 10:00 03/31/19 09:11 Plavix PO 75 mg QDAY THAO Administration Diphenhydramine HCl 25 mg 03/30/19 22:49 03/30/19 23:08 Benadryl PO 25 mg QHS PRN Administration Sleep Heparin Sodium (Porcine) 5,000 unit 03/31/19 10:00 03/31/19 09:13 Heparin SUB-Q 5,000 unit Q12HR THAO Administration Potassium Chloride 10 meq in 100 mls @ 100 mls/hr 03/31/19 07:00 03/31/19 0 9:11 Kcl 10meq/100ml IV 03/31/19 10:59 100 mls/hr Q1H THAO Administration Ceftriaxone Sodium 2 gm in 100 mls @ 200 mls/hr 03/31/19 08:00 03/31/19 09:13 Rocephin/Ns 2 Gm/100 Ml IV 200 mls/hr Q24H THAO Administration Protocol Losartan Potassium 100 mg 03/31/19 10:00 Cozaar PO QDAY THAO Meclizine HCl 25 mg 03/31/19 10:00 03/31/19 09:12 Antivert PO 25 mg QDAY THAO Administration Metoprolol Succinate 25 mg 03/31/19 10:00 03/31/19 09:12 Toprol Xl PO 25 mg DAILY THAO Administration Pantoprazole Sodium 20 mg 03/31/19 10:00 03/31/19 09:12 Protonix PO 20 mg QDAY THAO Administration Potassium Chloride 40 meq 03/31/19 08:00 03/31/19 09:12 K-Dur PO 03/31/19 16:01 40 meq Q4H THAO Administration Pravastatin Sodium 20 mg 03/31/19 22:00 Pravachol PO QHS THAO Sertraline HCl 50 mg 03/31/19 10:00 03/31/19 09:12 Zoloft PO 50 mg QDAY THAO Administration Sodium Chloride 10 ml 03/30/19 22:45 Sodium Chloride Flush Syringe 10 Ml IV PRN PRN LINE FLUSH
[2019-03-31] MEDS: NORVASC PO SCH (10:24)
[2019-03-31] MEDS: COZAAR PO SCH (10:24)
[2019-03-31 10:46] LABS: Creatine Kinase MB 6.2 ng/mL (0.0-4.0)
[2019-03-31 10:48] LABS: Alanine Aminotransferase 16 units/L (7-56); Albumin 3.3 g/dL (3.9-5); BUN/Creatinine Ratio 13; Blood Urea Nitrogen 8 mg/dL (7-17); Calcium 7.7 mg/dL (8.4-10.2); Hemolysis Index 6
[2019-03-31] MEDS ORDERED: PRAVACHOL PO SCH (22:00)
--- NOTE | 2019-03-31 22:03 | Consultation ---
History of Present Illness Consult date: 03/31/19 Reason for Consult: Altered mental status Chief complaint: Altered mental status History of present illness: Patient is a 78 y/o woman w/ a h/o lipidemia, osteoporosis, cardiomyopathy, CHF, hypertension. She presented yesterday morning with altered mental status. She was last seen well the night before, and upon awakening in the morning was noted to be confused by family members. During the course of this admission, patient was found to have elevated lactic acid, and decreased potassium levels. These both have improved since admission. Patient's mental status is also improved since admission, and is now felt to be back at baseline per her daughter. Past History Past Medical History: hypertension, hyperlipidemia, other (osteoporosis, CHF, cardiomyopathy) Social history: no significant social history, , lives with family Family history: no significant family history Medications and Allergies Allergies Allergy/AdvReac Type Severity Reaction Status Date / Time No Known Allergies Allergy Verified 01/16/16 22:10 Home Medications Medication Instructions Recorded Confirmed Last Taken Type Clopidogrel [Plavix] 75 mg PO QDAY 30 Days #30 tablet 08/04/18 03/30/19 03/30/19 Rx Metoprolol Xl [Metoprolol 25 mg PO DAILY #30 tablet 08/04/18 03/30/19 03/30/19 Rx SUCCINATE ER TAB] Clopidogrel [Plavix] 75 mg PO QDAY 03/30/19 03/30/19 03/29/19 History Meclizine [Antivert] 25 mg PO QDAY 03/30/19 03/30/19 03/09/19 History Omeprazole 20 mg PO QDAY 03/30/19 03/30/19 03/16/19 History Sertraline [Zoloft] 50 mg PO QDAY 03/30/19 03/30/19 03/29/19 History Simvastatin 10 mg PO QHS 03/30/19 03/30/19 03/29/19 History metroNIDAZOLE [Flagyl] 500 mg PO Q12HR 03/30/19 03/30/19 03/29/19 History Active Meds: Active Medications Amlodipine Besylate (Norvasc) 10 mg PO QDAY [facility] Last Admin: 03/31/19 10:24 Dose: Not Given Documented by: Aspirin (Aspirin) 325 mg PO QDAY [facility] Last Admin: 03/31/19 09:12 Dose: 325 mg Documented by: Clopidogrel Bisulfate (Plavix) 75 mg PO QDAY [facility] Last Admin: 03/31/19 09:11 Dose: 75 mg Documented by: Diphenhydramine HCl (Benadryl) 25 mg PO QHS PRN PRN Reason: Sleep Last Admin: 03/30/19 23:08 Dose: 25 mg Documented by: Heparin Sodium (Porcine) (Heparin) 5,000 unit SUB-Q Q12HR [facility] Last Admin: 03/31/19 21:41 Dose: 5,000 unit Documented by: Ceftriaxone Sodium (Rocephin/Ns 2 Gm/100 Ml) 2 gm in 100 mls @ 200 mls/hr IV Q24H [facility]; Protocol Last Admin: 03/31/19 09:13 Dose: 200 mls/hr Documented by: Sodium Chloride (Nacl 0.9% 250ml) 250 mls @ 75 mls/hr IV ONCE ONE Stop: 04/01/19 01:36 Last Admin: 03/31/19 21:32 Dose: 75 mls/hr Documented by: Losartan Potassium (Cozaar) 100 mg PO QDAY [facility] Last Admin: 03/31/19 10:24 Dose: Not Given Documented by: Meclizine HCl (Antivert) 25 mg PO QDAY [facility] Last Admin: 03/31/19 09:12 Dose: 25 mg Documented by: Metoprolol Succinate (Toprol Xl) 25 mg PO DAILY [facility] Last Admin: 03/31/19 09:12 Dose: 25 mg Documented by: Pantoprazole Sodium (Protonix) 20 mg PO QDAY [facility] Last Admin: 03/31/19 09:12 Dose: 20 mg Documented by: Pravastatin Sodium (Pravachol) 20 mg PO QHS [facility] Last Admin: 03/31/19 21:32 Dose: 20 mg Documented by: Sertraline HCl (Zoloft) 50 mg PO QDAY [facility] Last Admin: 03/31/19 09:12 Dose: 50 mg Documented by: Sodium Chloride (Sodium Chloride Flush Syringe 10 Ml) 10 ml IV PRN PRN PRN Reason: LINE FLUSH Last Admin: 03/31/19 21:33 Dose: 10 ml Documented by: Review of Systems All systems: negative Neurological: confusion Physical Examination - Vital Signs Vital Signs: Vital Signs Pulse Resp BP Pulse Ox 94 H 17 194/82 100 03/30/19 11:00 03/30/19 11:00 03/30/19 11:00 03/30/19 11:00 - Constitutional General appearance: comfortable - EENT EENT: Present: ATNC, PERRL, mucous membranes moist, hearing intact, vision intact - Respiratory Respiratory: Present: lungs clear, normal breath sounds - Cardiovascular Cardiovascular: Present: regular rate, normal S1, normal S2 Extremities: Present: no peripheral edema bilatateraly, no clubbing, cyanosis - Gastrointestinal Gastrointestinal: Present: normoactive bowel sounds, soft, non-tender - Integumentary Integumentary: Present: normal - Neurologic Cranial nerve examination: PERRL, EOMI, VFF, ptosis, V1/V2/V3 grossly intact, face symmetric, tongue midline, intact shoulder shrug, other (patient alert, awake, oriented to month, year, location, follows complex commands.) Speech examination: intact Sensorimotor examination: intact Detailed motor examination: full strength in all julius Motor examination - right side: 5/5: biceps, triceps, wrist flexion, wrist extension, financial sales associate, hip flexors, knee extensors, dorsiflexion, toe extension (EHL), plantarflexion Motor examination - left side: 5/5: biceps, triceps, wrist flexion, wrist extension, financial sales associate, hip flexors, knee extensors, dorsiflexion, toe extension (EHL), plantarflexion Detailed sensory examination: intact, light touch Reflexes: 2+: ankle, bicep, knee, tricep Cerebellar examination: other (b/l intact to FTN and HTS) - Musculoskeletal Musculoskeletal: Present: no fluid collection, no pain, normal range of motion - Psychiatric Psychiatric: Present: mood/affect appropriate Results - Laboratory Findings CBC and BMP: 03/30/19 11:17 03/31/19 10:18 Abnormal Lab Findings: Abnormal Labs 03/30/19 03/30/19 03/30/19 10:40 10:40 10:40 RBC MCHC Graham % (Auto) PT 11.9 L APTT 23.4 L Sodium 132 L Potassium 2.3 L* Chloride 86.4 L Creatinine 0.6 L Glucose 143 H POC Glucose Lactic Acid Calcium AST 49 H Total Creatine Kinase 200 H CK-MB (CK-2) 11.7 H CK-MB (CK-2) Rel Index 5.8 H Troponin T 0.072 H Total Protein Albumin Triglycerides 180 H HDL Cholesterol 77 H Salicylates < 0.3 L 03/30/19 03/30/19 03/30/19 10:40 10:45 11:17 RBC 3.64 L MCHC 35 H Graham % (Auto) 8.4 H PT APTT Sodium Potassium Chloride Creatinine Glucose POC Glucose 152 H Lactic Acid 4.60 H* Calcium AST Total Creatine Kinase CK-MB (CK-2) CK-MB (CK-2) Rel Index Troponin T Total Protein Albumin Triglycerides HDL Cholesterol Salicylates 03/30/19 03/30/19 03/30/19 14:07 15:15 17:37 RBC MCHC Graham % (Auto) PT APTT Sodium Potassium Chloride Creatinine Glucose POC Glucose Lactic Acid 2.40 H* 2.40 H* 2.50 H* Calcium AST Total Creatine Kinase CK-MB (CK-2) CK-MB (CK-2) Rel Index Troponin T Total Protein Albumin Triglycerides HDL Cholesterol Salicylates 03/31/19 10:18 RBC MCHC Graham % (Auto) PT APTT Sodium 132 L Potassium Chloride 94.6 L Creatinine 0.6 L Glucose 187 H POC Glucose Lactic Acid Calcium 7.7 L AST 43 H Total Creatine Kinase 224 H CK-MB (CK-2) 6.2 H CK-MB (CK-2) Rel Index Troponin T Total Protein 5.9 L D Albumin 3.3 L Triglycerides HDL Cholesterol Salicylates Assessment and Plan Patient is a 78 y/o woman w/ a h/o lipidemia, osteoporosis, cardiomyopathy, CHF, hypertension, who presented with altered mental status yesterday morning. According the patient's clinical findings, it is likely that her altered mental status was due to metabolic encephalopathy. Patient's mental status has improved during the course of admission, and she is now returned to baseline of mental status per her daughter. Contributing metabolic factors that may have caused encephalopathy may be lactic acidosis which is now resolved. Additionally, patient takes sertraline for depression, and as it is possible that she may have taken too much of her medication. Her daughter states that she has taken too much medication in the past mistakenly. I emphasized to the daughter the importance of having family closely monitor her medication intake in order to avoid taking too much or too little. Plan: 1. Metabolic encephalopathy: - now resolved per daughter. Patient back to baseline. - Likely in setting of lactic acidosis. Etiology of lactic acidosis and hypokalemia uncertain at this time. - Possibility of taking too much or too little of home medications. I emphasized to the daughter the importance of having family closely monitor her medication intake in order to avoid taking too much or too little. - Would not recommend further neurologic investigations at this point, as patient has now returned to baseline of mental status. -As patient is now back to baseline of mental status, will sign off. Please call with any questions, or if patient's mental status worsens once again. Carlos Arana MD Neurology
[2019-03-31] MEDS ORDERED: NACL 0.9% 250ML 250 ML IV ONE (22:17)
[2019-04-01 08:53] VITALS: BP 108/43
[2019-04-01] MEDS: ROCEPHIN/NS 2 GM/100 ML 2 GM/100 ML BAG IV SCH (09:57)
[2019-04-01] MEDS: ASPIRIN PO SCH (09:57)
[2019-04-01] MEDS: PLAVIX PO SCH (09:57)
[2019-04-01] MEDS: ANTIVERT PO SCH (09:57)
[2019-04-01] MEDS: PROTONIX PO SCH (09:57)
[2019-04-01] MEDS: ZOLOFT PO SCH (09:58)
[2019-04-01] MEDS: HEPARIN SUB-Q SCH (09:58)
[2019-04-01] MEDS: TOPROL XL PO SCH (09:58)
[2019-04-01] MEDS: COZAAR PO SCH (09:59)
[2019-04-01] MEDS: NORVASC PO SCH (09:59)
--- NOTE | 2019-04-01 11:33 | Discharge Summary ---
Providers - Providers Date of Admission: 03/31/19 13:30 Date of discharge: 04/01/19 Attending physician: NED ROMERO 03/30/19 Consult to Physician [CONS] Stat Comment: spoke to natali/ abran Consulting Provider: TRICIA CHEN Physician Instructions: Reason For Exam: suspected stroke 03/30/19 22:45 Physical Therapy Evaluation and Treat [CONS] Routine Comment: Reason For Exam: Debility 03/30/19 22:46 Occupational Therapy Evaluate and Treat [CONS] Routine Comment: Reason For Exam: Neuro deficits Physical Therapy Evaluation and Treat [CONS] Routine Comment: Reason For Exam: Neuro deficits Primary care physician: BINGO CASHIER Hospitalization Condition: Fair Disposition: DC/[place]-06 HOME [facility] Time spent for discharge: 32 min Core Measure Documentation - Palliative Care Palliative Care/ Comfort Measures: Not Applicable - Core Measures Any of the following diagnoses?: none Exam - Constitutional Vitals: Temp Pulse Resp BP Pulse Ox 97.9 F 71 18 108/43 99 04/01/19 07:49 04/01/19 07:49 04/01/19 07:49 04/01/19 07:49 04/01/19 07:49 Plan Activity: advance as tolerated, fall precautions Diet: other (cardiac diet) Additional Instructions: Your BP in the lower range,Do not take BP medications. Check with PMD for further instructions about BP meds. Fall precautions Follow up with: PRIMARY CAREMD [Primary Care Provider] - 3-5 Days
== END 2019-04-01 13:28 | disposition home health service (06) | DRG 71 ==
LOC: ED 10:28 → 2B-ACE 12:24 → OBSVTOIN 03-31 13:30
PROVIDERS: ADMIT Internal Medicine; ATTEND Internal Medicine
DX: G93.41 Metabolic encephalopathy (principal); I42.0 Dilated cardiomyopathy; E87.1 Hypo-osmolality and hyponatremia; E44.0 Moderate protein-calorie malnutrition; E87.2 Acidosis; Z68.1 Body mass index [BMI] 19.9 or less, adult; I95.9 Hypotension, unspecified; E87.6 Hypokalemia; M81.0 Age-related osteoporosis without current pathological fracture; I11.0 Hypertensive heart disease with heart failure; I50.9 Heart failure, unspecified; M19.90 Unspecified osteoarthritis, unspecified site; K21.9 Gastro-esophageal reflux disease without esophagitis; F32.9 Major depressive disorder, single episode, unspecified; Z79.899 Other long term (current) drug therapy; Z90.49 Acquired absence of other specified parts of digestive tract; Z82.49 Family history of ischemic heart disease and other diseases of the circulatory system
CPT/HCPCS: 36415; 70450; 71045; 80053; 80061; 80307; 80320; 81001; 82140; 82550; 82553; 82962; 83735; 84443; 84484; 85025; 85610; 85670; 85730; 87040; 87086; 87116; 93005; 93010; 96374; G0378; A9270-GY; G0480; J0696; J1644; J2250; J3480; J7050

== ENCOUNTER 2019-09-29 11:30 | Emergency (ER) | payer MEDICARE ==
--- NOTE | 2019-09-29 11:48 | Event Note ---
ED Screening Note Date of service: 09/29/19 Time: 11:42 ED Screening Note: 79 y o female presents s/p fall from bed this am hitting head on floor cc of Estrada and nausea usually ambulatory MEDS: plavix denies pain but admits nausea This initial assessment/diagnostic orders/clinical plan/treatment(s) is/are subject to change based on patients health status, clinical progression and re- assessment by fellow clinical providers in the ED. Further treatment and workup at subsequent clinical providers discretion. Patient/guardian urged not to elope from the ED as their condition may be serious if not clinically assessed and managed. Initial orders include: CT main side eval
--- NOTE | 2019-09-29 11:54 | Event Note ---
ED Screening Note Date of service: 09/29/19 (t) Time: 11:48 ED Screening Note: 79n y o female presenst with zuniga and nausea s/p fall off bed at 2am hitting head on floor MEDs: plavix This initial assessment/diagnostic orders/clinical plan/treatment(s) is/are subject to change based on patients health status, clinical progression and re- assessment by fellow clinical providers in the ED. Further treatment and workup at subsequent clinical providers discretion. Patient/guardian urged not to elope from the ED as their condition may be serious if not clinically assessed and managed. Initial orders include: CT head main eval
--- NOTE | 2019-09-29 12:28 | Cat Scan Report ---
NONENHANCED CT SCAN OF THE HEAD: INDICATION / CLINICAL INFORMATION: 79 years Female; headaches. TECHNIQUE: Routine CT head without contrast. All CT scans at this location are performed using CT dos e reduction for ALARA by means of automated exposure control. COMPARISON: CT scan of the head from 03/30/2019 and 08/02/2018 FINDINGS: BRAIN / INTRACRANIAL CONTENTS: No acute hemorrhage, mass effect, midline shift, hydrocephalus, or ac joao, large territorial infarct. No chronic infarct or focal area of encephalomalacia. Extracerebral s pace is prominent bifrontally due to involution. As seen in the previous imaging studies, senescent b lissy ganglia calcification is seen. Periventricular matter low attenuation seen due to microvascular faint angiopathy. CT findings remain unchanged. High convexity cortical sulci are normal. CRANIOCERVICAL JUNCTION: No significant abnormality. ORBITS: No significant abnormality of visualized orbits. SINUSES / MASTOIDS: No significant abnormality of the visualized paranasal sinuses or mastoid air enhemias ls. ADDITIONAL FINDINGS: None. IMPRESSION: No acute parenchymal lesion in the brain Signer Name: Nikole Covington MD Signed: 09/29/2019 12:23 PM Workstation Name: [id number]
[2019-09-29] MEDS ORDERED: ACETAMINOPHEN 325 MG TAB PO ONE (12:52)
--- NOTE | 2019-09-29 12:56 | Emergency Department Report ---
ED Head Trauma HPI - General Chief complaint: Fall Stated complaint: FALL Time Seen by Provider: 09/29/19 12:37 Source: patient, family Mode of arrival: Wheelchair Limitations: Language Barrier - History of Present Illness Initial comments: 79 yo F presents to ED w/ complaint of headache. Daughter reports patient fell out of the bed at approximately 2 AM this morning. Patient reported that she was having a bad dream where someone was chasing her and she was running away from them. Patient then fell out of the bed, hitting her head. She reports m ild headache currently. Denies nausea or vomiting. Patient on plavix. Complaint: head injury, fall -: This morning (at 2 am) Mechanism of Injury: mechanical fall Loss of Consciousness: unsure Place: home Severity: moderate Consistency: constant Other Injuries: none Context: on other anticoagulant Associated Symptoms: denies: nausea, vomiting - Related Data Home Medications Medication Instructions Recorded Confirmed Last Taken Clopidogrel [Plavix] 75 mg PO QDAY 03/30/19 03/30/19 03/29/19 Meclizine [Antivert] 25 mg PO QDAY 03/30/19 03/30/19 03/09/19 Omeprazole 20 mg PO QDAY 03/30/19 03/30/19 03/16/19 Sertraline [Zoloft] 50 mg PO QDAY 03/30/19 03/30/19 03/29/19 Simvastatin 10 mg PO QHS 03/30/19 03/30/19 03/29/19 metroNIDAZOLE [Flagyl TAB] 500 mg PO Q12HR 03/30/19 03/30/19 03/29/19 Previous Rx's Medication Instructions Recorded Last Taken Type Clopidogrel [Plavix] 75 mg PO QDAY 30 Days #30 tablet 08/04/18 03/30/19 Rx Allergies/Adverse reactions: Allergies Allergy/AdvReac Type Severity Reaction Status Date / Time No Known Allergies Allergy Verified 01/16/16 22:10 ED Review of Systems ROS: Stated complaint: FALL Other details as noted in HPI Comment: All other systems reviewed and negative Gastrointestinal: denies: nausea, vomiting Neurological: headache. denies: weakness, numbness, paresthesias ED Past Medical Hx - Past Medical History Hx Hypertension: Yes (cardiomyopathy of 25-30%) Hx Congestive Heart Failure: Yes Hx Arthritis: Yes Additional medical history: Thyroid, Osteoporosis, Cardiomypathy, hyperlipidemia - Surgical History Past Surgical History?: Yes Hx Cholecystectomy: Yes - Social History Smoking Status: Never Smoker Substance Use Type: None - Medications Home Medications: Home Medications Medication Instructions Recorded Confirmed Last Taken Type Clopidogrel [Plavix] 75 mg PO QDAY 30 Days #30 tablet 08/04/18 03/30/19 03/30/19 Rx Clopidogrel [Plavix] 75 mg PO QDAY 03/30/19 03/30/19 03/29/19 History Meclizine [Antivert] 25 mg PO QDAY 03/30/19 03/30/19 03/09/19 History Omeprazole 20 mg PO QDAY 03/30/19 03/30/19 03/16/19 History Sertraline [Zoloft] 50 mg PO QDAY 03/30/19 03/30/19 03/29/19 History Simvastatin 10 mg PO QHS 03/30/19 03/30/19 03/29/19 History metroNIDAZOLE [Flagyl TAB] 500 mg PO Q12HR 03/30/19 03/30/19 03/29/19 History ED Physical Exam - General Limitations: Language Barrier General appearance: alert, in no apparent distress - Head Head exam: Present: atraumatic, normocephalic - Eye Eye exam: Present: normal appearance, PERRL, EOMI - ENT ENT exam: Present: mucous membranes moist - Neck Neck exam: Present: normal inspection, full ROM. Absent: tenderness - Respiratory Respiratory exam: Present: normal lung sounds bilaterally. Absent: respiratory distress - Cardiovascular Cardiovascular Exam: Present: regular rate, normal rhythm - GI/Abdominal GI/Abdominal exam: Present: soft. Absent: distended, tenderness - Extremities Exam Extremities exam: Present: normal inspection, full ROM - Neurological Exam Neurological exam: Present: alert, oriented X3. Absent: CN II-XII intact, motor sensory deficit - Psychiatric Psychiatric exam: Present: normal affect, normal mood - Skin Skin exam: Present: warm, dry, intact, normal color ED Course Vital Signs 09/29/19 09/29/19 09/29/19 11:46 12:42 13:09 Temperature 98.4 F Pulse Rate 102 H 97 H 100 H Respiratory 16 17 16 Rate Blood Pressure 156/45 Blood Pressure 155/72 143/82 [Left] O2 Sat by Pulse 97 998 H 97 Oximetry - Radiology Data Radiology results: report reviewed, image reviewed - Medical Decision Making - CT Head negative - reports mild LEE - no neuro deficits, pt at baseline - outpt f/u advised; return precautions given - Differential Diagnosis concussion, intracranial bleed Critical care attestation.: If time is entered above; I have spent that time in minutes in the direct care of this critically ill patient, excluding procedure time. ED Disposition Clinical Impression: Acute head injury Disposition: DC-01 TO HOME OR SELFCARE Is pt being admited?: No Condition: Stable Instructions: Minor Head Injury (ED) Referrals: PRIMARY CARE, [Primary Care Provider] - 3-5 Days Time of Disposition: 12:59
[2019-09-29 13:10] VITALS: BP 143/82
== END 2019-09-29 13:12 | disposition home or self-care (01) ==
LOC: ED 11:30
DX: S09.90XA Unspecified injury of head, initial encounter (principal); I11.0 Hypertensive heart disease with heart failure; I50.9 Heart failure, unspecified; M19.90 Unspecified osteoarthritis, unspecified site; E78.5 Hyperlipidemia, unspecified; Z90.49 Acquired absence of other specified parts of digestive tract; Z79.899 Other long term (current) drug therapy; W06.XXXA Fall from bed, initial encounter; Y93.89 Activity, other specified; Y92.89 Other specified places as the place of occurrence of the external cause; Y99.8 Other external cause status
CPT/HCPCS: 70450

== ENCOUNTER 2020-08-30 12:45 | Observation (INO) | payer MEDICARE ==
--- NOTE | 2020-08-30 14:27 | Event Note ---
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 Further treatment and workup at subsequent clinical providers discretion. Patient/guardian urged not to elope from the ED as their condition may be serious if not clinically assessed and managed. Initial orders include: ro acs
--- NOTE | 2020-08-30 15:22 | XRay Report ---
CHEST 2 VIEWS INDICATION / CLINICAL INFORMATION: Chest Pain. COMPARISON: 03/30/2019 FINDINGS: SUPPORT DEVICES: None. HEART / MEDIASTINUM: No significant abnormality. LUNGS / PLEURA: Chronic interstitial changes. No acute pulmonary parenchymal or pleural abnormality. No pneumothorax. ADDITIONAL FINDINGS: No significant additional findings. IMPRESSION: 1. No acute findings. Signer Name: Kyle Vieira MD Signed: 08/30/2020 3:18 PM Workstation Name: [id number]
[2020-08-30 15:30] LABS: Basophils % (Auto) 0.5 % (0.0-1.8); Eosinophils # (Auto) 0.1 K/mm3 (0.0-0.4); Hemoglobin 10.9 gm/dl (10.1-14.3); Mean Corpuscular HGB Conc 35 % (30-34); Mean Corpuscular Volume 91 fl (79-97); Monocytes # (Auto) 0.7 K/mm3 (0.0-0.8); Monocytes % (Auto) 7.7 % (0.0-7.3); Platelet Count 333 K/mm3 (140-440); Red Cell Distribution Width 13.2 % (13.2-15.2)
[2020-08-30 15:41] LABS: INR 0.95 (0.87-1.13)
[2020-08-30 15:42] LABS: Partial Thromboplastin Time 26.6 Sec. (24.2-36.6)
[2020-08-30 15:45] LABS: Alanine Aminotransferase 21 units/L (7-56); Albumin 4.2 g/dL (3.9-5); BUN/Creatinine Ratio 20; Blood Urea Nitrogen 16 mg/dL (7-17); Calcium 9.5 mg/dL (8.4-10.2); Hemolysis Index 1
--- NOTE | 2020-08-30 18:43 | Emergency Department Report ---
ED Chest Pain HPI - General Chief Complaint: Chest Pain Stated Complaint: DIZZY/SHORTNESS OF BREATH Time Seen by Provider: 08/30/20 14:26 Source: patient, family Mode of arrival: Wheelchair Limitations: Physical Limitation - History of Present Illness Initial Comments: Patient is 80 years old Montenegrin female, translation by her daughter. Patient with past medical history of hypertension and congestive heart failure. Patient presented to the ER accompanied by her daughter. Daughter stated that her mother has been complaining of chest pain and shortness of breath since last night. Mother describes her chest pain as heaviness comes and goes. Patient denied any cough or fever. No abdominal pain, nausea or vomiting. MD Complaint: chest pain -: Last night Onset: during rest Pain Location: substernal Pain Radiation: none Severity: moderate Quality: tightness, heaviness Consistency: intermittent - Related Data Home Medications Medication Instructions Recorded Confirmed Last Taken Clopidogrel [Plavix] 75 mg PO QDAY 03/30/19 03/30/19 03/29/19 Meclizine [Antivert] 25 mg PO QDAY 03/30/19 03/30/19 03/09/19 Omeprazole 20 mg PO QDAY 03/30/19 03/30/19 03/16/19 Sertraline [Zoloft] 50 mg PO QDAY 03/30/19 03/30/19 03/29/19 Simvastatin 10 mg PO QHS 03/30/19 03/30/19 03/29/19 metroNIDAZOLE [Flagyl TAB] 500 mg PO Q12HR 03/30/19 03/30/19 03/29/19 Previous Rx's Medication Instructions Recorded Last Taken Type Clopidogrel [Plavix] 75 mg PO QDAY 30 Days #30 tablet 08/04/18 03/30/19 Rx Allergies Allergy/AdvReac Type Severity Reaction Status Date / Time No Known Allergies Allergy Verified 01/16/16 22:10 Heart Score - HEART Score History: Moderately suspicious EKG: Non-specific Age: > 65 Risk factors: > 3 risk factors or hx of atherosclerotic disease Troponin: < normal limit HEART Score: 6 - Critical Actions Critical Actions: 4-6 pts:12-16.6% risk of adverse cardiac event. Should be admitted ED Review of Systems ROS: Stated complaint: DIZZY/SHORTNESS OF BREATH Other details as noted in HPI Comment: All other systems reviewed and negative Constitutional: denies: chills, fever Respiratory: shortness of breath, SOB with exertion, SOB at rest. denies: cough, orthopnea, wheezing Cardiovascular: chest pain. 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%) Hx Congestive Heart Failure: Yes Hx Arthritis: Yes Additional medical history: Thyroid, Osteoporosis, Cardiomypathy, hyperlipidemia - Surgical History Hx Cholecystectomy: Yes - Social History Smoking Status: Never Smoker Substance Use Type: None - Medications Home Medications: Home Medications Medication Instructions Recorded Confirmed Last Taken Type Clopidogrel [Plavix] 75 mg PO QDAY 30 Days #30 tablet 08/04/18 03/30/19 03/30/19 Rx Clopidogrel [Plavix] 75 mg PO QDAY 03/30/19 03/30/19 03/29/19 History Meclizine [Antivert] 25 mg PO QDAY 03/30/19 03/30/19 03/09/19 History Omeprazole 20 mg PO QDAY 03/30/19 03/30/19 03/16/19 History Sertraline [Zoloft] 50 mg PO QDAY 03/30/19 03/30/19 03/29/19 History Simvastatin 10 mg PO QHS 03/30/19 03/30/19 03/29/19 History metroNIDAZOLE [Flagyl TAB] 500 mg PO Q12HR 03/30/19 03/30/19 03/29/19 History ED Physical Exam - General Limitations: Physical Limitation General appearance: alert, in no apparent distress - Head Head exam: Present: atraumatic, normocephalic, normal inspection - Eye Eye exam: Present: normal appearance - ENT ENT exam: Present: normal exam, normal orophraynx, mucous membranes moist - Neck Neck exam: Present: normal inspection, full ROM. Absent: tenderness, meningismus, lymphadenopathy, thyromegaly - Respiratory Respiratory exam: Present: normal lung sounds bilaterally - Cardiovascular Cardiovascular Exam: Present: regular rate, normal rhythm, normal heart sounds - GI/Abdominal GI/Abdominal exam: Present: soft, normal bowel sounds. Absent: distended, tenderness, guarding, rebound, rigid, organomegaly, mass, bruit, pulsatile mass, hernia - Extremities Exam Extremities exam: Present: normal inspection, full ROM, normal capillary refill - Back Exam Back exam: Present: normal inspection, full ROM. Absent: CVA tenderness (R), CVA tenderness (L) - Neurological Exam Neurological exam: Present: alert, oriented X3, CN II-XII intact - Psychiatric Psychiatric exam: Present: normal mood - Skin Skin exam: Present: warm, intact, normal color ED Course Vital Signs 08/30/20 13:21 Temperature 97.8 F Pulse Rate 82 Respiratory 18 Rate Blood Pressure 103/52 O2 Sat by Pulse 95 Oximetry SHAMEKA score - Shameka Score Age > 65: (1) Yes Aspirin use within the Past 7 Days: (1) Yes 3 or more CAD Risk Factors: (1) Yes 2 or more Angina events in past 24 hrs: (0) No Known CAD with more than 50% Stenosis: (0) No Elevated Cardiac Markers: (0) No ST Deviation Greater than 0.5mm: (0) No SHAMEKA Score: 3 ED Medical Decision Making - Lab Data Result diagrams: 08/30/20 15:09 08/30/20 15:09 - EKG Data -: EKG Interpreted by Sc EKG shows normal: sinus rhythm Rate: normal - EKG Data Interpretation: no acute changes - Radiology Data Radiology results: report reviewed - Medical Decision Making Patient is 80 years old [place]ene[place] female, translation by her daughter. Patient with past medical history of hypertension and congestive heart failure. Patient presented to the ER accompanied by her daughter. Daughter stated that her mother has been complaining of chest pain and shortness of breath since last night. Mother describes her chest pain as heaviness comes and goes. Patient d enied any cough or fever. No abdominal pain, nausea or vomiting. EKG showed sinus rhythm with no ST elevation. Chest x-ray is unremarkable. Labs reviewed and is unremarkable including first troponin. Patient received aspirin. I discussed the patient with , He agreed to admit the patient to medical service for further management. Critical care attestation.: If time is entered above; I have spent that time in minutes in the direct care of this critically ill patient, excluding procedure time. ED Disposition Clinical Impression: Acute chest pain Disposition: OP ADMIT IP TO THIS HOSP Is pt being admited?: Yes Condition: Stable Instructions: Chest Pain (ED) Referrals: REN HICKS PA [Primary Care Provider] - 3-5 Days
--- NOTE | 2020-08-30 23:40 | History and Physical Report ---
History of Present Illness Date of examination: 08/30/20 Date of admission: 08/30/20 19:24 Chief complaint: Chest pain since last night History of present illness: - History of Present Illness Initial Comments: 80-year-old [place] female with history of hypertension and congestive heart failure comes in for chest pain and shortness of breath since last night. Chest pain is described as a heaviness which comes and goes. No cough and fever. No exposure to coronavirus. No exacerbating or relieving factors. History was limited because of language barrier. Heart Score - HEART Score History: Moderately suspicious EKG: Non-specific Age: > 65 Risk factors: > 3 risk factors or hx of atherosclerotic disease Troponin: < normal limit HEART Score: 6 - Critical Actions Critical Actions: 4-6 pts:12-16.6% risk of adverse cardiac event. Should be admitted - Past Medical History --Hypertension: Yes (cardiomyopathy of 25-30%) --Congestive Heart Failure: Yes --Arthritis: Yes Additional medical history: Thyroid, Osteoporosis, Cardiomypathy, hyperlipidemia - Surgical History --Cholecystectomy: Yes - Social History --Smoking Status: Never Smoker --Substance Use Type: None - Medications Home Medications: Home Medications Medication Instructions Recorded Confirmed Last Taken Type Clopidogrel [Plavix] 75 mg PO QDAY 30 Days #30 tablet 08/04/18 03/30/19 03/30/19 Rx Clopidogrel [Plavix] 75 mg PO QDAY 03/30/19 03/30/19 03/29/19 History Meclizine [Antivert] 25 mg PO QDAY 03/30/19 03/30/19 03/09/19 History Omeprazole 20 mg PO QDAY 03/30/19 03/30/19 03/16/19 History Sertraline [Zoloft] 50 mg PO QDAY 03/30/19 03/30/19 03/29/19 History Simvastatin 10 mg PO QHS 03/30/19 03/30/19 03/29/19 History metroNIDAZOLE [Flagyl TAB] 500 mg PO Q12HR 03/30/19 03/30/19 03/29/19 History Review of Systems ROS: Stated complaint: DIZZY/SHORTNESS OF BREATH Other details as noted in HPI Comment: All other systems reviewed and negative Constitutional: denies: chills, fever Respiratory: shortness of breath, SOB with exertion, SOB at rest. denies: cough, orthopnea, wheezing Cardiovascular: chest pain. denies: palpitations Gastrointestinal: denies: abdominal pain, nausea, vomiting Neurological: denies: headache, weakness Medications and Allergies Allergies Allergy/AdvReac Type Severity Reaction Status Date / Time No Known Allergies Allergy Verified 01/16/16 22:10 Home Medications Medication Instructions Recorded Confirmed Last Taken Type Clopidogrel [Plavix] 75 mg PO QDAY 30 Days #30 tablet 08/04/18 03/30/19 03/30/19 Rx Clopidogrel [Plavix] 75 mg PO QDAY 03/30/19 03/30/19 03/29/19 History Meclizine [Antivert] 25 mg PO QDAY 03/30/19 03/30/19 03/09/19 History Omeprazole 20 mg PO QDAY 03/30/19 03/30/19 03/16/19 History Sertraline [Zoloft] 50 mg PO QDAY 03/30/19 03/30/19 03/29/19 History Simvastatin 10 mg PO QHS 03/30/19 03/30/19 03/29/19 History metroNIDAZOLE [Flagyl TAB] 500 mg PO Q12HR 03/30/19 03/30/19 03/29/19 History Exam - Constitutional Vitals: Temp Pulse Resp BP Pulse Ox 97.8 F 90 18 100/60 100 08/30/20 22:27 08/30/20 22:27 08/30/20 22:27 08/30/20 22:27 08/30/20 22:27 General appearance: Present: no acute distress, well-nourished - EENT Eyes: Present: PERRL ENT: hearing intact, clear oral mucosa - Neck Neck: Present: supple, normal ROM - Respiratory Respiratory effort: normal Respiratory: bilateral: CTA - Cardiovascular Heart rate: 78 Rhythm: regular Heart Sounds: Present: S1 & S2. Absent: rub, click - Extremities Extremities: pulses symmetrical, No edema Peripheral Pulses: within normal limits - Abdominal General gastrointestinal: Present: soft, non-tender, non-distended, normal bowel sounds Female genitourinary: Present: normal - Integumentary Integumentary: Present: clear, warm, dry - Musculoskeletal Musculoskeletal: gait normal, strength equal bilaterally - Psychiatric Psychiatric: appropriate mood/affect, intact judgment & insight - Neurologic Neurologic: CNII-XII intact, moves all extremities - Allied Health Allied health notes reviewed: nursing, case management HEART Score - HEART Score EKG: Non-specific Age: > 65 Risk factors: > 3 risk factors or hx of atherosclerotic disease Troponin: Troponin T < 0.010 ng/mL (0.00-0.029) 08/30/20 19:53 Troponin: < normal limit - Critical Actions Critical Actions: 4-6 pts:12-16.6% risk of adverse cardiac event. Should be admitted Results - Labs CBC & Chem 7: 08/30/20 15:09 08/30/20 15:09 Labs: Laboratory Last Values WBC 8.7 K/mm3 (4.5-11.0) 08/30/20 15:09 RBC 3.40 M/mm3 (3.65-5.03) L 08/30/20 15:09 Hgb 10.9 gm/dl (10.1-14.3) 08/30/20 15:09 Hct 31.0 % (30.3-42.9) 08/30/20 15:09 MCV 91 fl (79-97) 08/30/20 15:09 MCH 32 pg (28-32) 08/30/20 15:09 MCHC 35 % (30-34) H 08/30/20 15:09 RDW 13.2 % (13.2-15.2) 08/30/20 15:09 Plt Count 333 K/mm3 (140-440) 08/30/20 15:09 Lymph % (Auto) 34.0 % (13.4-35.0) 08/30/20 15:09 [place] % (Auto) 7.7 % (0.0-7.3) H 08/30/20 15:09 Eos % (Auto) 1.0 % (0.0-4.3) 08/30/20 15:09 Baso % (Auto) 0.5 % (0.0-1.8) 08/30/20 15:09 Lymph # (Auto) 3.0 K/mm3 (1.2-5.4) 08/30/20 15:09 [place] # (Auto) 0.7 K/mm3 (0.0-0.8) 08/30/20 15:09 Eos # (Auto) 0.1 K/mm3 (0.0-0.4) 08/30/20 15:09 Baso # (Auto) 0.0 K/mm3 (0.0-0.1) 08/30/20 15:09 Seg Neutrophils % 56.8 % (40.0-70.0) 08/30/20 15:09 Seg Neutrophils # 4.9 K/mm3 (1.8-7.7) 08/30/20 15:09 PT 12.6 Sec. (12.2-14.9) 08/30/20 15:09 INR 0.95 (0.87-1.13) 08/30/20 15:09 APTT 26.6 Sec. (24.2-36.6) 08/30/20 15:09 Sodium 133 mmol/L (137-145) L 08/30/20 15:09 Potassium 4.1 mmol/L (3.6-5.0) 08/30/20 15:09 Chloride 97.0 mmol/L (98-107) L 08/30/20 15:09 Carbon Dioxide 25 mmol/L (22-30) 08/30/20 15:09 Anion Gap 15 mmol/L 08/30/20 15:09 BUN 16 mg/dL (7-17) 08/30/20 15:09 Creatinine 0.8 mg/dL (0.6-1.2) 08/30/20 15:09 Estimated GFR > 60 ml/min 08/30/20 15:09 BUN/Creatinine Ratio 20 % 08/30/20 15:09 Glucose 135 mg/dL (65-100) H 08/30/20 15:09 Calcium 9.5 mg/dL (8.4-10.2) 08/30/20 15:09 Total Bilirubin 0.40 mg/dL (0.1-1.2) 08/30/20 15:09 AST 31 units/L (5-40) 08/30/20 15:09 ALT 21 units/L (7-56) 08/30/20 15:09 Alkaline Phosphatase 60 units/L (35-129) 08/30/20 15:09 Troponin T < 0.010 ng/mL (0.00-0.029) 08/30/20 19:53 NT-Pro-B Natriuret Pep 344.3 pg/mL (0-900) 08/30/20 15:09 Total Protein 6.9 g/dL (6.3-8.2) 08/30/20 15:09 Albumin 4.2 g/dL (3.9-5) 08/30/20 15:09 Albumin/Globulin Ratio 1.6 % 08/30/20 15:09 Quinn/IV: IV Catheter Type [Left Forearm INT / Saline Lock ] Assessment and Plan Advance Directives: Yes (Full code) VTE prophylaxis?: Chemical Plan of care discussed with patient/family: Yes - Patient Problems (1) Acute coronary syndrome Current Visit: Yes Status: Acute Plan to address problem: Serial troponins CK and CK-MB Lexiscan in the morning Echocardiogram in the morning (2) Hypertension Current Visit: No Status: Chronic Qualifiers: Hypertension type: essential hypertension Qualified Code(s): I10 - Essential (primary) hypertension Plan to address problem: Continue antihypertensives (3) Hyperlipidemia Current Visit: Yes Status: Chronic Qualifiers: Hyperlipidemia type: mixed hyperlipidemia Qualified Code(s): E78.2 - Mixed hyperlipidemia Plan to address problem: Continue statins (4) Coronary artery disease Current Visit: Yes Status: Chronic Qualifiers: Coronary Disease-Associated Artery/Lesion type: [place] artery [place] vs. transplanted heart: [place] heart Plan to address problem: Continue Plavix (5) DVT prophylaxis Current Visit: Yes Status: Acute Plan to address problem: On heparin and GI prophylaxis
[2020-08-30] MEDS ORDERED: ACETAMINOPHEN 325 MG TAB PO PRN (23:47)
[2020-08-30] MEDS ORDERED: ONDANSETRON 4 MG/2 ML INJ IV PRN (23:47)
[2020-08-30] MEDS ORDERED: MORPHINE 2 MG/1 ML INJ IV PRN (23:47)
[2020-08-30] MEDS ORDERED: METOCLOPRAMIDE 10 MG/2 ML INJ IV PRN (23:47)
[2020-08-31] MEDS: SODIUM CHLORIDE 0.9% 1000 ML 1,000 ML IV SCH ×2 (00:45→14:29)
[2020-08-31] MEDS: HEPARIN 5,000 UNIT/1 ML VIAL SUB-Q SCH ×2 (00:45→14:31)
[2020-08-31] MEDS: FAMOTIDINE 20 MG/2 ML INJ IV SCH ×2 (00:45→11:09)
[2020-08-31 03:28] LABS: Basophils # (Auto) 0.1 K/mm3 (0.0-0.1); Basophils % (Auto) 0.6 % (0.0-1.8); Eosinophils # (Auto) 0.2 K/mm3 (0.0-0.4); Eosinophils % (Auto) 1.7 % (0.0-4.3); Hematocrit 31.9 % (30.3-42.9); Hemoglobin 11.2 gm/dl (10.1-14.3); Lymphocytes # (Auto) 3.2 K/mm3 (1.2-5.4); Lymphocytes % (Auto) 30.9 % (13.4-35.0); Mean Corpuscular HGB Conc 35 % (30-34); Mean Corpuscular Volume 92 fl (79-97); Monocytes # (Auto) 0.9 K/mm3 (0.0-0.8); Monocytes % (Auto) 8.9 % (0.0-7.3); Platelet Count 319 K/mm3 (140-440); Red Blood Count 3.46 M/mm3 (3.65-5.03)
[2020-08-31 03:42] LABS: Alanine Aminotransferase 19 units/L (7-56); Albumin 3.8 g/dL (3.9-5); Blood Urea Nitrogen 15 mg/dL (7-17); Calcium 8.9 mg/dL (8.4-10.2); Hemolysis Index 2
[2020-08-31 03:52] LABS: BUN/Creatinine Ratio 21
[2020-08-31 06:32] LABS: Bilirubin,Urine NEG (Negative); Blood,Urine SM (Negative); Color,Urine Straw (Yellow); Mucus,Urine FEW /HPF; Protein,Urine <15 mg/dL mg/dL (Negative); Urobilinogen,Urine < 2.0 mg/dL (<2.0); WBC,Urine < 1.0 /HPF (0.0-6.0)
[2020-08-31] MEDS ORDERED: REGADENOSON 0.4 MG/5 ML INJ IV ONE ×2 (08:51→09:00)
[2020-08-31] MEDS ORDERED: CLOPIDOGREL 75 MG TAB PO SCH (10:00)
[2020-08-31] MEDS ORDERED: SERTRALINE 50 MG TAB PO SCH (10:00)
[2020-08-31 13:45] LABS: Creatine Kinase MB 11.8 ng/mL (0.0-4.0)
[2020-08-31 16:31] VITALS: BP 149/92
--- NOTE | 2020-08-31 21:00 | Treadmill Report ---
THALLIUM STRESS TEST REPORT LEFT VENTRICLE: Left ventricular chamber size is within normal spread. Perfusion study demonstrates homogeneous uptake of the tracer in all segments, no defects identified. Gated analysis demonstrates normal left ventricular systolic function, ejection fraction greater than 70%. CONCLUSION: Normal myocardial perfusion study. JOB# [id number] CA/NTS
[2020-08-31] MEDS ORDERED: PRAVASTATIN 20 MG TAB PO SCH (22:00)
[2020-09-01] MEDS ORDERED: FAMOTIDINE 20 MG TAB PO SCH (10:00)
== END 2020-08-31 17:14 | disposition home or self-care (01) ==
LOC: ED 12:45 → 4A 19:24 → INTOOBSV 19:24 → 4A 22:41
PROVIDERS: ADMIT Internal Medicine; ATTEND Internal Medicine
DX: I24.9 Acute ischemic heart disease, unspecified (principal); I25.10 Atherosclerotic heart disease of native coronary artery without angina pectoris; I11.0 Hypertensive heart disease with heart failure; I50.9 Heart failure, unspecified; E78.5 Hyperlipidemia, unspecified; I42.9 Cardiomyopathy, unspecified; M19.90 Unspecified osteoarthritis, unspecified site; M81.0 Age-related osteoporosis without current pathological fracture; Z90.49 Acquired absence of other specified parts of digestive tract
CPT/HCPCS: 36415; 71046; 78452; 80053; 81001; 82550; 82553; 83036; 83880; 84484; 85025; 85610; 85730; 93005; 93017; 96361; 96365; 96372; 96374; 96375; 96376; 99285; A9502; G0378; J1644; J2785; J7030